=== PATIENT | male | born 1960 | race Caucasian/White ===

== ENCOUNTER → 2016-10-14 | Outpatient (CLI) | payer OTHER ==
[2016-10-14 12:32] LABS: APPEARANCE,URINE CLEAR; BILIRUBIN,URINE NEGATIVE (NEGATIVE); GLUCOSE, URINE NEGATIVE (NEGATIVE); KETONES,URINE NEGATIVE (NEGATIVE); LEUKOCYTE ESTERASE,URINE TRACE (NEGATIVE); NITRITE,URINE NEGATIVE (NEGATIVE); PROTEIN,URINE NEGATIVE (NEGATIVE); URINE SPECIFIC GRAVITY 1.008; UROBILINOGEN,URINE NEGATIVE mg/dL (<2.0)
[2016-10-14 12:52] LABS: ANION GAP 11 (5-19); BLOOD UREA NITROGEN 6 mg/dL (7-20); CALCIUM 9.2 mg/dL (8.4-10.2); CARBON DIOXIDE 26 mmol/L (22-30); CHLORIDE 105 mmol/L (98-107); CREATININE RESULT 0.92 mg/dL (0.52-1.25); GLUCOSE 82 mg/dL (75-110); POTASSIUM 4.9 mmol/L (3.6-5.0); SODIUM 141.7 mmol/L (137-145)
--- NOTE | 2016-10-14 14:20 | EKG REPORT ---
SEVERITY:- ABNORMAL ECG - SINUS RHYTHM LEFT VENTRICULAR HYPERTROPHY : Confirmed by: Marian Correa 14-Oct-2016 14:19:44
[2016-10-15 09:21] LABS: HEMOGLOBIN 14.7 g/dL (13.5-17.0); HGB HCT DIFFERENCE 0.1; MEAN CORPUSCULAR HEMOGLOBIN 30.5 pg (27.0-33.4); MEAN CORPUSCULAR HGB CONC 33.3 g/dL (32.0-36.0); MEAN CORPUSCULAR VOLUME 92 fl (80-97); RED BLOOD COUNT 4.81 10^6/uL (4.35-5.55); RED CELL DISTRIBUTION WIDTH 15.8 % (11.5-14.0); WHITE BLOOD COUNT 14.3 10^3/uL (4.0-10.5)
[2016-10-19 08:03] VITALS: BP 159/110
== END ==
LOC: OD 08:31 → EDSTATUS 10-25 12:30
PROVIDERS: ATTEND Orthopaedic Surgery
DX: Z01.810 Encounter for preprocedural cardiovascular examination (principal); Z01.812 Encounter for preprocedural laboratory examination; Z01.818 Encounter for other preprocedural examination
CPT/HCPCS: 36415; 71020; 80048; 81001; 85025; 85027; 93005; 93010

== ENCOUNTER 2017-01-12 05:35 | Inpatient (IN) | payer OTHER ==
[2017-01-04 10:49] LABS: APPEARANCE,URINE CLEAR; BILIRUBIN,URINE NEGATIVE (NEGATIVE); GLUCOSE, URINE NEGATIVE (NEGATIVE); KETONES,URINE NEGATIVE (NEGATIVE); LEUKOCYTE ESTERASE,URINE NEGATIVE (NEGATIVE); NITRITE,URINE NEGATIVE (NEGATIVE); PROTEIN,URINE NEGATIVE (NEGATIVE); URINE SPECIFIC GRAVITY 1.008; UROBILINOGEN,URINE NEGATIVE mg/dL (<2.0)
[2017-01-04 10:59] LABS: HEMATOCRIT 45.8 % (37.9-51.0); HEMOGLOBIN 15.4 g/dL (13.5-17.0); HGB HCT DIFFERENCE 0.4; MEAN CORPUSCULAR HEMOGLOBIN 29.7 pg (27.0-33.4); MEAN CORPUSCULAR HGB CONC 33.6 g/dL (32.0-36.0); MEAN CORPUSCULAR VOLUME 89 fl (80-97); RED BLOOD COUNT 5.18 10^6/uL (4.35-5.55); RED CELL DISTRIBUTION WIDTH 14.1 % (11.5-14.0); WHITE BLOOD COUNT 10.4 10^3/uL (4.0-10.5)
--- NOTE | 2017-01-04 11:27 | RADIOLOGY REPORT (SQ) ---
EXAM DESCRIPTION: CHEST PA/LATERAL COMPLETED DATE/TIME: 01/04/2017 10:51 am REASON FOR STUDY: PRE OP COMPARISON: Two-view chest 10/14/2016 EXAM PARAMETERS: NUMBER OF VIEWS: two views TECHNIQUE: Digital Frontal and Lateral radiographic views of the chest acquired. RADIATION DOSE: NA LIMITATIONS: none FINDINGS: LUNGS AND PLEURA: Mild pulmonary vascular prominence. No pleural effusions. No pneumothorax. No alveolar infiltrates. MEDIASTINUM AND HILAR STRUCTURES: No masses or contour abnormalities. HEART AND VASCULAR STRUCTURES: Heart normal size. No evidence for failure. BONES: Old right posterior 8th rib fracture HARDWARE: None in the chest. OTHER: No other significant finding. IMPRESSION: NO SIGNIFICANT RADIOGRAPHIC FINDING IN THE CHEST. TECHNICAL DOCUMENTATION: JOB ID: [id number] [employer]- All Rights Reserved
[2017-01-04 11:30] LABS: ANION GAP 10 (5-19); BLOOD UREA NITROGEN 5 mg/dL (7-20); CALCIUM 8.9 mg/dL (8.4-10.2); CARBON DIOXIDE 28 mmol/L (22-30); CHLORIDE 88 mmol/L (98-107); CREATININE RESULT 0.83 mg/dL (0.52-1.25); GLUCOSE 79 mg/dL (75-110); POTASSIUM 3.8 mmol/L (3.6-5.0); SODIUM 125.8 mmol/L (137-145)
--- NOTE | 2017-01-04 19:51 | EKG REPORT ---
SEVERITY:- ABNORMAL ECG - SINUS RHYTHM FIRST DEGREE AV BLOCK NONSPECIFIC INTRAVENTRICULAR CONDUCTION DELAY LEFT VENTRICULAR HYPERTROPHY : Confirmed by: Marian Correa 04-Jan-2017 19:50:32
[~2017-01-12 05:35] MED LIST: BUPIVACAINE INJ/PF LIPOSOME/PF 266 MG/20 ML SDV IJ PRN; CEFAZOLIN INJ 1 GM VIAL IV PRN; IBUPROFEN 800 MG/NS 250 ML IV PRN; LANSOPRAZOLE 15 MG TAB.RAP.DR PO PRN; OXYCODONE HCL SR 10 MG TABLET PO PRN; SCOPOLAMINE HYDROBROMIDE 1.5 MG PATCH.TD72 TOP PRN; VANCOMYCIN HCL 1,000 MG in DEXTROSE 5%-WATER 250 ML IV PRN
[2017-01-12] MEDS: OXYCODONE HCL SR 10 MG TABLET PO SCH ×2 (06:31→21:21)
[2017-01-12] MEDS ORDERED: THROMBIN (BOVINE) TOPICAL 20000 UNIT VIAL ONE (06:40)
[2017-01-12] MEDS ORDERED: THROMBIN (BOVINE) 5000 UNIT EPITAXIS KIT ONE (06:40)
[2017-01-12] MEDS ORDERED: BUPIVACAINE INJ/PF LIPOSOME/PF 266 MG/20 ML SDV ONE (06:41)
[2017-01-12] MEDS ORDERED: MIDAZOLAM 2 MG/2 ML INJ ONE (07:17)
[2017-01-12] MEDS ORDERED: PROMETHAZINE HCL INJ 25 MG/1 ML VIAL ONE (07:18)
[2017-01-12] MEDS ORDERED: FENTANYL CITRATE INJ/PF 250 MCG/5 ML AMPULE ONE (07:18)
[2017-01-12] MEDS ORDERED: TRANEXAMIC ACID INJ/PF 1,000 MG/10 ML SDV IV ONE ×2 (07:18→09:49)
[2017-01-12] MEDS ORDERED: PROPOFOL INJ 200 MG/20 ML VIAL IV ONE (07:18)
[2017-01-12] MEDS ORDERED: KETAMINE HCL INJ 500 MG/10 ML VIAL ONE (07:26)
[2017-01-12] MEDS: MORPHINE SULFATE 10 MG/ML INJ IV PRN ×6 (07:50→22:56)
[2017-01-12] MEDS ORDERED: VANCOMYCIN HCL INJ 1000 MG VIAL ONE (08:03)
[2017-01-12] MEDS ORDERED: FENTANYL CITRATE INJ/PF 100 MCG/2 ML AMPUL IV PRN ×3 (08:08)
[2017-01-12] MEDS ORDERED: DIPHENHYDRAMINE HCL 50 MG/ML VIAL IV PRN ×2 (08:08→08:58)
[2017-01-12] MEDS ORDERED: MEPERIDINE HCL/PF INJ 25 MG/1 ML DISP.SYRIN IV PRN (08:08)
[2017-01-12] MEDS ORDERED: MORPHINE SULFATE 10 MG/ML INJ IV PRN ×3 (08:08→08:58)
[2017-01-12] MEDS ORDERED: OXYCODONE-ACETAMINOPHEN 5-325 MG TABLET PO PRN ×2 (08:08)
[2017-01-12] MEDS ORDERED: PROMETHAZINE HCL INJ 25 MG/1 ML VIAL IV PRN ×2 (08:08)
[2017-01-12] MEDS ORDERED: ERGOCALCIFEROL PO PRN (08:57)
[2017-01-12] MEDS ORDERED: MAG HYDROX/AL HYDROX/SIMETH SUSP 30 ML UDCUP PO PRN (08:58)
[2017-01-12] MEDS ORDERED: ONDANSETRON HCL INJ/PF 4 MG/2 ML SDV IV PRN (08:58)
[2017-01-12] MEDS ORDERED: ZOLPIDEM TARTRATE 5 MG TABLET PO PRN (08:58)
[2017-01-12] MEDS ORDERED: OXYCODONE HCL IR 5 MG TABLET PO PRN (08:58)
[2017-01-12] MEDS ORDERED: ACETAMINOPHEN 325 MG TABLET PO PRN (08:58)
[2017-01-12] MEDS ORDERED: ONDANSETRON 4 MG TAB.RAPDIS PO PRN (08:58)
--- NOTE | 2017-01-12 09:03 | Operative Report ---
Operative Report DATE OF SURGERY: 01/12/17 PREOPERATIVE DIAGNOSIS: Right knee arthritis OPERATION: Right knee arthroplasty SURGEON: FABRIZIO VALLE ANESTHESIA: GA TISSUE REMOVED OR ALTERED: Bone to pathology ESTIMATED BLOOD LOSS: 100 PROCEDURE: Implants used: Femur: Triathlon #8 CR femur Tibia: 8 Tibia Tibial liner: 11 mm CS insert Patella: 40 mm oval patella Procedure with the patient supine on the operating table the right the limb is prepped and draped in a sterile fashion. The limb was elevated for exsanguination and the tourniquet inflated to 280 torr. A standard midline median parapatellar approach the knee is taken. Access is gained to the femoral canal through the intercondylar notch. Intramedullary alignment instrumentation used to resect 10 mm of distal femur in 5 of valgus. Sizing guide indicated a size 8 femur. Appropriate cutting jig is then used to fashion anterior posterior and chamfer cuts. A trial reduction femurs performed and this is judged to be adequate. Attention was next turned to the tibia. Using an extra medullary alignment system 9 millimeters was resected off the medial tibial plateau. This is sized to a size 8 tibia. A trial reduction was now performed with a 8 femur and a 8 tibia using a 11 millimeters spacer. It is full extension and central patellofemoral tracking. The articular surface the patella was next resected using an oscillating saw. All trial implants were removed. Polymethylmethacrylate is mixed and used to cement the above implants in place. On adequate curing the cement excess cement was removed the tourniquet was deflated hemostasis obtained the wound is then closed in layers using interrupted Vicryl followed by prabhakar. A sterile compressive dressing was applied and the patient returned to recovery room in satisfactory condition.
--- NOTE | 2017-01-12 09:53 | RADIOLOGY REPORT (SQ) ---
EXAM DESCRIPTION: KNEE RIGHT 2 VIEWS COMPLETED DATE/TIME: 01/12/2017 9:39 am REASON FOR STUDY: Post OP -Long Cassette in PACU M17.11 UNILATERAL PRIMARY OSTEOARTHRITIS, RIGHT KN EE COMPARISON: None. NUMBER OF VIEWS: Two view(s). TECHNIQUE: Digital radiographic images of the right knee post-procedure. LIMITATIONS: None. FINDINGS: BONES: No worrisome or unexpected findings post-procedure. DEVICE: Total knee arthroplasty. SOFT TISSUES: No worrisome findings. Expected postoperative soft tissue changes. IMPRESSION: SATISFACTORY POSTOPERATIVE RIGHT KNEE. TECHNICAL DOCUMENTATION: JOB ID: [id number] [employer]- All Rights Reserved
[2017-01-12] MEDS ORDERED: PREGABALIN 100 MG CAPSULE PO SCH (10:00)
[2017-01-12] MEDS ORDERED: HYDROXYZINE HCL 100 MG PO SCH (10:00)
[2017-01-12] MEDS ORDERED: NALTREXONE PO SCH (10:00)
[2017-01-12] MEDS ORDERED: MORPHINE SULFATE PO SCH (10:00)
[2017-01-12] MEDS: FENTANYL CITRATE INJ/PF 100 MCG/2 ML AMPUL ONE ×2 (10:05→10:08)
[2017-01-12] MEDS: MORPHINE SULFATE 10 MG/ML INJ ONE ×2 (10:14→10:18)
[2017-01-12] MEDS: PRENATAL VITAMIN W-O CA NO5/FE FUMARATE/FA CAPSULE PO SCH (11:18)
[2017-01-12] MEDS: SENNOSIDES/DOCUSATE 8.6-50 MG 1 EACH TABLET PO SCH ×2 (11:19→17:30)
[2017-01-12] MEDS: ALPRAZOLAM 0.5 MG TABLET PO SCH ×2 (11:19→17:31)
[2017-01-12] MEDS: PREGABALIN 75 MG CAPSULE PO SCH ×3 (11:22→23:11)
[2017-01-12] MEDS ORDERED: ROCURONIUM BROMIDE INJ 50 MG/5 ML VIAL IV ONE (11:49)
[2017-01-12] MEDS ORDERED: SUCCINYLCHOLINE CHLORIDE INJ 200 MG/10 ML VIAL ONE (11:49)
[2017-01-12] MEDS ORDERED: DEXAMETHASONE SOD PHOSPHATE INJ 4 MG/1 ML VIAL ONE (11:49)
[2017-01-12] MEDS ORDERED: ONDANSETRON HCL INJ/PF 4 MG/2 ML SDV ONE (11:49)
[2017-01-12] MEDS ORDERED: LIDOCAINE 2% INJ-PF (20 MG/ML) 10 ML AMPUL ONE (11:49)
[2017-01-12] MEDS: MIRTAZAPINE 15 MG TABLET PO SCH (17:29)
[2017-01-12] MEDS ORDERED: HYDROXYZINE HCL 10 MG TABLET PO SCH (18:00)
[2017-01-12] MEDS ORDERED: VANCOMYCIN HCL 1,000 MG in DEXTROSE 5%-WATER 250 ML IV ONE (20:58)
[2017-01-12] MEDS: RIVAROXABAN 10 MG TABLET PO SCH (21:22)
[2017-01-13] MEDS: MORPHINE SULFATE 10 MG/ML INJ IV PRN ×3 (01:58→07:07)
[2017-01-13 04:55] LABS: HEMATOCRIT 37.3 % (37.9-51.0); HEMOGLOBIN 12.5 g/dL (13.5-17.0); HGB HCT DIFFERENCE 0.2; MEAN CORPUSCULAR HEMOGLOBIN 29.9 pg (27.0-33.4); MEAN CORPUSCULAR HGB CONC 33.4 g/dL (32.0-36.0); MEAN CORPUSCULAR VOLUME 90 fl (80-97); RED BLOOD COUNT 4.17 10^6/uL (4.35-5.55); WHITE BLOOD COUNT 17.3 10^3/uL (4.0-10.5)
[2017-01-13 05:12] LABS: ANION GAP 6 (5-19); BLOOD UREA NITROGEN 7 mg/dL (7-20); CALCIUM 8.7 mg/dL (8.4-10.2); CARBON DIOXIDE 28 mmol/L (22-30); CHLORIDE 100 mmol/L (98-107); CREATININE RESULT 0.94 mg/dL (0.52-1.25); GLUCOSE 115 mg/dL (75-110); POTASSIUM 3.9 mmol/L (3.6-5.0); SODIUM 134.3 mmol/L (137-145)
[2017-01-13] MEDS: LANSOPRAZOLE 30 MG TAB.RAP.DR PO SCH (05:18)
[2017-01-13] MEDS: PREGABALIN 75 MG CAPSULE PO SCH ×4 (05:18→23:36)
[2017-01-13] MEDS ORDERED: ZOLPIDEM TARTRATE 5 MG TABLET PO PRN (07:43)
[2017-01-13] MEDS ORDERED: MAG HYDROX/AL HYDROX/SIMETH SUSP 30 ML UDCUP PO PRN (07:44)
[2017-01-13] MEDS ORDERED: ONDANSETRON HCL INJ/PF 4 MG/2 ML SDV IV PRN (07:44)
[2017-01-13] MEDS: MORPHINE SULFATE 10 MG/ML INJ IM PRN ×6 (08:44→19:01)
[2017-01-13] MEDS: RINGERS SOLUTION,LACTATED 1,000 ML IV PRN ×2 (08:56→17:16)
[2017-01-13] MEDS: PRENATAL VITAMIN W-O CA NO5/FE FUMARATE/FA CAPSULE PO SCH (09:15)
[2017-01-13] MEDS: SENNOSIDES/DOCUSATE 8.6-50 MG 1 EACH TABLET PO SCH ×2 (09:15→17:11)
[2017-01-13] MEDS: OXYCODONE HCL SR 10 MG TABLET PO SCH (09:16)
[2017-01-13] MEDS: ALPRAZOLAM 0.5 MG TABLET PO SCH ×2 (09:17→17:12)
[2017-01-13] MEDS: HYDROXYZINE PAMOATE 50 MG CAPSULE PO SCH ×2 (09:22→17:15)
[2017-01-13] MEDS: MIRTAZAPINE 15 MG TABLET PO SCH (17:11)
[2017-01-13] MEDS: OXYCODONE HCL SR 40 MG TABLET PO SCH (21:05)
[2017-01-13] MEDS: RIVAROXABAN 10 MG TABLET PO SCH (21:05)
[2017-01-14 05:24] LABS: HEMOGLOBIN 12.6 g/dL (13.5-17.0); HGB HCT DIFFERENCE 0.8; MEAN CORPUSCULAR HEMOGLOBIN 30.9 pg (27.0-33.4); MEAN CORPUSCULAR HGB CONC 34.2 g/dL (32.0-36.0); MEAN CORPUSCULAR VOLUME 91 fl (80-97); RED BLOOD COUNT 4.09 10^6/uL (4.35-5.55); WHITE BLOOD COUNT 12.9 10^3/uL (4.0-10.5)
[2017-01-14] MEDS: LANSOPRAZOLE 30 MG TAB.RAP.DR PO SCH (05:50)
[2017-01-14] MEDS: PREGABALIN 75 MG CAPSULE PO SCH (05:50)
--- NOTE | 2017-01-14 07:03 | PDOC DISCHARGE SUMMARY ---
General - Admit/Disc Date/PCP Admission Date/Primary Care Provider: 01/12/17 05:35 ISELA DAVIS NP Discharge Date: 01/14/17 - Discharge Diagnosis (1) Arthritis of knee, right Is this a current diagnosis for this admission?: Yes - Additional Information Discharge Diet: As Tolerated, Regular Discharge Activity: Balance Activity w/Rest, No Driving, No tub bath Home Medications: Oxycodone HCl/Acetaminophen [Percocet 10-325 mg Tablet] 2 each PO QID 08/28/15 Pregabalin [Lyrica 100 mg Capsule] 150 mg PO QID 08/28/15 Alprazolam [Xanax 0.5 mg Tablet] 0.5 mg PO BID 10/13/16 Ergocalciferol (Vitamin D2) [Vitamin D] 1 tab PO ASDIR PRN 10/13/16 Hydroxyzine HCl 100 mg PO BID 10/13/16 Mirtazapine [Remeron] 30 mg PO QPM 10/13/16 Morphine Sulfate/Naltrexone [Embeda ER 50-2 mg Capsule] 1 each PO BID 10/19/16 Oxycodone HCl [Oxy-Ir 5 mg Tablet] 10 mg PO Q6HP PRN #0 tablet 01/14/17 Rivaroxaban [Xarelto 10 mg Tablet] 10 mg PO QHS #0 tablet 01/14/17 History of Present Illness History of Present Illness: MILAGROS FAIRBANKS JR is a 56 year old male post left above-knee amputation now progressive right knee pain and functional disability secondary osteoarthritis. Patient is admitted for elective right knee arthroplasty. Hospital Course Hospital Course: To the operating room where he undergoes an uncomplicated right knee arthroplasty. Is returned to the floor in satisfactory condition. Initially there is problems with adequacy of analgesia. This is addressed with medication. Hematocrit remains above 37%. The patient makes excellent progress with physical therapy. Physical Exam Vital Signs: Temp Pulse Resp BP Pulse Ox 37.6 C 86 17 146/76 H 93 01/13/17 23:51 01/13/17 23:51 01/13/17 23:51 01/13/17 23:51 01/13/17 23:51 Intake & Output 01/13/17 01/14/17 01/15/17 06:59 06:59 06:59 Intake Total 5500 3400 Output Total 4700 5550 Balance 800 -2150 Weight 113.4 kg 113.4 kg General appearance: PRESENT: no acute distress Head exam: PRESENT: normocephalic Eye exam: PRESENT: EOMI Respiratory exam: PRESENT: unlabored Cardiovascular exam: PRESENT: RRR Pulses: PRESENT: +1 pedal pulses bilateral Vascular exam: PRESENT: normal capillary refill GI/Abdominal exam: PRESENT: soft Rectal exam: PRESENT: deferred Extremities exam: PRESENT: other - Right lower extremity picot dressing with a small amount of drainage distally is otherwise clean dry and intact. There is minimal pedal edema. Neurovascular examination is intact. Neurological exam: PRESENT: alert, awake, oriented to person, oriented to place , oriented to time, oriented to situation. ABSENT: motor sensory deficit Psychiatric exam: PRESENT: appropriate affect, normal mood. ABSENT: homicidal ideation, suicidal ideation Skin exam: PRESENT: dry, intact, warm. ABSENT: cyanosis, rash Results Laboratory Results: 01/14/17 04:58 01/13/17 04:34 01/14/17 04:58 WBC 12.9 H RBC 4.09 L Hgb 12.6 L Hct 37.0 L MCV 91 MCH 30.9 MCHC 34.2 RDW 15.0 H Plt Count 204 Impressions: Chest X-Ray 01/04/17 10:16 IMPRESSION: NO SIGNIFICANT RADIOGRAPHIC FINDING IN THE CHEST. Knee X-Ray 01/12/17 09:00 IMPRESSION: SATISFACTORY POSTOPERATIVE RIGHT KNEE. Status: Imported from PACS Plan Discharge Plan: Discharge home with home health nursing, home health physical therapy, wheeled walker, bedside commode. Visiting nurse service to change right knee picot dressing on postop day 7 and replaced with an OpSite. Follow-up will be with Dr. Parrish and [facility] for surgery in 2 weeks for staple removal. Time Spent: Less than 30 Minutes
[2017-01-14] MEDS: ALPRAZOLAM 0.5 MG TABLET PO SCH (09:36)
[2017-01-14] MEDS: SENNOSIDES/DOCUSATE 8.6-50 MG 1 EACH TABLET PO SCH (09:36)
[2017-01-14] MEDS: PRENATAL VITAMIN W-O CA NO5/FE FUMARATE/FA CAPSULE PO SCH (09:36)
[2017-01-14] MEDS: OXYCODONE HCL SR 40 MG TABLET PO SCH (09:36)
[2017-01-14] MEDS: HYDROXYZINE PAMOATE 50 MG CAPSULE PO SCH (09:37)
[2017-01-14 12:03] VITALS: BP 140/82
== END 2017-01-14 12:53 | disposition home health service (06) | DRG 470 ==
LOC: INOR 05:35 → 4S 11:07
PROVIDERS: ADMIT Orthopaedic Surgery; ATTEND Orthopaedic Surgery
PROC: 0SRC0J9 Replacement of Right Knee Joint with Synthetic Substitute, Cemented, Open Approach (ICD-10-PCS; principal; 2017-01-12 07:30)
DX: M17.11 Unilateral primary osteoarthritis, right knee (principal); Z79.899 Other long term (current) drug therapy; Z89.612 Acquired absence of left leg above knee; Z88.6 Allergy status to analgesic agent; Z91.013 Allergy to seafood; Z83.3 Family history of diabetes mellitus; Z80.1 Family history of malignant neoplasm of trachea, bronchus and lung
CPT/HCPCS: 01402; 36415; 71020; 80048; 81001; 85027; 88305; 93005; 93010; 94799; C9290; J0330; J0690; J1100; J1741; J2250; J2270; J2405; J2550; J2704; J3010; J3370; J3490; J7050; J7060; J7120

== ENCOUNTER 2017-05-25 05:29 | Day surgery (SDC) | payer OTHER ==
[2017-05-23 09:53] LABS: ABSOLUTE BASOPHILS # (AUTO) 0.1 10^3/uL (0.0-0.2); ABSOLUTE EOSINOPHILS # (AUTO) 0.3 10^3/uL (0.0-0.6); ABSOLUTE LYMPHOCYTES (AUTO) 2.1 10^3/uL (0.5-4.7); ABSOLUTE NEUT (AUTO) 5.2 10^3/uL (1.7-8.2); BASOPHILS % (AUTO) 1.1 % (0-2); HEMATOCRIT 40.7 % (37.9-51.0); HGB HCT DIFFERENCE 1.3; LYMPHOCYTES % (AUTO) 23.9 % (13-45); MEAN CORPUSCULAR HEMOGLOBIN 30.3 pg (27.0-33.4); MEAN CORPUSCULAR HGB CONC 34.4 g/dL (32.0-36.0); MEAN CORPUSCULAR VOLUME 88 fl (80-97); MONOCYTES % (AUTO) 11.1 % (3-13); RED BLOOD COUNT 4.62 10^6/uL (4.35-5.55); RED CELL DISTRIBUTION WIDTH 13.8 % (11.5-14.0); SEGMENTED NEUTROPHILS % (AUTO) 60.9 % (42-78); WHITE BLOOD COUNT 8.6 10^3/uL (4.0-10.5)
--- NOTE | 2017-05-23 09:54 | EKG REPORT ---
SEVERITY:- ABNORMAL ECG - SINUS RHYTHM FIRST DEGREE AV BLOCK NONSPECIFIC INTRAVENTRICULAR CONDUCTION DELAY LEFT VENTRICULAR HYPERTROPHY : Confirmed by: Marian Correa 23-May-2017 09:53:38
[2017-05-23 10:24] LABS: ANION GAP 13 (5-19); BLOOD UREA NITROGEN 5 mg/dL (7-20); CALCIUM 8.7 mg/dL (8.4-10.2); CARBON DIOXIDE 30 mmol/L (22-30); CHLORIDE 88 mmol/L (98-107); CREATININE RESULT 0.92 mg/dL (0.52-1.25); GLUCOSE 84 mg/dL (75-110); POTASSIUM 3.8 mmol/L (3.6-5.0); SODIUM 130.7 mmol/L (137-145)
[2017-05-23 12:16] LABS: APPEARANCE,URINE CLEAR; BILIRUBIN,URINE NEGATIVE (NEGATIVE); GLUCOSE, URINE NEGATIVE (NEGATIVE); KETONES,URINE NEGATIVE (NEGATIVE); LEUKOCYTE ESTERASE,URINE NEGATIVE (NEGATIVE); NITRITE,URINE NEGATIVE (NEGATIVE); PROTEIN,URINE NEGATIVE (NEGATIVE); URINE SPECIFIC GRAVITY 1.009; UROBILINOGEN,URINE NEGATIVE mg/dL (<2.0)
[2017-05-23 12:24] LABS: BACTERIA,URINE TRACE /HPF
[~2017-05-25 05:29] MED LIST changes: -BUPIVACAINE INJ/PF LIPOSOME/PF 266 MG/20 ML SDV IJ PRN; +CEFAZOLIN 2 GM/D5W RTU 2 GM/50 ML RTUPB IV PRN; -CEFAZOLIN INJ 1 GM VIAL IV PRN; -IBUPROFEN 800 MG/NS 250 ML IV PRN; +LACTATED RINGERS 1000 ML IV PRN; -LANSOPRAZOLE 15 MG TAB.RAP.DR PO PRN; +LIDOCAINE 0.5% INJ-PF (5 MG/ML) 50 ML SDV SUBCUT PRN; -OXYCODONE HCL SR 10 MG TABLET PO PRN; -SCOPOLAMINE HYDROBROMIDE 1.5 MG PATCH.TD72 TOP PRN; -VANCOMYCIN HCL 1,000 MG in DEXTROSE 5%-WATER 250 ML IV PRN
[2017-05-25] MEDS ORDERED: MIDAZOLAM 2 MG/2 ML INJ ONE (07:11)
[2017-05-25] MEDS ORDERED: PROPOFOL INJ 200 MG/20 ML VIAL IV ONE (07:12)
[2017-05-25] MEDS ORDERED: KETAMINE HCL INJ 500 MG/10 ML VIAL ONE (07:12)
[2017-05-25] MEDS ORDERED: FENTANYL CITRATE INJ/PF 100 MCG/2 ML AMPUL ONE (07:12)
[2017-05-25] MEDS ORDERED: DIPHENHYDRAMINE HCL 50 MG/ML VIAL IV PRN (08:06)
[2017-05-25] MEDS ORDERED: PROMETHAZINE HCL INJ 25 MG/1 ML VIAL IV PRN ×2 (08:06)
[2017-05-25] MEDS ORDERED: MEPERIDINE HCL/PF INJ 25 MG/1 ML DISP.SYRIN IV PRN (08:06)
[2017-05-25] MEDS ORDERED: BUPIVACAINE HCL 0.5%-EPI 1:200000 INJ/PF 30 ML VIAL ONE (08:06)
[2017-05-25] MEDS ORDERED: FENTANYL CITRATE INJ/PF 100 MCG/2 ML AMPUL IV PRN ×3 (08:06)
[2017-05-25] MEDS ORDERED: MORPHINE SULFATE 10 MG/ML INJ IV PRN (08:06)
[2017-05-25] MEDS ORDERED: OXYCODONE-ACETAMINOPHEN 5-325 MG TABLET PO PRN ×2 (08:06)
--- NOTE | 2017-05-25 08:17 | Operative Report ---
Operative Report DATE OF SURGERY: 05/25/17 PREOPERATIVE DIAGNOSIS: Right patellar tendinitis status post total knee arthroplasty OPERATION: Debridement of patellar tendinitis and repair of patellar tendon SURGEON: FABRIZIO VALLE ANESTHESIA: GA TISSUE REMOVED OR ALTERED: Cultures to microbiology, tissue to pathology ESTIMATED BLOOD LOSS: 100 PROCEDURE: The patient supine on the operative table the right lower extremities prepped and draped in sterile fashion. Limb was elevated for exsanguination but the tourniquet is nonfunctional. The decision was made to proceed without the tourniquet which would require reprepping and draping. A longitudinal incision is made the distal end of the knee incision extending distally over the tibial tubercle. Sharp dissection was used to dissect medial around the existing patellar tendon. Upon entering the knee capsule cultures are taken. The fibrous material underlying the tibial tubercles debrided using combination of a rondure and a curette. The amount of bone in the tibial tubercle does not appear to be substantial enough to be secured with a screw and a decision was made to anchor this with suture. The bone underlying the insertion of the patella tendon is roughened with a rongeur for improved adhesion. A #5 fire FiberWire was then passed in a double loop fashion between the tibial tubercle/ patellar tendon and the underlying tibia. Prior to tying the suture down the space was packed with Vitoss bone graft substitute. The FiberWire is then cinched down. The wound is irrigated. The knee capsule was repaired using interrupted 0 Vicryl as is the subcutaneous tissue followed by prabhakar. A sterile compressive dressing was applied and the patient's return to the PACU in satisfactory condition.
[2017-05-25] MEDS ORDERED: MORPHINE SULFATE 10 MG/ML INJ ONE (08:18)
[2017-05-25] MEDS: FENTANYL CITRATE INJ/PF 100 MCG/2 ML AMPUL ONE ×2 (08:40→08:45)
[2017-05-25] MEDS: MORPHINE SULFATE 10 MG/ML INJ ONE ×2 (08:55→09:05)
[2017-05-25] MEDS ORDERED: OXYCODONE HCL IR 5 MG TABLET PO PRN (09:05)
[2017-05-25] MEDS ORDERED: ONDANSETRON 4 MG TAB.RAPDIS SL PRN (09:05)
[2017-05-25 10:57] VITALS: BP 127/74
[2017-05-25] MEDS ORDERED: GLYCOPYRROLATE INJ 0.4 MG/2 ML VIAL ONE (13:34)
[2017-05-25] MEDS ORDERED: DEXAMETHASONE SOD PHOSPHATE INJ 4 MG/1 ML VIAL ONE (13:34)
[2017-05-25] MEDS ORDERED: NEOSTIGMINE METHYLSULFATE 10 MG/10 ML VIAL ONE (13:34)
[2017-05-25] MEDS ORDERED: ONDANSETRON HCL INJ/PF 4 MG/2 ML SDV ONE (13:34)
[2017-05-25] MEDS ORDERED: KETOROLAC TROMETHAMINE 60 MG/2 ML SDV ONE (13:34)
[2017-05-25] MEDS ORDERED: LIDOCAINE 2% INJ-PF (20 MG/ML) 2 ML AMPUL ONE (13:34)
[2017-05-25] MEDS ORDERED: SUCCINYLCHOLINE CHLORIDE INJ 200 MG/10 ML VIAL ONE (13:34)
== END 2017-05-25 10:40 | disposition home or self-care (01) ==
LOC: OROUT 05:29
PROVIDERS: ATTEND Orthopaedic Surgery
PROC: 0LBQ0ZZ Excision of Right Knee Tendon, Open Approach (ICD-10-PCS; principal; 2017-05-25 07:30)
DX: M76.51 Patellar tendinitis, right knee (principal); Z96.651 Presence of right artificial knee joint; M19.90 Unspecified osteoarthritis, unspecified site; F17.210 Nicotine dependence, cigarettes, uncomplicated; Z79.899 Other long term (current) drug therapy; Z79.01 Long term (current) use of anticoagulants
CPT/HCPCS: 93005; 36415; 87070; 87205; 85025; 87075; 80048; 81001; 88305 ×2; 93010; 11043; L1830; J2250; J3490 ×2; J1100; J1885; J3010; J2270; J0330; J2405; J2704; J0690; 400

== ENCOUNTER → 2017-06-09 | Outpatient (CLI) | payer OTHER ==
[2017-06-09 11:11] LABS: HEMATOCRIT 41.2 % (37.9-51.0); HEMOGLOBIN 14.2 g/dL (13.5-17.0); HGB HCT DIFFERENCE 1.4; MEAN CORPUSCULAR HEMOGLOBIN 30.4 pg (27.0-33.4); MEAN CORPUSCULAR HGB CONC 34.5 g/dL (32.0-36.0); MEAN CORPUSCULAR VOLUME 88 fl (80-97); RED BLOOD COUNT 4.68 10^6/uL (4.35-5.55); RED CELL DISTRIBUTION WIDTH 13.4 % (11.5-14.0); WHITE BLOOD COUNT 8.4 10^3/uL (4.0-10.5)
[2017-06-09 11:41] LABS: ALANINE AMINOTRANSFERASE 21 U/L (21-72); ALBUMIN 3.8 g/dL (3.5-5.0); ALKALINE PHOSPHATASE 139 U/L (38-126); ANION GAP 11 (5-19); ASPARTATE AMINO TRANSFERASE 17 U/L (17-59); BILIRUBIN,DIRECT 0.2 mg/dL (0.0-0.4); BILIRUBIN,TOTAL 0.3 mg/dL (0.2-1.3); BLOOD UREA NITROGEN 5 mg/dL (7-20); C-REACTIVE PROTEIN 22.4 mg/L (<10.0); CALCIUM 9.5 mg/dL (8.4-10.2); CARBON DIOXIDE 26 mmol/L (22-30); CHLORIDE 99 mmol/L (98-107); GLUCOSE 87 mg/dL (75-110); POTASSIUM 4.6 mmol/L (3.6-5.0); SODIUM 135.8 mmol/L (137-145); TOTAL PROTEIN 6.7 g/dL (6.3-8.2)
[2017-06-09 11:59] LABS: ERYTHROCYTE SEDIMENTATION RATE 22 mm/hr (0-20)
== END ==
LOC: OD 10:34
PROVIDERS: ATTEND Orthopaedic Surgery
DX: T84.398D Other mechanical complication of other bone devices, implants and grafts, subsequent encounter (principal)
CPT/HCPCS: 36415; 80053; 85027; 85652; 86140

== ENCOUNTER → 2017-06-15 | Day surgery (SDC) | payer OTHER ==
[2017-06-14 12:03] LABS: ABSOLUTE BASOPHILS # (AUTO) 0.1 10^3/uL (0.0-0.2); ABSOLUTE EOSINOPHILS # (AUTO) 0.2 10^3/uL (0.0-0.6); ABSOLUTE LYMPHOCYTES (AUTO) 2.4 10^3/uL (0.5-4.7); ABSOLUTE MONOCYTES (AUTO) 0.6 10^3/uL (0.1-1.4); ABSOLUTE NEUT (AUTO) 5.9 10^3/uL (1.7-8.2); BASOPHILS % (AUTO) 1.3 % (0-2); EOSINOPHILS % (AUTO) 2.6 % (0-6); HEMOGLOBIN 15.5 g/dL (13.5-17.0); MEAN CORPUSCULAR HEMOGLOBIN 29.7 pg (27.0-33.4); MEAN CORPUSCULAR HGB CONC 33.6 g/dL (32.0-36.0); MEAN CORPUSCULAR VOLUME 88 fl (80-97); MONOCYTES % (AUTO) 6.9 % (3-13); PLATELET COUNT 347 10^3/uL (150-450); RED CELL DISTRIBUTION WIDTH 13.7 % (11.5-14.0); SEGMENTED NEUTROPHILS % (AUTO) 63.2 % (42-78); TOTAL CELLS COUNTED % (AUTO) 100 %; WHITE BLOOD COUNT 9.4 10^3/uL (4.0-10.5)
[2017-06-14 12:06] LABS: APPEARANCE,URINE CLEAR; BILIRUBIN,URINE NEGATIVE (NEGATIVE); COLOR,URINE STRAW; GLUCOSE, URINE NEGATIVE (NEGATIVE); KETONES,URINE NEGATIVE (NEGATIVE); LEUKOCYTE ESTERASE,URINE NEGATIVE (NEGATIVE); NITRITE,URINE NEGATIVE (NEGATIVE); PROTEIN,URINE NEGATIVE (NEGATIVE); URINE SPECIFIC GRAVITY 1.001; UROBILINOGEN,URINE NEGATIVE mg/dL (<2.0)
[2017-06-14 12:30] LABS: ANION GAP 13 (5-19); BLOOD UREA NITROGEN 9 mg/dL (7-20); CALCIUM 10.1 mg/dL (8.4-10.2); CARBON DIOXIDE 28 mmol/L (22-30); CHLORIDE 93 mmol/L (98-107); GLUCOSE 91 mg/dL (75-110); POTASSIUM 4.8 mmol/L (3.6-5.0); SODIUM 134.3 mmol/L (137-145)
[~2017-06-15] MED LIST changes: -CEFAZOLIN 2 GM/D5W RTU 2 GM/50 ML RTUPB IV PRN; +HYDROMORPHONE HCL INJ/PF 2 MG/ML AMPULE ONE
[2017-06-15 10:01] VITALS: BP 131/86
== END ==
LOC: OROUT 08:43
PROVIDERS: ATTEND Orthopaedic Surgery
DX: Z01.818 Encounter for other preprocedural examination (principal); T84.398D Other mechanical complication of other bone devices, implants and grafts, subsequent encounter; M76.51 Patellar tendinitis, right knee
CPT/HCPCS: 36415; 85025; 80048; 81001; J1170

== ENCOUNTER 2017-06-29 06:07 | Day surgery (SDC) | payer OTHER ==
[2017-06-29] MEDS ORDERED: FENTANYL CITRATE INJ/PF 100 MCG/2 ML AMPUL ONE ×2 (06:54→06:55)
[2017-06-29] MEDS ORDERED: MIDAZOLAM 2 MG/2 ML INJ ONE ×2 (06:55→07:35)
[2017-06-29] MEDS ORDERED: PROPOFOL INJ 200 MG/20 ML VIAL IV ONE ×2 (06:56→10:38)
[2017-06-29] MEDS ORDERED: ACETAMINOPHEN 0 ML IV ONE (06:56)
[2017-06-29] MEDS ORDERED: THROMBIN (BOVINE) TOPICAL 20000 UNIT VIAL ONE (07:28)
[2017-06-29] MEDS ORDERED: BACITRACIN INJ 50,000 UNIT VIAL ONE (07:28)
[2017-06-29] MEDS ORDERED: THROMBIN (BOVINE) 5000 UNIT EPITAXIS KIT ONE (07:28)
[2017-06-29] MEDS ORDERED: POLYMYXIN B SULFATE INJ 500000 UNIT VIAL ONE (07:28)
[2017-06-29] MEDS ORDERED: BUPIVACAINE INJ/PF LIPOSOME/PF 266 MG/20 ML SDV ONE (07:29)
[2017-06-29] MEDS ORDERED: ALBUTEROL SULFATE 0.083% NEB 2.5 MG/3 ML AMPUL NEB ONE (07:40)
[2017-06-29] MEDS ORDERED: MORPHINE SULFATE 10 MG/ML INJ ONE (08:07)
[2017-06-29] MEDS ORDERED: CEFAZOLIN INJ 1 GM VIAL ONE (08:47)
[2017-06-29] MEDS ORDERED: PROMETHAZINE HCL INJ 25 MG/1 ML VIAL IV PRN (09:03)
[2017-06-29] MEDS ORDERED: MORPHINE SULFATE 10 MG/ML INJ IV PRN (09:03)
[2017-06-29] MEDS ORDERED: FENTANYL CITRATE INJ/PF 100 MCG/2 ML AMPUL IV PRN ×3 (09:03)
[2017-06-29] MEDS ORDERED: DIPHENHYDRAMINE HCL 50 MG/ML VIAL IV PRN (09:03)
--- NOTE | 2017-06-29 09:23 | Operative Report ---
Operative Report DATE OF SURGERY: 06/29/17 PREOPERATIVE DIAGNOSIS: Serous drainage status post right knee arthroplasty followed by patellar tendinitis debridement OPERATION: Irrigation debridement of wound SURGEON: FABRIZIO VALLE 1ST ROLLER COASTER ENGINEER: KELLY YANG ANESTHESIA: GA TISSUE REMOVED OR ALTERED: Cultures 2 to microbiology. Tissue 1 to pathology ESTIMATED BLOOD LOSS: Minimal INTRAOPERATIVE FINDINGS: Clean and intact wound bed PROCEDURE: With the patient supine on the operating table the right lower extremity was prepped and draped in a sterile fashion. Limb was elevated for exsanguination tourniquet inflated 280 torr. Subsequently longitudinal incision was made over the distal third of the previous incision. There is a eschar covered sinus tract which is ellipsed. The underlying wound bed is inspected and appears to be viable without any type of fluid collection. The wound bed is cultured 2. The ellipsed skin is sent to pathology. The wound is irrigated with 3 L normal saline containing bacitracin pulse lavage. The tourniquet is deflated. Hemostasis obtained with electrocautery. The wound was reapproximated using interrupted PDS followed by nylon. A sterile compressive dressing was applied and the patient's return to the PACU in satisfactory condition.
[2017-06-29] MEDS ORDERED: OXYCODONE HCL IR 5 MG TABLET PO PRN (09:45)
[2017-06-29] MEDS ORDERED: ONDANSETRON 4 MG TAB.RAPDIS SL PRN (09:45)
[2017-06-29 10:16] LABS: HEMATOCRIT 37.3 % (37.9-51.0); HEMOGLOBIN 12.4 g/dL (13.5-17.0); MEAN CORPUSCULAR HEMOGLOBIN 29.3 pg (27.0-33.4); MEAN CORPUSCULAR HGB CONC 33.2 g/dL (32.0-36.0); MEAN CORPUSCULAR VOLUME 88 fl (80-97); PLATELET COUNT 239 10^3/uL (150-450); RED BLOOD COUNT 4.23 10^6/uL (4.35-5.55); RED CELL DISTRIBUTION WIDTH 13.9 % (11.5-14.0); WHITE BLOOD COUNT 6.5 10^3/uL (4.0-10.5)
[2017-06-29] MEDS: FENTANYL CITRATE INJ/PF 100 MCG/2 ML AMPUL ONE ×2 (10:16→10:23)
[2017-06-29 10:32] LABS: ANION GAP 7 (5-19); BLOOD UREA NITROGEN 5 mg/dL (7-20); C-REACTIVE PROTEIN 18.5 mg/L (<10.0); CALCIUM 9.2 mg/dL (8.4-10.2); CARBON DIOXIDE 29 mmol/L (22-30); CHLORIDE 104 mmol/L (98-107); GLUCOSE 88 mg/dL (75-110); POTASSIUM 4.4 mmol/L (3.6-5.0); SODIUM 140.4 mmol/L (137-145)
[2017-06-29 10:53] LABS: ERYTHROCYTE SEDIMENTATION RATE 11 mm/hr (0-20)
[2017-06-29] MEDS ORDERED: DEXAMETHASONE SOD PHOSPHATE INJ 4 MG/1 ML VIAL ONE (11:53)
[2017-06-29] MEDS ORDERED: SUCCINYLCHOLINE CHLORIDE INJ 200 MG/10 ML VIAL ONE (11:53)
[2017-06-29] MEDS ORDERED: PHENYLEPHRINE HCL INJ/PF 10 MG/1 ML SDV ONE (11:53)
[2017-06-29] MEDS ORDERED: ONDANSETRON HCL INJ/PF 4 MG/2 ML SDV ONE (11:53)
[2017-06-29] MEDS ORDERED: GLYCOPYRROLATE INJ 0.4 MG/2 ML VIAL ONE (11:53)
[2017-06-29] MEDS ORDERED: LIDOCAINE 2% INJ-PF (20 MG/ML) 2 ML AMPUL ONE (11:53)
[2017-06-29] MEDS ORDERED: KETOROLAC TROMETHAMINE INJ/PF 30 MG/1 ML SDV IV ONE (12:00)
[2017-06-29 12:21] VITALS: BP 156/79
== END 2017-06-29 12:30 | disposition home or self-care (01) ==
LOC: OROUT 06:07
PROVIDERS: ATTEND Orthopaedic Surgery
PROC: 0S9C0ZX Drainage of Right Knee Joint, Open Approach, Diagnostic (ICD-10-PCS; principal; 2017-06-29 08:15)
DX: T84.89XD Other specified complication of internal orthopedic prosthetic devices, implants and grafts, subsequent encounter (principal); Z96.651 Presence of right artificial knee joint; M76.51 Patellar tendinitis, right knee; F17.210 Nicotine dependence, cigarettes, uncomplicated; M19.90 Unspecified osteoarthritis, unspecified site; E66.9 Obesity, unspecified; Z79.01 Long term (current) use of anticoagulants; Z68.28 Body mass index [BMI] 28.0-28.9, adult
CPT/HCPCS: 36415; 87070; 87205; 85027; 85652; 87075; 86140; 80048; 94640; 27310; J2250; J3490 ×3; J0690; J1100; J3010; J2270; J2370; J0330; J2405; J2704; 400; C9290; J0131

== ENCOUNTER → 2017-09-08 | Day surgery (SDC) | payer OTHER ==
[~2017-09-08] MED LIST changes: +BUPIVACAINE HCL 0.5 % INJ/PF 30 ML SDV ONE; -HYDROMORPHONE HCL INJ/PF 2 MG/ML AMPULE ONE; -LACTATED RINGERS 1000 ML IV PRN; -LIDOCAINE 0.5% INJ-PF (5 MG/ML) 50 ML SDV SUBCUT PRN; +LIDOCAINE 1% INJ-PF (10 MG/ML) 30 ML SDV ONE
--- NOTE | 2017-09-08 09:26 | Operative Report ---
PROCEDURE: KNEE RADIOFREQUENCY right under ultrasound guidance Preoperative Diagnosis: Right knee osteoarthritis Postoperative Diagnosis: Right knee osteoarthritis 1. Superolateral genicular branch from the vastus lateralis 2. Superomedial genicular branch from the vastus medialis 3. Inferomedial genicular branch from the saphenous nerve 4. Medial retinacular branch from the vastus intermedius DATE OF PROCEDURE: September 08, 2017 ANESTHESIA: Local anesthesia COMPLICATIONS: None reported PROCEDURE IN DETAIL: Hx/PE/meds/allergies/applicable labs reviewed. No changes and no contraindications were found. Full description of the procedure was provided including benefits as well as possible complications including transient increased pain, stomach irritation, mood alteration, transient weakness or parasthesias as well as more serious nerve injury, bleeding, infection or allergic reaction. Informed consent was obtained and documented. The patient was brought to the procedure room and placed on the exam table in a comfortable supine position. The place for needle placement was obtained by manual palpation with ultrasound confirmation. The sterile field was prepared by chloroprep and sterile drapes. Local anesthesia superficial and deep was provided by local infiltration of 2% lidocaine. A 17g 50 mm radiofrequency introducer needle with a 4 mm active tip was placed overlying the right knee joint and using ultrasound guidance the needle was advanced to a bony endpoint on the superiolateral portion of the femoral condyle of the right knee. A second needle was advanced to a bony endpoint on the superiomedial portion of the femoral condyle. A third needle was then placed over the inferiomedial portion of the tibial condyle until a bony endpoint was met. 4th needle placed 3mm above the patella. Attempted aspiration yielded no blood. Transverse ultrasound views showed all the needles at 50% depth of the femur and tibia. Motor stimulation was tested at 2.0 volts with no leg movement. Images were saved in AP and lateral. A mixture consisting of 0.5% bupivacaine was slowly injected. Then a radiofrequency ablation of each of the geniculate nerves were done at 80 degrees Celsius for 2 minutes and 30 seconds each. The needles were withdrawn. The patient tolerated the procedure well. After observation the patient was discharged with instructions and follow up. They were also provided contact information to call regarding any concerning symptoms or questions. IMPRESSION: 1. Successful geniculate right knee radiofrequency ablation was performed. 2. The patient was given prescription of home medicines. 3. RTC in 1-2 week(s).
== END ==
LOC: RAD 07:47
PROVIDERS: ATTEND Family Medicine
DX: M17.11 Unilateral primary osteoarthritis, right knee (principal)
CPT/HCPCS: 64640 ×3; J3490 ×2

== ENCOUNTER → 2017-10-08 | Outpatient (CLI) | payer OTHER ==
--- NOTE | 2017-10-08 20:30 | RADIOLOGY REPORT (SQ) ---
EXAM DESCRIPTION: CT RT LOWER EXTREMITY WITHOUT COMPLETED DATE/TIME: 10/08/2017 10:37 am REASON FOR STUDY: PAIN IN RIGHT KNEE M25.561 PAIN IN RIGHT KNEE COMPARISON: None. TECHNIQUE: Axial imaging performed through the right knee with reformatted coronal and sagittal imag ing windowed for bone and soft tissues. Images saved to PACS. 3D IMAGING: Were 3D images as MIP, SSD, or volume rendering performed at the work station? Yes. All CT scanners at this facility use dose modulation, iterative reconstruction, and/or weight based d osing when appropriate to reduce radiation dose to as low as reasonably achievable (ALARA). [facility]: Dose Right [facility]: CareDose [facility]: Dose Right [facility]: Teradose 4D [facility]: [employer] LIMITATIONS: Generalized beam hardening artifact related to knee arthroplasty. This partially obscu res the regional tissues. RADIATION DOSE: CT Rad equipment meets quality standard of care and radiation dose reduction techniq ues were employed. CTDIvol: 6.7 mGy. DLP: 226 mGy-cm. mGy. FINDINGS: SOFT TISSUES: Small joint effusion. BONES: Normal bone density. No abnormal lucency along the bone/ arthroplasty interfaces. No subluxa tion or dislocation. No periprosthetic fracture or bone lesion detected. Prominent well corticated irregular calcification along the anterior tibial tuberosity. MINERALIZATION: Normal. OTHER: No other significant finding. IMPRESSION: 1. Intact right knee arthroplasty without evidence of gross loosening, periprosthetic fr acture or subluxation. 2. Small joint effusion. TECHNICAL DOCUMENTATION: JOB ID: [id number] Quality ID # [id number]: Final reports with documentation of one or more dose reduction techniques (e.g., Au tomated exposure control, adjustment of the mA and/or kV according to patient size, use of iterative reconstruction technique) 2010 [employer]- All Rights Reserved Reading location - IP/workstation name: [email or web address]
== END ==
LOC: RAD 10:15
PROVIDERS: ATTEND Orthopaedic Surgery
DX: M25.561 Pain in right knee (principal); M25.461 Effusion, right knee; Z96.651 Presence of right artificial knee joint

== ENCOUNTER 2017-11-01 10:36 | Day surgery (SDC) | payer OTHER ==
[2017-10-25 11:02] LABS: ABSOLUTE BASOPHILS # (AUTO) 0.1 10^3/uL (0.0-0.2); ABSOLUTE EOSINOPHILS # (AUTO) 0.3 10^3/uL (0.0-0.6); ABSOLUTE LYMPHOCYTES (AUTO) 2.1 10^3/uL (0.5-4.7); ABSOLUTE MONOCYTES (AUTO) 0.5 10^3/uL (0.1-1.4); ABSOLUTE NEUT (AUTO) 4.2 10^3/uL (1.7-8.2); BASOPHILS % (AUTO) 1.5 % (0-2); EOSINOPHILS % (AUTO) 3.6 % (0-6); HEMATOCRIT 46.2 % (37.9-51.0); HEMOGLOBIN 15.5 g/dL (13.5-17.0); MEAN CORPUSCULAR HEMOGLOBIN 30.5 pg (27.0-33.4); MEAN CORPUSCULAR HGB CONC 33.7 g/dL (32.0-36.0); MEAN CORPUSCULAR VOLUME 91 fl (80-97); MONOCYTES % (AUTO) 6.6 % (3-13); PLATELET COUNT 240 10^3/uL (150-450); RED CELL DISTRIBUTION WIDTH 14.6 % (11.5-14.0); SEGMENTED NEUTROPHILS % (AUTO) 59.3 % (42-78); TOTAL CELLS COUNTED % (AUTO) 100 %; WHITE BLOOD COUNT 7.1 10^3/uL (4.0-10.5)
[2017-10-25 11:13] LABS: APPEARANCE,URINE CLEAR; BILIRUBIN,URINE NEGATIVE (NEGATIVE); COLOR,URINE YELLOW; GLUCOSE, URINE NEGATIVE (NEGATIVE); KETONES,URINE NEGATIVE (NEGATIVE); LEUKOCYTE ESTERASE,URINE NEGATIVE (NEGATIVE); NITRITE,URINE NEGATIVE (NEGATIVE); PROTEIN,URINE NEGATIVE (NEGATIVE); UROBILINOGEN,URINE NEGATIVE mg/dL (<2.0)
[2017-10-25 11:24] LABS: ANION GAP 9 (5-19); BLOOD UREA NITROGEN 7 mg/dL (7-20); CALCIUM 9.5 mg/dL (8.4-10.2); CARBON DIOXIDE 30 mmol/L (22-30); CHLORIDE 101 mmol/L (98-107); GLUCOSE 94 mg/dL (75-110); POTASSIUM 5.9 mmol/L (3.6-5.0); SODIUM 139.9 mmol/L (137-145)
--- NOTE | 2017-10-25 12:34 | EKG REPORT ---
SEVERITY:- ABNORMAL ECG - SINUS RHYTHM NONSPECIFIC INTRAVENTRICULAR CONDUCTION DELAY LEFT VENTRICULAR HYPERTROPHY : Confirmed by: Robbie Hernández MD 25-Oct-2017 12:33:52
[~2017-11-01 10:36] MED LIST changes: +CEFAZOLIN SODIUM 2 GM in DEXTROSE 5%-WATER 100 ML IV SCH; +LACTATED RINGERS 1000 ML IV PRN; +LIDOCAINE 0.5% INJ-PF (5 MG/ML) 50 ML SDV SUBCUT PRN; -LIDOCAINE 1% INJ-PF (10 MG/ML) 30 ML SDV ONE
[2017-11-01] MEDS ORDERED: MIDAZOLAM 2 MG/2 ML INJ ONE ×2 (14:02→15:14)
[2017-11-01] MEDS ORDERED: PROPOFOL INJ 200 MG/20 ML VIAL IV ONE (15:14)
[2017-11-01] MEDS ORDERED: ACETAMINOPHEN 100 ML IV ONE (15:14)
[2017-11-01] MEDS ORDERED: LIDOCAINE 2% INJ-PF (20 MG/ML) 10 ML AMPUL ONE (15:14)
[2017-11-01] MEDS ORDERED: FENTANYL CITRATE INJ/PF 100 MCG/2 ML AMPUL ONE (15:14)
[2017-11-01] MEDS ORDERED: ONDANSETRON HCL INJ/PF 4 MG/2 ML SDV ONE (15:14)
[2017-11-01] MEDS ORDERED: HYDROMORPHONE HCL INJ/PF 2 MG/ML AMPULE ONE (15:15)
[2017-11-01] MEDS ORDERED: DIPHENHYDRAMINE HCL 50 MG/ML VIAL IV PRN (15:57)
[2017-11-01] MEDS ORDERED: FENTANYL CITRATE INJ/PF 100 MCG/2 ML AMPUL IV PRN ×3 (15:57)
[2017-11-01] MEDS ORDERED: OXYCODONE-ACETAMINOPHEN 5-325 MG TABLET PO PRN ×3 (15:57→16:43)
[2017-11-01] MEDS ORDERED: MEPERIDINE HCL/PF INJ 25 MG/1 ML DISP.SYRIN IV PRN (15:57)
[2017-11-01] MEDS ORDERED: MORPHINE SULFATE 10 MG/ML INJ IV PRN ×2 (15:57→16:43)
[2017-11-01] MEDS ORDERED: ONDANSETRON HCL INJ/PF 4 MG/2 ML SDV IV PRN ×2 (15:57→16:43)
[2017-11-01] MEDS ORDERED: PROMETHAZINE HCL INJ 25 MG/1 ML VIAL IV PRN ×2 (15:57)
--- NOTE | 2017-11-01 16:45 | Discharge Summary ---
Discharge Summary (SDC) - Discharge Final Diagnosis: Status post right index finger PIP joint amputation Date of Surgery: 11/01/17 Discharge Date: 11/01/17 Condition: Good Treatment or Instructions: Schedule Follow Up w/ Dr. Pascual Ryan @ [facility] to be seen in 10-14 days or as scheduled [place]: [place]: [place]: May remove dressing on postop day #3, keep incision covered and dry. Ice and elevate May begin finger range of motion attempting to make full fist. Stool softener of choice when on pain medication. Prescriptions: Oxycodone HCl 5 mg PO Q6 PRN #35 tablet PRN Reason: Pain Scale Of 5 Referrals: ISELA DAVIS NP [Primary Care Provider] - Discharge Diet: As Tolerated Respiratory Treatments at Home: Deep Breathing/Coughing, Incentive Spirometer Discharge Activity: No Lifting Over 10 Pounds, No Lifting/Push/Pulling Report the Following to Your Physician Immediately: Fever over 101 Degrees, Unusual Bleeding, Redness, Swelling, Warmth, Increased Soreness
--- NOTE | 2017-11-01 16:48 | Operative Report ---
Operative Report PREOPERATIVE DIAGNOSIS: Chronic boutonniere deformity right index finger POSTOPERATIVE DIAGNOSIS: Same OPERATION: PIP amputation right index finger with radial and ulnar neurectomies SURGEON: HILARY PARKER ANESTHESIA: GA COMPLICATIONS: None ESTIMATED BLOOD LOSS: Minimal PROCEDURE: Indication for above procedure: 56-year-old male presented to my office with a painful stiff right index finger. According to the patient approximately 1 year ago he underwent central slip repair did not perform occupational therapy and ultimately developed extension lag. He states currently it is painful and has significant limited motion with the finger feels as though it gets in his way majority of times. We attempted conservative measures including bracing in a optimal position for arthrodesis the patient states the AlumaFoam splint and stiffness of the PIP joint still caused him significant functional limitation and he is concerned with his activities he will ultimately amputate the finger inadvertent. At that point we discussed treatment options including continued observation versus amputation. After discussing risks benefits and postoperative expectations of both patient elected to proceed with amputation. Details of the surgery were explained to the patient and the concern of possible postoperative pain despite these patient would like to proceed with amputation. Procedure In Detail: Patient was seen and evaluated in the preoperative holding area. The RIGHT upper extremity was initialized and marked. Patient received 2g of Ancef IV for bacterial prophylaxis. Patient was taken back to the operative room where transferred to the operative table and placed under general anesthesia. Once they were adequately anesthetized a nonsterile tourniquet was placed on the upper extremity. A surgical team debriefing was performed ensuring all instrumentation was available, the surgical procedure was discussed with possible concerns reviewed. The upper extremity was prepped with chlorhexidine and alcohol and draped in a sterile fashion. A timeout was done identifying correct patient, procedure and extremity everyone in attendance agree with this and verbalized no concerns. The extremity was exsanguinated the tourniquet was inflated to 250 mmHg. [place] shaped skin incision was made with longer volar flap. The extensor tendon at its repair site was transected and the collateral ligaments were released. The radial and ulnar neurovascular bundles were then identified. The digital artery was coagulated with bipolar cautery. Digital nerve was transected 1 cm proximal to the amputation site. I then completed transection of the FDP and FDS tendons. Evaluation of the joint demonstrated end-stage degenerative changes with complete loss of cartilage throughout the head of the proximal phalanx. I then completed amputation of the index finger which was sent to pathology. The condyles of the proximal phalanx were then smoothed with a rongeur down to cancellus bone. The wound was copiously irrigated with normal saline. Tourniquet deflated. Any peripheral bleeding was controlled with bipolar cautery into the wound was dry. The FDS tendon was secured to the extensor mechanism providing coverage to the proximal phalanx head. The skin was then closed with interrupted 4-0 nylon suture. The radial and ulnar edges were contoured to avoid dogears. 20 cc of 0.5% Marcaine with epinephrine was injected for postoperative pain control. Wound was dressed with Xeroform 4 x 4's and patient was placed in a soft bandage. Sponge counts, instrument counts, needle counts counts were correct. Patient was then awoken from anesthesia. Transferred from the operating room table to the operating room stretcher. There was no intraoperative complications patient tolerated procedure well stable to PACU. Postoperative plan: Patient will follow-up the office in 2 weeks for suture removal and wound check.
[2017-11-01 18:54] VITALS: BP 145/95
== END 2017-11-01 18:50 | disposition home or self-care (01) ==
LOC: OROUT 10:36
PROVIDERS: ATTEND Orthopaedic Surgery
DX: M20.021 Boutonniere deformity of right finger(s) (principal); F17.210 Nicotine dependence, cigarettes, uncomplicated; Z88.8 Allergy status to other drugs, medicaments and biological substances; Z79.899 Other long term (current) drug therapy
CPT/HCPCS: 93005; 36415 ×2; 84132; 85025; 80048; 81001; 88305 ×2; 93010; 26951; J2250; J3490 ×2; J0690; J3010; J1170; J2405; J2704; J0131; 1830

== ENCOUNTER 2018-07-03 19:13 | Inpatient (IN) | payer OTHER ==
[2018-07-03] MEDS ORDERED: NORMAL SALINE 1000 ML 1,000 ML IV ONE ×3 (19:50→21:35)
[2018-07-03] MEDS ORDERED: ONDANSETRON HCL INJ/PF 4 MG/2 ML SDV IV ONE (19:50)
--- NOTE | 2018-07-03 19:53 | ER Document Report ---
ED General - General Chief Complaint: Head Injury Stated Complaint: HEAD INJURY Time Seen by Provider: 07/03/18 19:48 Cannot obtain history due to: Unstable vital signs, Altered mental status Notes: Patient is a 57-year-old male with a past medical history of chronic pain, anxiety, hypertension, hyperlipidemia, history of left AKA, presents with family due to concerns of confusion, lethargy after having a fall last evening and striking his head on the table. The patient himself is a very poor historian, states that he does recall having a trip and fall last evening and hitting his head but does not remember much since that time. Family reports that he has been extremely lethargic, has effectively not gotten out of his recliner all day. His son came home from work and made the patient come to the emergency department given his altered mental status and continued lethargy. The patient has not taken any of his medications all day. Family also notes that he has had a cough for the last several days. TRAVEL OUTSIDE OF THE [place] IN LAST 30 DAYS: No - Related Data Allergies/Adverse Reactions: shellfish derived Allergy (Severe, Verified 11/01/17 11:15) Anaphylaxis gabapentin [From Neurontin] Adverse Reaction (Verified 11/01/17 11:15) shake, sweat cats Allergy (Unknown, Uncoded 07/04/18 00:01) Past Medical History - General Information source: Patient, Relative Cannot obtain history due to: Unstable vital signs, Altered mental status - Social History Smoking Status: Former Smoker Frequency of alcohol use: None Drug Abuse: None Lives with: Spouse/Significant other Family History: Reviewed & Not Pertinent - Past Medical History Cardiac Medical History: Denies: Hx Coronary Artery Disease, Hx Heart Attack, Hx Hypertension, Hx Pulmonary Embolism Pulmonary Medical History: Reports: Hx Pneumonia - YEARS AGO Denies: Hx Asthma, Hx Bronchitis, Hx COPD, Hx Respiratory Failure, Hx Sleep Apnea, Hx Tuberculosis Neurological Medical History: Denies: Hx Cerebrovascular Accident, Hx Seizures Malignancy Medical History: Denies Hx Lung Cancer Musculoskeletal Medical History: Reports Hx Arthritis - ARTHRITIS, Denies Hx Fibromyalgia, Denies Hx Muscular Dystrophy Traumatic Medical History: Denies: Hx Fractures Past Surgical History: Reports: Hx Appendectomy, Hx Tonsillectomy. Denies: Hx Bowel Surgery, Hx Cholecystectomy, Hx Coronary Artery Bypass Graft, Hx Gastric Bypass Surgery, Hx Herniorrhaphy, Hx Pacemaker - Immunizations Hx Diphtheria, Pertussis, Tetanus Vaccination: Yes Hx Pneumococcal Vaccination: 03/20/15 Review of Systems - Review of Systems -: Yes ROS unobtainable due to patient's medical condition Physical Exam - Vital signs Vitals: Temp Pulse Resp BP Pulse Ox 98.2 F 98 16 77/61 L 92 07/03/18 19:19 07/03/18 19:19 07/03/18 19:19 07/03/18 19:19 07/03/18 19:19 Interpretation: Hypotensive Notes: PHYSICAL EXAMINATION: GENERAL: Ill in appearance, somewhat lethargic HEAD: Atraumatic, normocephalic. EYES: Pupils equal round and reactive to light, extraocular movements intact, sclera anicteric, conjunctiva are normal. ENT: nares patent, no oral pharyngeal trauma. No hemotympanum, no Willett's sign, no raccoon eyes. NECK: No midline cervical spine tenderness. Patient able to move their head to 45 bilaterally without any discomfort. LUNGS: Breath sounds clear to auscultation bilaterally and equal. No wheezes rales or rhonchi. HEART: Regular rate and rhythm without murmurs. CHEST WALL: No ecchymosis over the chest wall. ABDOMEN: Soft, nontender, normoactive bowel sounds. No guarding, no rebound. No abdominal bruising EXTREMITIES: Left AKA present. No other notable extremity findings. BACK: No midline spinal tenderness, step-offs, or deformities. NEUROLOGICAL: Face symmetric. Tongue protrudes midline. Extraocular motions intact. Pupils are 2 mm and equally reactive. Slowed speech, gait deferred. 5 out of 5 strength both distally and proximally in the bilateral upper extremities. 5 out of 5 strength as able to test with prosthesis included bilateral and lower extremities. PSYCH: Somewhat lethargic, slow to answer questions, disoriented SKIN: Cool, pale skin Course - Re-evaluation Re-evalutation: 07/03/18 19:51 Patient presents somewhat altered after apparently falling last night and striking his head after tripping over a rug. The patient was noted to be hypotensive at time of presentation although is normally hypertensive. Has not gotten out of bed, ate or drank all day. Has apparently passed out multiple times throughout the day today. The patient is globally confused, uncertain of his details of medical history or the last 12 hours. He is initially having a blood pressure of 77 and 58. He looks pale, somewhat lethargic. Denies any symptoms of than feeling lightheaded and having headache. He does not take any form of anti-coagulation. He will me to go for CT of the head and cervical spine to rule out any acute intracranial bleed. Will obtain blood work, I have started IV fluid resuscitation, will continue to reassess at regular intervals. Patient is in guarded condition secondary to hypotension and altered mental status. 07/03/18 20:[address] of the head does not demonstrate any evidence of cranial bleed. Patient's blood pressure is gradually improving to the low 100 systolic after receiving 1 L of fluid. He is receiving a second liter of fluid at this point. Labs are pending. Will continue to reassess at regular intervals. 07/03/18 21:37 Patient's laboratories do show acute renal failure, GFR down to 22 from a normal level less than 1 year ago. This likely accounts for the patient's profound hypotension and episodes of syncope. CT the head and cervical spine have been formally read as being normal. Patient remains without any focal neurologic deficits although remains somewhat lethargic and falls asleep readily. I discussed this case with the hospitalist who has accepted the patient for admission. 07/04/18 03:43 Chest x-ray that have been obtained earlier did show a right apical pneumonia. A dose of levofloxacin has been ordered. I did communicate this finding to the hospitalist service. - Vital Signs Vital signs: Temp Pulse Resp BP Pulse Ox 98.9 F 77 24 H 124/66 76 L 07/03/18 20:26 07/04/18 00:00 07/04/18 02:31 07/04/18 02:15 07/04/18 02:31 - Laboratory Result Diagrams: 07/03/18 19:43 07/03/18 19:43 Laboratory results interpreted by me: 07/03/18 07/03/18 19:43 19:54 Sodium 126.7 L Chloride 92 L BUN 36 H Creatinine 3.05 H Est GFR ( Amer) 26 L Est GFR (Non-Af Amer) 21 L Glucose 111 H POC Glucose 112 H - Diagnostic Test Radiology reviewed: Image reviewed, Reports reviewed Radiology results interpreted by me: 07/03/18 21:37 CT head: No acute intracranial bleed or mass - EKG Interpretation by Me Additional EKG results interpreted by me: 07/04/18 03:44 Sinus rhythm, rate 89. Movement interference. No ST elevations or depressions. QTC is 173. Critical Care Note - Critical Care Note Total time excluding time spent on procedures (mins): 55 Comments: Critical care time spent obtaining history from patient or surrogate, discuss ions with consultants, development of treatment plan with patient or surrogate, evaluation of patient's response to treatment, examination of patient, ordering and performing treatments and interventions, ordering and review of laboratory studies, re-evaluation of patient's condition, ordering and review of radiographic studies and review of old charts Discharge - Discharge Clinical Impression: Recurrent syncope Acute renal failure Qualifiers: Acute renal failure type: unspecified Qualified Code(s): N17.9 - Acute kidney failure, unspecified Head trauma Qualifiers: Encounter type: initial encounter Qualified Code(s): S09.90XA - Unspecified injury of head, initial encounter Concussion Qualifiers: Encounter type: initial encounter Loss of consciousness presence/duration: with LOC of unspecified duration Qualified Code(s): S06.0X9A - Concussion with loss of consciousness of unspecified duration, initial encounter Condition: Fair Disposition: ADMITTED INPATIENT Admitting Provider: Hospitalist Unit Admitted: [facility]
[2018-07-03 19:58] LABS: ABSOLUTE BASOPHILS # (AUTO) 0.1 10^3/uL (0.0-0.2); ABSOLUTE EOSINOPHILS # (AUTO) 0.2 10^3/uL (0.0-0.6); ABSOLUTE LYMPHOCYTES (AUTO) 1.6 10^3/uL (0.5-4.7); ABSOLUTE MONOCYTES (AUTO) 0.6 10^3/uL (0.1-1.4); ABSOLUTE NEUT (AUTO) 7.9 10^3/uL (1.7-8.2); BASOPHILS % (AUTO) 0.7 % (0-2); EOSINOPHILS % (AUTO) 1.6 % (0-6); HEMATOCRIT 39.6 % (37.9-51.0); HEMOGLOBIN 13.5 g/dL (13.5-17.0); LYMPHOCYTES % (AUTO) 15.4 % (13-45); MEAN CORPUSCULAR HEMOGLOBIN 30.3 pg (27.0-33.4); MEAN CORPUSCULAR HGB CONC 34.1 g/dL (32.0-36.0); MEAN CORPUSCULAR VOLUME 89 fl (80-97); MONOCYTES % (AUTO) 5.6 % (3-13); PLATELET COUNT 244 10^3/uL (150-450); RED BLOOD COUNT 4.46 10^6/uL (4.35-5.55); RED CELL DISTRIBUTION WIDTH 13.6 % (11.5-14.0); SEGMENTED NEUTROPHILS % (AUTO) 76.7 % (42-78); TOTAL CELLS COUNTED % (AUTO) 100 %; WHITE BLOOD COUNT 10.3 10^3/uL (4.0-10.5)
[2018-07-03 20:03] LABS: PROTHROMBIN TIME 13.7 SEC (11.4-15.4)
[2018-07-03 20:04] LABS: PARTIAL THROMBOPLASTIN TIME 34.7 SEC (23.5-35.8)
[2018-07-03 20:15] LABS: ANION GAP 10 (5-19); BLOOD UREA NITROGEN 36 mg/dL (7-20); CARBON DIOXIDE 25 mmol/L (22-30); CHLORIDE 92 mmol/L (98-107); GLUCOSE 111 mg/dL (75-110); POTASSIUM 4.7 mmol/L (3.6-5.0); SODIUM 126.7 mmol/L (137-145)
--- NOTE | 2018-07-03 20:39 | RADIOLOGY REPORT (SQ) ---
EXAM DESCRIPTION: CT HEAD WITHOUT IV CONTRAST COMPLETED DATE/TME: 07/03/2018 19:49 CLINICAL HISTORY: 57 years, Male, head trauma, ams This exam was performed according to our departmental dose-optimization program which includes automated exposure control, adjustment of the mA and/or kVp according to patient size and/or use of iterative reconstruction technique where applicable. FINDINGS: No acute intracranial hemorrhage, mass effect or midline shift. No extra-axial fluid collections. Ventricles and subarachnoid spaces are preserved preserved. Delgado-white matter differentiation is preserved. Visualized paranasal sinuses and the mastoid air cells are clear. The skull is intact. IMPRESSION: No acute intracranial hemorrhage.
--- NOTE | 2018-07-03 20:40 | RADIOLOGY REPORT (SQ) ---
EXAM DESCRIPTION: CT CERVICAL SPINE WITHOUT IV CONTRAST COMPLETED DATE/TME: 07/03/2018 19:49 CLINICAL HISTORY: 57 years, Male, head trauma, ams This exam was performed according to our departmental dose-optimization program which includes automated exposure control, adjustment of the mA and/or kVp according to patient size and/or use of iterative reconstruction technique where applicable. FINDINGS: Vertebral body heights are intact. Severe degenerative changes at C4-5 and C5-C6 with minimal grade 1 retrolisthesis of C4 versus C3 and C5 versus C4. Anterior cervical spine fusion hardware in place at C6-7. Facets are normally aligned. No evidence for acute fracture. The odontoid process is intact. IMPRESSION: No acute fracture. Severe degenerative changes. Postsurgical changes.
--- NOTE | 2018-07-03 22:22 | RADIOLOGY REPORT (SQ) ---
EXAM DESCRIPTION: XR CHEST 1 VIEW COMPLETED DATE/TME: 07/03/2018 21:36 CLINICAL HISTORY: 57 years, Male, cough COMPARISON: None. NUMBER OF VIEWS: TECHNIQUE: LIMITATIONS: None. FINDINGS: There is vague infiltrate in the right lung apex, compatible with pneumonia. There is possible emphysema. The heart is normal in size. No evidence of heart failure. No evidence of pneumothorax or pleural effusion. IMPRESSION: Right apical pneumonia. Possible emphysema. copyright 2010 [employer]- All Rights Reserved
[2018-07-03] MEDS ORDERED: MAG HYDROX/AL HYDROX/SIMETH SUSP 30 ML UDCUP PO PRN (22:44)
[2018-07-03] MEDS ORDERED: ONDANSETRON 4 MG TAB.RAPDIS PO PRN (22:44)
[2018-07-03] MEDS ORDERED: MAGNESIUM HYDROXIDE SUSP 30 ML UDCUP PO PRN (22:44)
[2018-07-03] MEDS ORDERED: ONDANSETRON HCL INJ/PF 4 MG/2 ML SDV IV PRN (22:44)
[2018-07-03 22:51] LABS: APPEARANCE,URINE SLIGHTLY-CLOUDY; BILIRUBIN,URINE NEGATIVE (NEGATIVE); COLOR,URINE YELLOW; GLUCOSE, URINE NEGATIVE (NEGATIVE); KETONES,URINE NEGATIVE (NEGATIVE); LEUKOCYTE ESTERASE,URINE NEGATIVE (NEGATIVE); NITRITE,URINE NEGATIVE (NEGATIVE); PROTEIN,URINE NEGATIVE (NEGATIVE); URINE SPECIFIC GRAVITY 1.012; UROBILINOGEN,URINE NEGATIVE mg/dL (<2.0)
[2018-07-03] MEDS ORDERED: ACETAMINOPHEN 650 MG SUPP.RECT PR PRN (22:52)
[2018-07-03] MEDS ORDERED: ALBUTEROL SULFATE 0.083% NEB 2.5 MG/3 ML AMPUL NEB PRN (22:52)
[2018-07-03] MEDS ORDERED: NALBUPHINE HCL INJ 10 MG/1 ML AMPULE IV PRN (22:52)
[2018-07-03] MEDS ORDERED: HEPARIN SOD (PORCINE) 5,000 UNIT/ML 1 ML SYRINGE SUBCUT ONE (23:15)
[2018-07-03 23:26] LABS: URINE AMPHETAMINES SCREEN NEGATIVE; URINE BARBITURATES SCREEN NEGATIVE; URINE BENZODIAZEPINES SCREEN UNCONFIRMED POSITIVE; URINE COCAINE SCREEN NEGATIVE; URINE MARIJUANA (THC) SCREEN NEGATIVE; URINE METHADONE SCREEN NEGATIVE; URINE PHENCYCLIDINE SCREEN NEGATIVE
[2018-07-03] MEDS: NORMAL SALINE 1000 ML 1,000 ML IV PRN (23:55)
--- NOTE | 2018-07-04 00:11 | EKG REPORT ---
SEVERITY:- ABNORMAL ECG - SINUS RHYTHM NONSPECIFIC INTRAVENTRICULAR CONDUCTION DELAY ABNRM R PROG, CONSIDER ASMI OR LEAD PLACEMENT : Confirmed by: Marian Correa 04-Jul-2018 00:10:38
[2018-07-04] MEDS ORDERED: MORPHINE SULFATE 10 MG/ML INJ IV PRN (00:43)
[2018-07-04] MEDS: MORPHINE SULFATE 10 MG/ML INJ IV PRN ×3 (01:10→23:59)
[2018-07-04 02:25] LABS: TROPONIN I < 0.012 ng/mL
--- NOTE | 2018-07-04 02:27 | PDOC H&P ---
History of Present Illness Admission Date/PCP: 07/03/18 22:10 ISELA DAVIS NP Patient complains of: Altered mental status History of Present Illness: MILAGROS FAIRBANKS JR is a 57 year old male who presented to the emergency room with a history of mechanical (trip and fall) fall in his home on the night prior to admission. Patient admits that the fall resulted in him striking his head and becoming unconscious for an unknown period of time. His noted that he was arousable but not very active per his normal self this morning when she found him in his recliner chair where he usually sleeps. She had to assist him in getting dressed as he was supposed to take a friend to the doctor, however after she left for work he evidently returned to his chair and went back to sleep. 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 He again was arousable and appeared to be oriented and thinking clearly but continued to be somnolent when not fully engaged. He was subsequently brought to the emergency room for further evaluation and treatment. In the emergency room he was found to have no acute skull fracture, brain injury, evidence for an intracranial bleed and no evidence for acute injury or fracture of the cervical spine. He was noted to be hypotensive transiently in the ER but his hypotension responded dramatically to IV fluid therapy. He was also found to have a creatinine greater than 3 with a BUN in the 30s. This is substantially different than laboratory test performed less than one year ago. With these findings it was felt that the patient should be admitted to the hospital for further evaluation and treatment. Past Medical History Cardiac Medical History: Reports: Hypertension Denies: Coronary Artery Disease, Myocardial Infarction, Pulmonary Embolism Pulmonary Medical History: Reports: Pneumonia - YEARS AGO Denies: Asthma, Bronchitis, Chronic Obstructive Pulmonary Disease (COPD), Respiratory Failure, Sleep Apnea, Tuberculosis EENT Medical History: Reports: None Neurological Medical History: Denies: Hemorrhagic CVA, Ischemic CVA, Seizures Renal/ Medical History: Denies: Chronic Kidney Disease, Nephrolithiasis Malignancy Medical History: Reports: None GI Medical History: Denies: Cirrhosis, Hepatitis Musculoskeltal Medical History: Reports: Arthritis - ARTHRITIS Denies: Fibromyalgia, Gout Skin Medical History: Denies: Eczema, Psoriasis Psychiatric Medical History: Reports: Tobacco Dependency Denies: Alcohol Dependency, Substance Abuse Traumatic Medical History: Reports: None Hematology: Reports: Anemia - BLOOD TRANSFUSION 2015 - x 4 UNITS Denies: Bleeding Tendencies Infectious History Note: 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 Past Surgical History Past Surgical History: Reports: Appendectomy, Knee Replacement, Orthopedic Surgery - Total of at least 15 surgeries on his left knee before the AKA, Tonsillectomy Social History Information Source: Patient Lives with: Spouse/Significant other Smoking Status: Current Every Day Smoker Frequency of Alcohol Use: Rare Hx Recreational Drug Use: No Drugs: None Hx Prescription Drug Abuse: No - Advance Directive Resuscitation Status: Full Code Surrogate healthcare decision maker:: Family History Family History: COPD, DM, Other - Heart disease Parental Family History Reviewed: Yes Children Family History Reviewed: No Sibling(s) Family History Reviewed.: Yes Medication/Allergy Home Medications: Oxycodone HCl/Acetaminophen [Percocet 10-325 mg Tablet] 2 each PO QID 08/28/15 Pregabalin [Lyrica 100 mg Capsule] 150 mg PO QID 08/28/15 Alprazolam [Xanax 0.5 mg Tablet] 0.5 mg PO BID 10/13/16 Hydroxyzine HCl 100 mg PO BID 10/13/16 Mirtazapine [Remeron] 30 mg PO QPM PRN 10/13/16 Morphine Sulfate/Naltrexone [Embeda ER 50-2 mg Capsule] 1 each PO BID 10/19/16 Testosterone Cypionate [Depo-Testosterone] 1.5 ml IM ASDIR 05/23/17 Oxycodone HCl 5 mg PO Q6 PRN #35 tablet 11/01/17 Allergies/Adverse Reactions: shellfish derived Allergy (Severe, Verified 11/01/17 11:15) Anaphylaxis gabapentin [From Neurontin] Adverse Reaction (Verified 11/01/17 11:15) shake, sweat cats Allergy (Unknown, Uncoded 07/04/18 00:01) Review of Systems Constitutional: ABSENT: chills, fever(s) Eyes: ABSENT: visual disturbances, other - Ocular pain Ears: ABSENT: hearing changes, other - Ear pain Nose, Mouth, and Throat: ABSENT: mouth pain, sore throat Cardiovascular: ABSENT: chest pain, dyspnea on exertion, palpitations Respiratory: ABSENT: cough, dyspnea Gastrointestinal: ABSENT: abdominal pain, constipation, diarrhea, nausea, vomiting Genitourinary: ABSENT: dysuria, hematuria Musculoskeletal: PRESENT: back pain - Chronic, other - Status post [id number] amputation of the left lower extremity Integumentary: ABSENT: pruritus, rash Neurological: PRESENT: other - Somnolence as detailed in the history of present illness. ABSENT: confusion, convulsions, memory loss Psychiatric: ABSENT: anxiety, depression Hematologic/Lymphatic: ABSENT: easy bleeding, easy bruising Physical Exam Vital Signs: Temp Pulse Resp BP Pulse Ox 98.9 F 78 19 105/64 100 07/03/18 20:26 07/03/18 19:58 07/03/18 22:02 07/03/18 22:02 07/03/18 22:02 Intake & Output 07/01/18 07/02/18 07/03/18 23:59 23:59 23:59 Intake Total 1000 Balance 1000 Weight 106.594 kg General appearance: PRESENT: no acute distress - Resting/sleeping but easily arousable, obese Head exam: PRESENT: normocephalic. ABSENT: atraumatic - Questionable area of edema in the left occipital region possibly the site of head contact with a hard surface. Eye exam: PRESENT: conjunctiva pink, EOMI. ABSENT: scleral icterus Ear exam: PRESENT: normal external ear exam. ABSENT: bleeding, drainage Mouth exam: PRESENT: dry mucosa, neck supple Neck exam: ABSENT: thyromegaly, tracheal deviation Respiratory exam: PRESENT: clear to auscultation harrison, symmetrical, unlabored Cardiovascular exam: PRESENT: RRR. ABSENT: clicks, gallop, rubs Pulses: PRESENT: normal radial pulses, normal dorsalis pedis pul Vascular exam: PRESENT: normal capillary refill. ABSENT: pallor GI/Abdominal exam: PRESENT: normal bowel sounds, soft Rectal exam: PRESENT: deferred Extremities exam: ABSENT: joint swelling, tenderness Musculoskeletal exam: PRESENT: other - Status post left AKA. ABSENT: deformity, dislocation Neurological exam: PRESENT: altered - Patient is somnolent but can be aroused with verbal or light tactile stimuli, oriented to person, oriented to place, oriented to time, oriented to situation, CN II-XII grossly intact. ABSENT: motor sensory deficit Psychiatric exam: PRESENT: appropriate affect, normal mood Skin exam: PRESENT: dry, intact, warm. ABSENT: jaundice, rash, urticaria Results Laboratory Results: 07/03/18:43 07/03/18 19:43 07/03/18 07/03/18 07/03/18 19:43 19:43 22:19 WBC 10.3 RBC 4.46 Hgb 13.5 Hct 39.6 MCV 89 MCH 30.3 MCHC 34.1 RDW 13.6 Plt Count 244 Seg Neutrophils % 76.7 Lymphocytes % 15.4 Monocytes % 5.6 Eosinophils % 1.6 Basophils % 0.7 Absolute Neutrophils 7.9 Absolute Lymphocytes 1.6 Absolute Monocytes 0.6 Absolute Eosinophils 0.2 Absolute Basophils 0.1 Sodium 126.7 L Potassium 4.7 Chloride 92 L Carbon Dioxide 25 Anion Gap 10 BUN 36 H Creatinine 3.05 H Est GFR ( Amer) 26 L Est GFR (Non-Af Amer) 21 L Glucose 111 H Calcium 9.0 Urine Color YELLOW Urine Appearance SLIGHTLY-CLOUDY Urine pH 5.0 Ur Specific [place] 1.012 Urine Protein NEGATIVE Urine Glucose (UA) NEGATIVE Urine Ketones NEGATIVE Urine Blood SMALL H Urine Nitrite NEGATIVE Ur Leukocyte Esterase NEGATIVE Urine WBC (Auto) 1 Urine RBC (Auto) 1 07/03/18 19:43 Troponin I < 0.012 Impressions: Cervical Spine CT 07/03/18 19:49 IMPRESSION: No acute fracture. Severe degenerative changes. Postsurgical changes. Head CT 07/03/18 19:49 IMPRESSION: No acute intracranial hemorrhage. Chest X-Ray 07/03/18 21:36 IMPRESSION: Right apical pneumonia. Possible emphysema. copyright 2010 [email or web address]- All Rights Reserved Assessment & Plan - Diagnosis (1) Hypotension due to hypovolemia Is this a current diagnosis for this admission?: Yes Plan: Patient has significant hypotension that has responded well to volume expansion. Be continued on IV fluids 250 mL/h utilizing normal saline. Ongoing reassessment of his volume status as well as his metabolic status will be done utilizing serial metabolic profiles on a daily basis. (2) Postconcussion syndrome Is this a current diagnosis for this admission?: Yes Plan: Patient is admitted for evaluation of his postconcussion syndrome. Neuro checks will be performed every 4 hours. (3) Chronic pain due to injury Is this a current diagnosis for this admission?: Yes Plan: Patient will be continued on his chronic pain regimen as prescribed and he is alert and able to maintain normal weakness and activity on a sustained basis. In the interim a sliding scale intravenous morphine sulfate 3-7.5 mg every 2 hours will be used for pain control. (4) Chronic renal insufficiency, stage IV (severe) Is this a current diagnosis for this admission?: Yes Plan: Patient has probable chronic renal insufficiency based on some renal insult or medications causing renal insufficiency. He was noted to be taking Celebrex 400 mg p.o. daily twice the recommended daily maximum dose for ongoing therapy and he was also on injectable testosterone. These medications will be discontinued. A renal consult may be needed to evaluate further, however a course of hydration in the absence of iatrogenic renal insults may resulted in significant improvement of his kidney function. (5) Tobacco use disorder, severe, dependence Is this a current diagnosis for this admission?: Yes Plan: Patient is advised to discontinue smoking. Cessation counseling was not offered at this time due to the patient's inattention and return to sleep. A nicotine r eplacement patch will be available as needed. - Time Time Spent: 50 to 70 Minutes Critical Time spent with patient: Less than 15 minutes Smoking Cessation Education: 3 to 10 minutes Medications reviewed and adjusted accordingly: Yes Anticipated discharge: Home - Inpatient Certification Based on my medical assessment, after consideration of the patient's comorbidities, presenting symptoms, or acuity I expect that the services needed warrant INPATIENT care.: Yes I certify that my determination is in accordance with my understanding of Medicare's requirements for reasonable and necessary INPATIENT services [42 CFR 412.3e].: Yes Medical Necessity: Need Close Monitoring Due to Risk of Patient Decompensation, Need For IV Fluids, Need For Continuous Telemetry Monitoring, Need for Neurological Checks, Risk of Complication if Not Cared For in Hospital
[2018-07-04] MEDS ORDERED: LEVOFLOXACIN 750 MG/D5W RTU 750 MG/150 ML RTUPB IV ONE (04:00)
[2018-07-04] MEDS: HEPARIN SOD (PORCINE) 5,000 UNIT/ML 1 ML SYRINGE SUBCUT SCH ×3 (06:24→21:19)
[2018-07-04] MEDS: LANSOPRAZOLE 30 MG TAB.RAP.DR PO SCH (06:25)
[2018-07-04 07:54] LABS: ANION GAP 5 (5-19); BLOOD UREA NITROGEN 26 mg/dL (7-20); CALCIUM 8.3 mg/dL (8.4-10.2); CARBON DIOXIDE 24 mmol/L (22-30); CHLORIDE 103 mmol/L (98-107); CREATINE KINASE 505 U/L (55-170); GLUCOSE 90 mg/dL (75-110); POTASSIUM 5.2 mmol/L (3.6-5.0); SODIUM 132.1 mmol/L (137-145); TRIGLYCERIDES 105 mg/dL (<150)
[2018-07-04 08:06] LABS: CREATINE KINASE MB 9.52 ng/mL (<4.55); DIRECT LDL 74 mg/dL (<100)
[2018-07-04] MEDS: IPRATROPIUM BROMIDE 0.02% NEB 0.5 MG/2.5 ML AMPUL NEB SCH ×3 (08:07→23:48)
[2018-07-04] MEDS: ACETYLCYSTEINE 20% SOLN 800 MG/4 ML VIAL.NEB NEB SCH ×2 (08:08→20:48)
[2018-07-04] MEDS: BUDESONIDE NEB 0.5 MG/2 ML AMPUL NEB SCH ×2 (08:09→20:48)
[2018-07-04] MEDS: LEVALBUTEROL HCL NEB 1.25 MG/3 ML AMPUL NEB SCH ×3 (08:09→23:48)
[2018-07-04 08:11] LABS: FREE T3 4.15 pg/mL (2.77-5.27); FREE T4 (FREE THYROXINE) 1.32 ng/dL (0.78-2.19)
[2018-07-04 08:25] LABS: THYROID STIMULATING HORMONE 1.07 uIU/mL (0.47-4.68)
[2018-07-04 08:28] LABS: TROPONIN I < 0.012 ng/mL
[2018-07-04] MEDS: DOCUSATE SODIUM 100 MG CAPSULE PO SCH ×2 (11:03→17:11)
[2018-07-04] MEDS: ACETAMINOPHEN 325 MG TABLET PO PRN ×2 (14:04→21:20)
[2018-07-04] MEDS: NORMAL SALINE 1000 ML 1,000 ML IV PRN ×2 (14:04→19:00)
[2018-07-04 14:37] LABS: TROPONIN I < 0.012 ng/mL
--- NOTE | 2018-07-04 18:01 | PDOC PROGRESS REPORT ---
Subjective Progress Note for:: 07/04/18 Subjective:: This is a 57 years old male patient brought to ER after he involved in mechanical fall and injured his head. His imaging studies are negative for skull fracture or intracranial hemorrhage. Patient is left BKA. He is his prosthetic leg for ambulation. At ER patient also developed hypotension which is corrected with bolus of fluids. His chest x-ray reported as there is some vague infiltrate in the right lung apex, compatible with pneumonia. Patient has been getting Levaquin. Reason For Visit: CONCUSSION, HYPOTENSION, RENAL FAILURE Physical Exam Vital Signs: Temp Pulse Resp BP Pulse Ox 98.9 F 96 15 133/74 H 96 07/03/18 23:44 07/04/18 14:00 07/04/18 11:32 07/04/18 11:32 07/04/18 11:32 Intake & Output 07/03/18 07/04/18 07/05/18 06:59 06:59 06:59 Intake Total 3150 Output Total 1660 1450 Balance 1490 -1450 Weight 127.2 kg General appearance: PRESENT: no acute distress Head exam: PRESENT: atraumatic Eye exam: PRESENT: conjunctiva pink Neck exam: ABSENT: carotid bruit, JVD, lymphadenopathy, thyromegaly Respiratory exam: PRESENT: clear to auscultation harrison, crackles. ABSENT: rales, rhonchi, wheezes Cardiovascular exam: PRESENT: RRR. ABSENT: diastolic murmur, rubs, systolic murmur GI/Abdominal exam: PRESENT: normal bowel sounds, soft. ABSENT: distended, guarding, mass, organolmegaly, rebound, tenderness Neurological exam: PRESENT: alert, awake Results Laboratory Results: 07/04/18 07:26 07/04/18 07:26 07/03/18 07/03/18 07/03/18 19:43 19:43 22:19 WBC 10.3 RBC 4.46 Hgb 13.5 Hct 39.6 MCV 89 MCH 30.3 MCHC 34.1 RDW 13.6 Plt Count 244 Seg Neutrophils % 76.7 Lymphocytes % 15.4 Monocytes % 5.6 Eosinophils % 1.6 Basophils % 0.7 Absolute Neutrophils 7.9 Absolute Lymphocytes 1.6 Absolute Monocytes 0.6 Absolute Eosinophils 0.2 Absolute Basophils 0.1 Sodium 126.7 L Potassium 4.7 Chloride 92 L Carbon Dioxide 25 Anion Gap 10 BUN 36 H Creatinine 3.05 H Est GFR ( Amer) 26 L Est GFR (Non-Af Amer) 21 L Glucose 111 H Calcium 9.0 Magnesium Triglycerides Cholesterol LDL Cholesterol Direct VLDL Cholesterol HDL Cholesterol TSH Free T4 Free T3 pg/mL Urine Color YELLOW Urine Appearance SLIGHTLY-CLOUDY Urine pH 5.0 Ur Specific Gaines 1.012 Urine Protein NEGATIVE Urine Glucose (UA) NEGATIVE Urine Ketones NEGATIVE Urine Blood SMALL H Urine Nitrite NEGATIVE Ur Leukocyte Esterase NEGATIVE Urine WBC (Auto) 1 Urine RBC (Auto) 1 07/04/18 07/04/18 07/04/18 07:26 07:26 07:26 WBC Cancelled RBC Cancelled Hgb Cancelled Hct Cancelled MCV Cancelled MCH Cancelled MCHC Cancelled RDW Cancelled Plt Count Cancelled Seg Neutrophils % Lymphocytes % Monocytes % Eosinophils % Basophils % Absolute Neutrophils Absolute Lymphocytes Absolute Monocytes Absolute Eosinophils Absolute Basophils Sodium 132.1 L Potassium 5.2 H Chloride 103 Carbon Dioxide 24 Anion Gap 5 BUN 26 H Creatinine 1.56 H Est GFR ( Amer) 56 L Est GFR (Non-Af Amer) 46 L Glucose 90 Calcium 8.3 L Magnesium 2.2 Triglycerides 105 Cholesterol 126.60 LDL Cholesterol Direct 74 VLDL Cholesterol 21.0 HDL Cholesterol 40 TSH 1.07 Free T4 1.32 Free T3 pg/mL 4.15 Urine Color Urine Appearance Urine pH Ur Specific Gaines Urine Protein Urine Glucose (UA) Urine Ketones Urine Blood Urine Nitrite Ur Leukocyte Esterase Urine WBC (Auto) Urine RBC (Auto) 07/03/18 07/04/18 07/04/18 19:43 01:40 01:40 Creatine Kinase 770 H CK-MB (CK-2) 12.80 H Troponin I < 0.012 < 0.012 07/04/18 07/04/18 07/04/18 07:26 07:26 13:51 Creatine Kinase 505 H 2257 H CK-MB (CK-2) 9.52 H Troponin I < 0.012 07/04/18 13:51 Creatine Kinase CK-MB (CK-2) 19.70 H Troponin I < 0.012 Impressions: Cervical Spine CT 07/03/18 19:49 IMPRESSION: No acute fracture. Severe degenerative changes. Postsurgical changes. Head CT 07/03/18 19:49 IMPRESSION: No acute intracranial hemorrhage. Chest X-Ray 07/03/18 21:36 IMPRESSION: Right apical pneumonia. Possible emphysema. copyright 2010 [employer]- All Rights Reserved Assessment & Plan - Diagnosis (1) Altered mental status Qualifiers: Altered mental status type: disorientation Qualified Code(s): R41.0 - Disorientation, unspecified Is this a current diagnosis for this admission?: Yes Plan: Encephalopathy due to pneumonia complicated by head injury. (2) Right apical pneumonia Is this a current diagnosis for this admission?: Yes Plan: Continue Levaquin. (3) Acute kidney injury Is this a current diagnosis for this admission?: Yes Plan: Cautious hydration and avoiding nephrotoxic agents. (4) Status post fall Is this a current diagnosis for this admission?: Yes Plan: Fall precaution
[2018-07-04] MEDS ORDERED: LEVOFLOXACIN 250 MG TABLET PO SCH (22:00)
[2018-07-04] MEDS ORDERED: LEVOFLOXACIN 750 MG TABLET PO SCH (22:00)
[2018-07-05] MEDS: NORMAL SALINE 1000 ML 1,000 ML IV PRN (03:00)
[2018-07-05] MEDS: LANSOPRAZOLE 30 MG TAB.RAP.DR PO SCH (05:48)
[2018-07-05] MEDS: HEPARIN SOD (PORCINE) 5,000 UNIT/ML 1 ML SYRINGE SUBCUT SCH (05:50)
[2018-07-05 06:23] LABS: HEMATOCRIT 36.4 % (37.9-51.0); HEMOGLOBIN 12.5 g/dL (13.5-17.0); MEAN CORPUSCULAR HGB CONC 34.2 g/dL (32.0-36.0); MEAN CORPUSCULAR VOLUME 88 fl (80-97); PLATELET COUNT 217 10^3/uL (150-450); RED BLOOD COUNT 4.15 10^6/uL (4.35-5.55); RED CELL DISTRIBUTION WIDTH 13.4 % (11.5-14.0); WHITE BLOOD COUNT 11.2 10^3/uL (4.0-10.5)
[2018-07-05 06:34] LABS: ANION GAP 5 (5-19); BLOOD UREA NITROGEN 14 mg/dL (7-20); CALCIUM 8.9 mg/dL (8.4-10.2); CARBON DIOXIDE 24 mmol/L (22-30); CHLORIDE 106 mmol/L (98-107); GLUCOSE 110 mg/dL (75-110); SODIUM 134.7 mmol/L (137-145)
[2018-07-05 06:37] LABS: POTASSIUM 5.2 mmol/L (3.6-5.0)
[2018-07-05] MEDS: MORPHINE SULFATE 10 MG/ML INJ IV PRN (07:38)
[2018-07-05] MEDS: IPRATROPIUM BROMIDE 0.02% NEB 0.5 MG/2.5 ML AMPUL NEB SCH (08:46)
[2018-07-05] MEDS: BUDESONIDE NEB 0.5 MG/2 ML AMPUL NEB SCH (08:47)
[2018-07-05] MEDS: ACETYLCYSTEINE 20% SOLN 800 MG/4 ML VIAL.NEB NEB SCH (08:47)
[2018-07-05] MEDS: LEVALBUTEROL HCL NEB 1.25 MG/3 ML AMPUL NEB SCH (08:47)
--- NOTE | 2018-07-05 11:01 | PDOC DISCHARGE SUMMARY ---
General - Admit/Disc Date/PCP Admission Date/Primary Care Provider: 07/03/18 22:10 ISELA DAVIS NP Discharge Date: 07/05/18 - Discharge Diagnosis (1) Altered mental status Is this a current diagnosis for this admission?: Yes (2) Right apical pneumonia Is this a current diagnosis for this admission?: Yes (3) Acute kidney injury Is this a current diagnosis for this admission?: Yes (4) Status post fall Is this a current diagnosis for this admission?: Yes (5) Hyperkalemia Is this a current diagnosis for this admission?: Yes - Additional Information Resuscitation Status: Full Code Home Medications: Alprazolam [Xanax 0.5 mg Tablet] 0.5 mg PO BID 07/04/18 Celecoxib [Celebrex 200 mg Capsule] 200 mg PO BID 07/04/18 Hydroxyzine HCl [Atarax 50 mg Tablet] 100 mg PO BID 07/04/18 Mirtazapine [Remeron] 30 mg PO QHS 07/04/18 Morphine Sulfate/Naltrexone [Embeda ER 50-2 mg Capsule] 1 cap PO BID 07/04/18 Oxycodone HCl/Acetaminophen [Percocet 10-325 mg Tablet] 2 tab PO Q6HP PRN 07/04/18 Pregabalin [Lyrica 100 mg Capsule] 100 mg PO QID 07/04/18 Testosterone Cypionate [Depo-Testosterone] 1 ml IM MO@1000 07/04/18 History of Present Illness History of Present Illness: MILAGROS FAIRBANKS JR is a 57 year old male who presented to the emergency room with a history of mechanical (trip and fall) fall in his home on the night prior to admission. Patient admits that the fall resulted in him striking his head and becoming unconscious for an unknown period of time. His noted that he was arousable but not very active per his normal self this morning when she found him in his recliner chair where he usually sleeps. She had to assist him in getting dressed as he was supposed to take a friend to the doctor, however after she left for work he evidently returned to his chair and went back to sleep. He did not parts picker his friend and he was found sleeping in his chair when his arrived home in the evening. He again was arousable and appeared to be oriented and thinking clearly but continued to be somnolent when not fully engaged. He was subsequently brought to the emergency room for further evaluation and treatment. In the emergency room he was found to have no acute skull fracture, brain injury, evidence for an intracranial bleed and no evidence for acute injury or fracture of the cervical spine. He was noted to be hypotensive transiently in the ER but his hypotension responded dramatically to IV fluid therapy. He was also found to have a creatinine greater than 3 with a BUN in the 30s. This is substantially different than laboratory test performed less than one year ago. With these findings it was felt that the patient should be admitted to the hospital for further evaluation and treatment. Hospital Course Hospital Course: This is a 57 years old male patient brought to ER after he involved in mechanical fall and injured his head. His imaging studies are negative for skull fracture or intracranial hemorrhage. Patient is left BKA. He use his prosthetic leg and crunch for ambulation. At ER patient also developed hypotension which is corrected with bolus of fluids.Patient noticed to have NIRANJAN with Cr of 1.56, after cautious hydration his kidney function normalized with creatinine of 0.76. His chest x-ray reported as there is some vague infiltrate in the right lung apex, compatible with pneumonia. Patient has been getting Levaquin. This morning I seen patient resting in bed he is awake alert oriented and conversant. His vital signs and blood works are within normal limits except for his potassium is still it is mildly elevated at 5.2 and I will give him Veltassa. Physical Exam Vital Signs: Temp Pulse Resp BP Pulse Ox 98.5 F 89 16 143/95 H 99 07/05/18 07:27 07/05/18 07:27 07/05/18 07:27 07/05/18 07:27 07/05/18 07:27 Intake & Output 07/04/18 07/05/18 07/06/18 06:59 06:59 06:59 Intake Total 3150 2742 Output Total 1660 4300 Balance 1490 -1558 Weight 127.2 kg General appearance: PRESENT: no acute distress Head exam: PRESENT: atraumatic, normocephalic Eye exam: PRESENT: conjunctiva pink Neck exam: ABSENT: carotid bruit, JVD, lymphadenopathy, thyromegaly Respiratory exam: PRESENT: clear to auscultation harrison. ABSENT: rales, rhonchi, wheezes Cardiovascular exam: PRESENT: RRR. ABSENT: diastolic murmur, rubs, systolic murmur Neurological exam: PRESENT: alert, awake, oriented to time, oriented to situation Results Laboratory Results: 07/05/18 06:05 07/05/18 06:05 07/05/18 07/05/18 06:05 06:05 WBC 11.2 H RBC 4.15 L Hgb 12.5 L Hct 36.4 L MCV 88 MCH 30.0 MCHC 34.2 RDW 13.4 Plt Count 217 Sodium 134.7 L Potassium 5.2 H Chloride 106 Carbon Dioxide 24 Anion Gap 5 BUN 14 Creatinine 0.76 Est GFR ( Amer) > 60 Est GFR (Non-Af Amer) > 60 Glucose 110 Calcium 8.9 Magnesium 1.7 07/03/18 07/04/18 07/04/18 19:43 01:40 01:40 Creatine Kinase 770 H CK-MB (CK-2) 12.80 H Troponin I < 0.012 < 0.012 07/04/18 07/04/18 07/04/18 07:26 07:26 13:51 Creatine Kinase 505 H 2257 H CK-MB (CK-2) 9.52 H Troponin I < 0.012 07/04/18 13:51 Creatine Kinase CK-MB (CK-2) 19.70 H Troponin I < 0.012 Impressions: Cervical Spine CT 07/03/18 19:49 IMPRESSION: No acute fracture. Severe degenerative changes. Postsurgical changes. Head CT 07/03/18 19:49 IMPRESSION: No acute intracranial hemorrhage. Chest X-Ray 07/03/18 21:36 IMPRESSION: Right apical pneumonia. Possible emphysema. copyright 2010 [employer]- All Rights Reserved Qualifiers - * PATIENT BEING DISCHARGED WITH ANY OF THE FOLLOWING DIAGNOSIS: No
[2018-07-05] MEDS: DOCUSATE SODIUM 100 MG CAPSULE PO SCH (11:14)
[2018-07-05] MEDS ORDERED: PATIROMER 8.4 GM SUSP PACKET PO ONE (12:00)
[2018-07-05 12:35] VITALS: BP 137/71
== END 2018-07-05 13:34 | disposition home or self-care (01) | DRG 682 ==
LOC: ER 19:13 → EH 22:10 → 3S 07-04 12:10
PROVIDERS: ADMIT Emergency Medicine; ATTEND Emergency Medicine
DX: N17.9 Acute kidney failure, unspecified (principal); J18.9 Pneumonia, unspecified organism; G93.40 Encephalopathy, unspecified; S06.9X9A Unspecified intracranial injury with loss of consciousness of unspecified duration, initial encounter; F41.9 Anxiety disorder, unspecified; I95.9 Hypotension, unspecified; E87.5 Hyperkalemia; E86.1 Hypovolemia; I10 Essential (primary) hypertension; G89.29 Other chronic pain; M19.90 Unspecified osteoarthritis, unspecified site; Z89.612 Acquired absence of left leg above knee; W01.190A Fall on same level from slipping, tripping and stumbling with subsequent striking against furniture, initial encounter; Y92.009 Unspecified place in unspecified non-institutional (private) residence as the place of occurrence of the external cause; Z91.013 Allergy to seafood; Z88.8 Allergy status to other drugs, medicaments and biological substances; Z91.048 Other nonmedicinal substance allergy status; Z87.891 Personal history of nicotine dependence; Z90.49 Acquired absence of other specified parts of digestive tract; Z97.14 Presence of artificial left leg (complete) (partial); Z83.3 Family history of diabetes mellitus
CPT/HCPCS: 36415; 70450; 71045; 72125; 80048; 80061; 80307; 81001; 82550; 82553; 82962; 83036; 83735; 84439; 84443; 84481; 84484; 85025; 85027; 85610; 85730; 93005; 93010; 94640; 96361; 96374; 99291; J1644; J1956; J2270; J2405; J3490; J7030

== ENCOUNTER 2018-09-06 16:52 | Emergency (ER) | payer OTHER ==
--- NOTE | 2018-09-06 17:38 | ER Document Report ---
ED General - General Chief Complaint: Laceration Stated Complaint: LACERATION Time Seen by Provider: 09/06/18 17:17 Primary Care Provider: ISELA DAVIS NP [Primary Care Provider] - Follow up as needed Mode of Arrival: Ambulatory Information source: Patient TRAVEL OUTSIDE OF THE [place] IN LAST 30 DAYS: No - HPI Patient complains to provider of: Wound to right aj Onset: Other - Couple of months ago Onset/Duration: Gradual Quality of pain: No pain Severity: None Associated symptoms: None Exacerbated by: Denies Relieved by: Denies Similar symptoms previously: No Recently seen / treated by doctor: No Notes: 57-year-old male coming in today with chief complaint wound on right lower leg not healing. He GOUGED A couple spots on his right aj a few months ago. It has not closed up yet. States that it bleeds heavily in the shower. - Related Data Allergies/Adverse Reactions: shellfish derived Allergy (Severe, Verified 11/01/17 11:15) Anaphylaxis gabapentin [From Neurontin] Adverse Reaction (Verified 11/01/17 11:15) shake, sweat cats Allergy (Unknown, Uncoded 07/04/18 00:01) Past Medical History - General Information source: Patient - Social History Smoking Status: Current Every Day Smoker Family History: Reviewed & Not Pertinent - Past Medical History Cardiac Medical History: Denies: Hx Coronary Artery Disease, Hx Heart Attack, Hx Hypertension, Hx Pulmonary Embolism Pulmonary Medical History: Reports: Hx Pneumonia - YEARS AGO Denies: Hx Asthma, Hx Bronchitis, Hx COPD, Hx Respiratory Failure, Hx Sleep Apnea, Hx Tuberculosis Neurological Medical History: Denies: Hx Cerebrovascular Accident, Hx Seizures Renal/ Medical History: Denies: Hx Peritoneal Dialysis Malignancy Medical History: Denies Hx Lung Cancer GI Medical History: Denies: Hx Cirrhosis, Hx Hepatitis Musculoskeletal Medical History: Reports Hx Arthritis - ARTHRITIS, Denies Hx Fibromyalgia, Denies Hx Gout, Denies Hx Muscular Dystrophy Skin Medical History: Denies Hx Eczema, Denies Hx Psoriasis Traumatic Medical History: Denies: Hx Fractures Infectious Medical History: Denies: Hx Hepatitis Past Surgical History: Reports: Hx Appendectomy, Hx Orthopedic Surgery - Total of at least 15 surgeries 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 Denies: Hx Bowel Surgery, Hx Cholecystectomy, Hx Coronary Artery Bypass Graft, Hx Gastric Bypass Surgery, Hx Herniorrhaphy, Hx Pacemaker - Immunizations Hx Diphtheria, Pertussis, Tetanus Vaccination: Yes Hx Pneumococcal Vaccination: 03/20/15 Review of Systems - Review of Systems Notes: Constitutional: No fevers. No chills. EENT: No eye redness. No eye pain. No ear pain. No sore throat. Cardiovascular: No chest pain. No palpitations. Respiratory: No cough. No shortness of breath. No respiratory distress. Gastrointestinal: No abdominal pain. No nausea, vomiting, or diarrhea. Genitourinary: Atraumatic. No lesions. No pain. No discharge. Musculoskeletal: Atraumatic. No swelling. No deformities. Skin: Open wounds right aj Lymphatic: No swollen lymph nodes. Neurologic: No headache. No syncope. Psychiatric: No suicidal or homicidal ideation. Physical Exam - Vital signs Vitals: Temp Pulse Resp BP Pulse Ox 98.1 F 99 18 125/70 98 09/06/18 17:03 09/06/18 17:03 09/06/18 17:03 09/06/18 17:03 09/06/18 17:03 - Notes Notes: General: Well-developed, well-nourished. In no acute distress. Non-toxic appearing. Cardiac: Well-perfused. Regular rate and rhythm. No murmurs, rubs, or gallops. Pulmonary: No respiratory distress. No cyanosis. Bilateral lung cristina are clear to auscultation. Abdominal: Non-distended. Non-rigid. Bowels sounds are present in all four quadrants. No guarding or rebound. HEENT: Head is atraumatic. Conjunctivae not reddened. No tearing. PERRL. EOMI. Orbits atraumatic. No periorbital swelling or erythema. Oropharynx is without erythema, swelling, or exudates. Neck: Supple. No adenopathy. No meningismus. Dermatologic: 2 shallow skin avulsions to the right anterior aj with small red warm halo. Chest: Atraumatic. No chest wall tenderness to palpation. Musculoskeletal: Moves all extremities well. No range of motion deficits. no muscular or joint tenderness. No paraspinal muscle tenderness. no midline spinal tenderness or step-off. Genitourinary: Examination deferred Neurologic: No gross neurologic deficits. Psychiatric: Normal mood. Course - Re-evaluation Re-evalutation: 03/20/19 17:42 This patient seems to be having an unusually long and will need to follow close ly with his primary care doctor till resolution. Long course for wound healing. He is not a diabetic. Will get x-ray to rule out foreign body. If everything looks okay from that standpoint will probably use some silver nitrate to cauterize the bleeding lesion. He will definitely need to be on some antibiotics for probable cellulitis. 09/06/18 18:32 Wounds to the right lower leg are clean and dry silver nitrate was applied to cauterize any open areas. Dry nonstick dressing applied. Will start patient on Keflex to treat for wound infection. Have him follow-up with his primary care doctor in a couple days - Vital Signs Vital signs: Temp Pulse Resp BP Pulse Ox 98.1 F 99 18 125/70 98 09/06/18 17:03 09/06/18 17:03 09/06/18 17:03 09/06/18 17:03 09/06/18 17:03 Discharge - Discharge Clinical Impression: Nonhealing nonsurgical wound limited to breakdown of skin Condition: Good Disposition: HOME, SELF-CARE Instructions: Prophylactic Antibiotic ([facility]), Laceration Care ([facility]) Additional Instructions: Please follow-up closely with your primary care doctor in the next 24-48 hours. Prescriptions: Cephalexin Monohydrate [Keflex 500 mg Capsule] 500 mg PO TID 10 Days #30 capsule Referrals: ISELA DAVIS NP [Primary Care Provider] - Follow up tomorrow
--- NOTE | 2018-09-06 18:19 | RADIOLOGY REPORT (SQ) ---
EXAM DESCRIPTION: TIBIA FIBULA RIGHT COMPLETED DATE/TIME: 09/06/2018 5:50 pm REASON FOR STUDY: nonhealing wound-r/o fb, r/o osteo COMPARISON: None. NUMBER OF VIEWS: Two views. TECHNIQUE: Two radiographic images acquired of the right tibia and fibula to include the knee and an kle in at least one projection. LIMITATIONS: None. FINDINGS: MINERALIZATION: Osteopenia. BONES: No acute fracture or dislocation. No worrisome bone lesions. SOFT TISSUES: Diffuse soft tissue swelling. OTHER: Status post right knee total arthroplasty. Partially imaged arthropathy of the right midfoot. IMPRESSION: Osteopenia. No fracture or dislocation of the right tibia or fibula. No radiographic e vidence of osteomyelitis. No radiopaque foreign body. Diffuse soft tissue swelling about the right lower leg. MRI is more sensitive for the evaluation of bone marrow edema and detection of osteomyeli tis. TECHNICAL DOCUMENTATION: JOB ID: [id number] [employer]- All Rights Reserved Reading location - IP/workstation name: [email or web address]
[2018-09-06 19:32] VITALS: BP 108/60
== END 2018-09-06 19:34 | disposition home or self-care (01) ==
LOC: ER 16:52
DX: S81.801A Unspecified open wound, right lower leg, initial encounter (principal); W19.XXXA Unspecified fall, initial encounter; Y93.01 Activity, walking, marching and hiking; Z87.892 Personal history of anaphylaxis; Z91.013 Allergy to seafood; Z91.048 Other nonmedicinal substance allergy status; F17.200 Nicotine dependence, unspecified, uncomplicated
CPT/HCPCS: 99283

== ENCOUNTER 2018-09-19 14:08 | Emergency (ER) | payer OTHER ==
--- NOTE | 2018-09-19 14:41 | ER Document Report ---
ED Medical Screen (RME) - General Chief Complaint: Leg Injury Stated Complaint: LEG INJURY Time Seen by Provider: 09/19/18 14:35 Primary Care Provider: ISELA DAVIS NP [Primary Care Provider] - Follow up as needed TRAVEL OUTSIDE OF THE [place] IN LAST 30 DAYS: No - HPI Notes: 09/19/18 14:39 Patient is a 57-year-old male with a history of chronic pain and multiple orthopedic surgeries who presents the emergency department for a bleeding wound to his right anterior distal leg. Patient states that he was here about 2 weeks ago the day after he scraped his leg and had some bleeding from the area. Patient states that he had it cauterized at that time. Patient states that he has not had any issues until this past Tuesday when it started bleeding again. Patient currently has it wrapped in Co-band. He has no other concerns or complaints. He has not noticed any redness or purulence. Denies any headache, fever, URI, sore throat, chest pain, palpitations, syncope, cough, shortness of breath, wheeze, dyspnea, abdominal pain, nausea/vomiting/diarrhea, urinary retention, dysuria, hematuria, or rash. I have treated and performed a rapid initial assessment of this patient. A comprehensive ED assessment and evaluation of the patient, analysis of test results and completion of medical decision making process will be conducted by additional ED providers. PHYSICAL EXAMINATION: GENERAL: Well-appearing, well-nourished and in no acute distress. A&Ox4. Answers questions appropriately. LUNGS: Breath sounds clear to auscultation bilaterally and equal. No wheezes ra les or rhonchi. - Related Data Allergies/Adverse Reactions: shellfish derived Allergy (Severe, Verified 09/19/18 14:11) Anaphylaxis gabapentin [From Neurontin] Adverse Reaction (Verified 09/19/18 14:11) shake, sweat cats Allergy (Unknown, Uncoded 09/19/18 14:11) Past Medical History - Past Medical History Cardiac Medical History: Denies: Hx Coronary Artery Disease, Hx Heart Attack, Hx Hypertension, Hx Pulmonary Embolism Pulmonary Medical History: Reports: Hx Pneumonia - YEARS AGO Denies: Hx Asthma, Hx Bronchitis, Hx COPD, Hx Respiratory Failure, Hx Sleep Apnea, Hx Tuberculosis Neurological Medical History: Denies: Hx Cerebrovascular Accident, Hx Seizures Renal/ Medical History: Denies: Hx Peritoneal Dialysis Malignancy Medical History: Denies Hx Lung Cancer GI Medical History: Denies: Hx Cirrhosis, Hx Hepatitis Musculoskeltal Medical History: Reports Hx Arthritis - ARTHRITIS, Denies Hx Fibromyalgia, Denies Hx Gout, Denies Hx Muscular Dystrophy Skin Medical History: Denies Hx Eczema, Denies Hx Psoriasis Traumatic Medical History: Denies: Hx Fractures Infectious Medical History: Denies: Hx Hepatitis Past Surgical History: Reports: Hx Appendectomy, Hx Orthopedic Surgery - Total of at least 15 surgeries 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 Denies: Hx Bowel Surgery, Hx Cholecystectomy, Hx Coronary Artery Bypass Graft, Hx Gastric Bypass Surgery, Hx Herniorrhaphy, Hx Pacemaker - Immunizations Hx Diphtheria, Pertussis, Tetanus Vaccination: Yes History of Influenza Vaccine for 03/2017 - 08/2017 Season: Yes Influenza Administration Date for 03/2017 - 08/2017 Season: 03/20/17 Physical Exam - Vital signs Vitals: Temp Pulse Resp BP Pulse Ox 97.4 F 81 16 133/68 H 99 09/19/18 14:09/19/18 14:29 09/19/18 14:29 09/19/18 14:29 09/19/18 14:29 Course - Vital Signs Vital signs: Temp Pulse Resp BP Pulse Ox 97.4 F 81 16 133/68 H 99 09/19/18 14:29 09/19/18 14:29 09/19/18 14:29 09/19/18 14:29 09/19/18 14:29 Doctor's Discharge - Discharge Referrals: ISELA DAVIS NP [Primary Care Provider] - Follow up as needed
--- NOTE | 2018-09-19 15:17 | ER Document Report ---
ED General - General Chief Complaint: Leg Injury Stated Complaint: LEG INJURY Time Seen by Provider: 09/19/18 14:35 Primary Care Provider: ISELA DAVIS NP [Primary Care Provider] - Follow up as needed Notes: 57-year-old male with a history of chronic pain and multiple orthopedic surgeries presents the emergency department for a bleeding wound to his right anterior distal leg. Patient states that he was here about 2 weeks ago the day after he scraped his leg and had some bleeding from the area. Patient states that he had it cauterized with silver nitrate. Patient states that he has not had any issues until this past Tuesday when it started bleeding again. Patient currently has it wrapped in Coban. He has no other concerns or complaints. He has not noticed any redness or purulence. Denies any headache, fever, URI, sore throat, chest pain, palpitations, syncope, cough, shortness of breath, wheeze, dyspnea, abdominal pain, nausea/vomiting/diarrhea, urinary retention, dysuria, hematuria, or rash. TRAVEL OUTSIDE OF THE [place] IN LAST 30 DAYS: No - Related Data Allergies/Adverse Reactions: shellfish derived Allergy (Severe, Verified 09/19/18 14:11) Anaphylaxis gabapentin [From Neurontin] Adverse Reaction (Verified 09/19/18 14:11) shake, sweat cats Allergy (Unknown, Uncoded 09/19/18 14:11) Past Medical History - Social History Smoking Status: Current Every Day Smoker Frequency of alcohol use: None Drug Abuse: None Family History: Reviewed & Not Pertinent Patient has suicidal ideation: No Patient has homicidal ideation: No - Past Medical History Cardiac Medical History: Denies: Hx Coronary Artery Disease, Hx Heart Attack, Hx Hypertension, Hx Pulmonary Embolism Pulmonary Medical History: Reports: Hx Pneumonia - YEARS AGO Denies: Hx Asthma, Hx Bronchitis, Hx COPD, Hx Respiratory Failure, Hx Sleep Apnea, Hx Tuberculosis Neurological Medical History: Denies: Hx Cerebrovascular Accident, Hx Seizures Renal/ Medical History: Denies: Hx Peritoneal Dialysis Malignancy Medical History: Denies Hx Lung Cancer GI Medical History: Denies: Hx Cirrhosis, Hx Hepatitis Musculoskeletal Medical History: Reports Hx Arthritis - ARTHRITIS, Denies Hx Fibromyalgia, Denies Hx Gout, Denies Hx Muscular Dystrophy Skin Medical History: Denies Hx Eczema, Denies Hx Psoriasis Traumatic Medical History: Denies: Hx Fractures Infectious Medical History: Denies: Hx Hepatitis Past Surgical History: Reports: Hx Appendectomy, Hx Orthopedic Surgery - Total of at least 15 surgeries 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 Denies: Hx Bowel Surgery, Hx Cholecystectomy, Hx Coronary Artery Bypass Graft, Hx Gastric Bypass Surgery, Hx Herniorrhaphy, Hx Pacemaker - Immunizations Hx Diphtheria, Pertussis, Tetanus Vaccination: Yes Hx Pneumococcal Vaccination: 03/20/15 Review of Systems - Review of Systems Constitutional: See HPI EENT: See HPI Cardiovascular: See HPI Respiratory: See HPI Gastrointestinal: See HPI Genitourinary: No symptoms reported Male Genitourinary: No symptoms reported Musculoskeletal: No symptoms reported Skin: See HPI Hematologic/Lymphatic: See HPI Neurological/Psychological: No symptoms reported Physical Exam - Vital signs Vitals: Temp Pulse Resp BP Pulse Ox 97.4 F 81 16 133/68 H 99 09/19/18 14:29 09/19/18 14:29 09/19/18 14:29 09/19/18 14:29 09/19/18 14:29 - Notes Notes: PHYSICAL EXAMINATION: Reviewed vital signs and charting by RN GENERAL: Alert, interacts well. No acute distress. HEAD: Normocephalic, atraumatic. EYES: Pupils equal and round. Extraocular movements intact. ENT: Oral mucosa moist NECK: Full range of motion. Supple. Trachea midline. LUNGS: No respiratory distress. EXTREMITIES: BKA left leg, anterior distal right lower extremity with area approximately 2 inches x 3 inches with a superficial epidermis is sheared off, area of fluctuance. BACK: No CVAT NEUROLOGIC: Oriented and appropriate. Normal speech. PSYCH: Normal affect, normal mood. SKIN: Warm, dry, normal turgor. No rashes or lesions noted. Course - Re-evaluation Re-evalutation: 09/19/18 15:51 Pleasant and well-appearing after I obtained a wound culture of the anterior distal right lower extremity patient called out for help and was found to have a spurting hemorrhage coming from the site of the anterior lesion. Pressure dressing was applied and Coban applied. Bleeding control obtained. Will get CBC and CMP. Will discuss with supervising physician and most likely moved to a CT angioma of the right lower extremity. 09/19/18 16:35 Discussed with supervising physician. His recommendation was to consult surgery. Surgery will come see the patient requested to have the sutures set up with 2-0 nylon at the bedside in case it is suture is warranted. Also tib-fib of the right leg was ordered. 09/19/18 17:27 Dr. Hilliard came and saw the patient. Per his assessment he believes that the bleeding was from a varicose vein and due to venous stasis. He assessed the wound and his recommendation was to Place Xeroform on it and follow-up with the surgical clinic. He wants him to see Dr. Vanessa Hancock. He recommended also that he keep the leg elevated when he is not active and moving around to promote venous return. He also recommended that the patient needs to wear graduated compression stocking due to venous stasis. Instructions were given on dressing changes until he sees the wound clinic. - Vital Signs Vital signs: Temp Pulse Resp BP Pulse Ox 97.4 F 81 16 133/68 H 99 09/19/18 14:29 09/19/18 14:29 09/19/18 14:29 09/19/18 14:29 09/19/18 14:29 - Laboratory Result Diagrams: 09/19/18 16:04 09/19/18 16:04 Laboratory results interpreted by me: 09/19/18 09/19/18 16:04 16:04 RBC 3.42 L Hgb 9.9 L Hct 28.2 L Sodium 127.8 L Chloride 94 L Creatinine 1.41 H Est GFR (Non-Af Amer) 52 L Direct Bilirubin 0.6 H Total Protein 5.5 L Albumin 3.2 L Discharge - Discharge Clinical Impression: Venous bleed, Venous stasis Condition: Good Disposition: HOME, SELF-CARE Additional Instructions: You are seen in the emergency department this evening for a venous bleed. It is most likely from a varicose vein and those things can bleed like arteries. We have placed something called Xeroform dressing on the wound. Please leave that on for the first 48 hours and do not take off the dressing at all. As the dres sing dry but will fall off on its own. When that happens he completion of Xeroform dressing on there and do the same thing. If you shower, please shower first before taking off the Coban and dressings. After you get out of the shower then you can remove that and put a new dressing on. If you develop fever, severe leg pain out of proportion to movement, notice red streaks moving up your legs, redness around the area, please call the wound clinic and or come to the emergency department. Referrals: ISEAL DAVIS NP [Primary Care Provider] - Follow up as needed CHANDAN HANCOCK MD [ACTIVE STAFF] - Follow up in 3-5 days
[2018-09-19] MEDS ORDERED: LIDOCAINE 1% INJ-PF (10 MG/ML) 30 ML SDV INJ ONE (16:19)
[2018-09-19 16:26] LABS: ABSOLUTE BASOPHILS # (AUTO) 0.1 10^3/uL (0.0-0.2); ABSOLUTE EOSINOPHILS # (AUTO) 0.3 10^3/uL (0.0-0.6); ABSOLUTE MONOCYTES (AUTO) 0.5 10^3/uL (0.1-1.4); ABSOLUTE NEUT (AUTO) 6.2 10^3/uL (1.7-8.2); BASOPHILS % (AUTO) 1.2 % (0-2); EOSINOPHILS % (AUTO) 3.2 % (0-6); HEMATOCRIT 28.2 % (37.9-51.0); HEMOGLOBIN 9.9 g/dL (13.5-17.0); LYMPHOCYTES % (AUTO) 21.7 % (13-45); MEAN CORPUSCULAR HGB CONC 35.1 g/dL (32.0-36.0); MEAN CORPUSCULAR VOLUME 83 fl (80-97); MONOCYTES % (AUTO) 5.8 % (3-13); PLATELET COUNT 340 10^3/uL (150-450); RED BLOOD COUNT 3.42 10^6/uL (4.35-5.55); RED CELL DISTRIBUTION WIDTH 12.9 % (11.5-14.0); SEGMENTED NEUTROPHILS % (AUTO) 68.1 % (42-78); TOTAL CELLS COUNTED % (AUTO) 100 %; WHITE BLOOD COUNT 9.1 10^3/uL (4.0-10.5)
[2018-09-19 16:48] LABS: ALANINE AMINOTRANSFERASE 27 U/L (21-72); ALBUMIN 3.2 g/dL (3.5-5.0); ALKALINE PHOSPHATASE 99 U/L (38-126); ANION GAP 6 (5-19); ASPARTATE AMINO TRANSFERASE 36 U/L (17-59); BILIRUBIN,DIRECT 0.6 mg/dL (0.0-0.4); BILIRUBIN,TOTAL 0.6 mg/dL (0.2-1.3); BLOOD UREA NITROGEN 14 mg/dL (7-20); CALCIUM 9.2 mg/dL (8.4-10.2); CARBON DIOXIDE 28 mmol/L (22-30); CHLORIDE 94 mmol/L (98-107); GLUCOSE 85 mg/dL (75-110); POTASSIUM 4.4 mmol/L (3.6-5.0); SODIUM 127.8 mmol/L (137-145); TOTAL PROTEIN 5.5 g/dL (6.3-8.2)
--- NOTE | 2018-09-19 16:48 | RADIOLOGY REPORT (SQ) ---
EXAM DESCRIPTION: TIBIA FIBULA RIGHT COMPLETED DATE/TIME: 09/19/2018 4:34 pm REASON FOR STUDY: concern for osteomyelitis COMPARISON: 09/06/2018. NUMBER OF VIEWS: Two views. TECHNIQUE: Two radiographic images acquired of the right tibia and fibula to include the knee and an kle in at least one projection. LIMITATIONS: None. FINDINGS: MINERALIZATION: Patchy demineralization. BONES: No acute fracture or dislocation. Knee prosthesis. No worrisome bone lesions. SOFT TISSUES: No obvious swelling or foreign body. OTHER: No other significant finding. IMPRESSION: PATCHY DEMINERALIZATION. CANNOT EXCLUDE POSSIBILITY OF OSTEOMYELITIS BASED ON RADIOGRAP HIC APPEARANCE. IF THERE IS STRONG CLINICAL CONCERN, THEN MRI MAY BE INDICATED. TECHNICAL DOCUMENTATION: JOB ID: [id number] [employer]- All Rights Reserved Reading location - IP/workstation name: [email or web address]
[2018-09-19 17:41] VITALS: BP 107/67
== END 2018-09-19 17:42 | disposition home or self-care (01) ==
LOC: ER 14:08
DX: I87.8 Other specified disorders of veins (principal); G89.29 Other chronic pain; F17.200 Nicotine dependence, unspecified, uncomplicated; Z91.013 Allergy to seafood; Z89.612 Acquired absence of left leg above knee
CPT/HCPCS: 36415; 80053; 85025; 87070; 87205; 99283

== ENCOUNTER 2018-10-03 13:18 | Inpatient (IN) | payer OTHER ==
[2018-10-03] MEDS ORDERED: NORMAL SALINE 1000 ML 1,000 ML IV ONE ×2 (14:35→17:02)
[2018-10-03] MEDS ORDERED: ONDANSETRON HCL INJ/PF 4 MG/2 ML SDV IV ONE (14:36)
[2018-10-03] MEDS ORDERED: DICYCLOMINE HCL INJ 20 MG/2 ML AMPULE IM ONE (14:37)
--- NOTE | 2018-10-03 14:38 | ER Document Report ---
ED General - General Chief Complaint: Syncope Stated Complaint: ABDOMINAL PAIN Time Seen by Provider: 10/03/18 14:02 Notes: Patient is a 57-year-old male with a chief complaint of chronic pain that presents to the emergency department for chief complaint of syncopal episode and abdominal pain. Patient states that he was having a bowel movement, and stood up from the toilet, and really passed out did hit his head, he laid on the floor for a few hours afterwards. He has been having diarrheal episodes of the past several days, has a history of C. difficile infection in the past that he had gotten from the hospital. He has been complaining of abdominal pain which he currently rates as a 7 out of 10 describes as an aching pain over his entire abdomen, he states that his diarrhea is been rather watery. Denies having any fevers, chills, night sweats, has had some nausea associated with this as well. Denies having any chest pain, shortness of breath or difficulty breathing. Past Medical History: Osteoporosis, chronic pain, history of C. difficile Past Surgical History: Left [id number] amputation, back and neck surgery Social History: Admits to smoking cigarettes, denies alcohol or drug use. Family History: Reviewed and noncontributory for presenting illness Allergies: Reviewed, see documented allergy list. REVIEW OF SYSTEMS: Other than noted above, the 12 point review of systems was reviewed with the patient and were negative, all pertinent findings are included in the HPI. PHYSICAL EXAMINATION: Vital signs reviewed, nursing noted reviewed. GENERAL: Patient appears uncomfortable on exam. HEAD: Atraumatic, normocephalic. EYES: Eyes appear normal, extraocular movements intact, sclera anicteric, conjunctiva are normal. PERRLA, no nystagmus ENT: nares patent, oropharynx clear without exudates. Moist mucous membranes. NECK: Normal range of motion, supple without lymphadenopathy, no midline tenderness LUNGS: Breath sounds clear to auscultation bilaterally and equal. No wheezes rales or rhonchi. HEART: Regular rate and rhythm without murmurs ABDOMEN: Soft, diffuse abdominal tenderness with palpation, normoactive bowel sounds. No rebound, guarding, or rigidity. No masses appreciated. EXTREMITIES: Nontender, good range of motion, no pitting or edema. NEUROLOGICAL: No focal neurological deficits. Moves all extremities spontaneously Motor and sensory grossly intact on exam. PSYCH: Normal mood, normal affect. SKIN: Warm, Dry, normal turgor, no rashes or lesions noted on exposed skin TRAVEL OUTSIDE OF THE [place] IN LAST 30 DAYS: No - Related Data Allergies/Adverse Reactions: shellfish derived Allergy (Severe, Verified 09/19/18 14:11) Anaphylaxis gabapentin [From Neurontin] Adverse Reaction (Verified 09/19/18 14:11) shake, sweat cats Allergy (Unknown, Uncoded 09/19/18 14:11) Past Medical History - Social History Smoking Status: Unknown if Ever Smoked Chew tobacco use (# tins/day): No Frequency of alcohol use: None Drug Abuse: None Family History: Reviewed & Not Pertinent Patient has suicidal ideation: No Patient has homicidal ideation: No - Past Medical History Cardiac Medical History: Denies: Hx Coronary Artery Disease, Hx Heart Attack, Hx Hypertension, Hx Pulmonary Embolism Pulmonary Medical History: Reports: Hx Pneumonia - YEARS AGO Denies: Hx Asthma, Hx Bronchitis, Hx COPD, Hx Respiratory Failure, Hx Sleep Apnea, Hx Tuberculosis Neurological Medical History: Denies: Hx Cerebrovascular Accident, Hx Seizures Renal/ Medical History: Denies: Hx Peritoneal Dialysis Malignancy Medical History: Denies Hx Lung Cancer GI Medical History: Denies: Hx Cirrhosis, Hx Hepatitis Musculoskeletal Medical History: Reports Hx Arthritis - ARTHRITIS, Denies Hx Fibromyalgia, Denies Hx Gout, Denies Hx Muscular Dystrophy Skin Medical History: Denies Hx Eczema, Denies Hx Psoriasis Traumatic Medical History: Denies: Hx Fractures Infectious Medical History: Denies: Hx Hepatitis Past Surgical History: Reports: Hx Appendectomy, Hx Orthopedic Surgery - Total of at least 15 surgeries 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 Denies: Hx Bowel Surgery, Hx Cholecystectomy, Hx Coronary Artery Bypass Graft, Hx Gastric Bypass Surgery, Hx Herniorrhaphy, Hx Pacemaker - Immunizations Hx Diphtheria, Pertussis, Tetanus Vaccination: Yes Hx Pneumococcal Vaccination: 03/20/15 Physical Exam - Vital signs Vitals: Pulse Ox 94 10/03/18 13:36 Course - Re-evaluation Re-evalutation: Patient seen and examined vital signs reviewed. Laboratory data and imaging were ordered as appropriate for the patient's presenting symptoms and complaint, with consideration of any critical or life threatening conditions that may be associated with their obtained history and exam as noted above. Patient was treated with IV fluids, IM Bentyl, and Zofran Results were reviewed when available and demonstrated leukocytosis, CT imaging demonstrated concern for enteritis, patient did have multiple watery bowel movements in the ED, and therefore this was sent off for C. difficile, patient has had a history of this in the past, and it did come back positive for the toxin. Patient was then started on IV Flagyl, given a dose of p.o. vancomycin 125 mg. 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 vancomycin at this point. The patient was re-evaluated and was improved Evaluation was most consistent with C. difficile colitis, abdominal pain, leukocytosis, and syncopal episode, he was noted to have a mild AK I from his baseline, as well as hyponatremia, which appears to be chronic for this patient. Results were discussed with the patient at this point after careful consideration I feel that that patient should be admitted to the hospital. This was discussed with the patient that it is in the best interest for their care to be admitted for further evaluation and management. Patient agreed with this plan of care. A call was placed to the admitted physician, Dr. Neumann who graciously accepted the patient onto their service. *Note is created using voice recognition software and may contain spelling, syntax or grammatical errors. Laboratory 10/03/18 10/03/18 10/03/18 16:00 16:00 16:00 WBC 16.0 H RBC 4.33 L Hgb 12.1 L Hct 36.2 L MCV 83 MCH 28.0 MCHC 33.5 RDW 13.4 Plt Count 389 Total Counted 100 Seg Neutrophils % Not Reportable Seg Neuts % (Manual) 91 H Band Neutrophils % 3 Lymphocytes % Not Reportable Lymphocytes % (Manual) 2 L Monocytes % Not Reportable Monocytes % (Manual) 4 Eosinophils % Not Reportable Eosinophils % (Manual) 0 Basophils % Not Reportable Basophils % (Manual) 0 Absolute Neutrophils Not Reportable Abs Neuts (Manual) 15.0 H Absolute Lymphocytes Not Reportable Abs Lymphs (Manual) 0.3 L Absolute Monocytes Not Reportable Abs Monocytes (Manual) 0.6 Absolute Eosinophils Not Reportable Absolute Eos (Manual) 0.0 Absolute Basophils Not Reportable Abs Basophils (Manual) 0.0 Toxic Vacuolation PRESENT Platelet Comment ADEQUATE Poikilocytosis SLIGHT Ovalocytes SLIGHT Sodium 126.1 L Potassium 4.2 Chloride 94 L Carbon Dioxide 22 Anion Gap 10 BUN 13 Creatinine 1.35 H Est GFR ( Amer) > 60 Est GFR (Non-Af Amer) 55 L Glucose 118 H Calcium 9.1 Total Bilirubin 1.1 Direct Bilirubin 0.8 H Neonat Total Bilirubin Not Reportable Neonat Direct Bilirubin Not Reportable Neonat Indirect Bili Not Reportable AST 67 H ALT 28 Alkaline Phosphatase 318 H Creatine Kinase 1278 H Troponin I < 0.012 Total Protein 5.9 L Albumin 3.2 L Lipase 47.4 Urine Color Urine Appearance Urine pH Ur Specific Artesian Urine Protein Urine Glucose (UA) Urine Ketones Urine Blood Urine Nitrite Urine Bilirubin Urine Urobilinogen Ur Leukocyte Esterase Urine WBC (Auto) U Hyaline Cast (Auto) Urine Mucus (Auto) Urine Ascorbic Acid C. difficile Tox (PCR) 10/03/18 10/03/18 17:00 17:30 WBC RBC Hgb Hct MCV MCH MCHC RDW Plt Count Total Counted Seg Neutrophils % Seg Neuts % (Manual) Band Neutrophils % Lymphocytes % Lymphocytes % (Manual) Monocytes % Monocytes % (Manual) Eosinophils % Eosinophils % (Manual) Basophils % Basophils % (Manual) Absolute Neutrophils Abs Neuts (Manual) Absolute Lymphocytes Abs Lymphs (Manual) Absolute Monocytes Abs Monocytes (Manual) Absolute Eosinophils Absolute Eos (Manual) Absolute Basophils Abs Basophils (Manual) Toxic Vacuolation Platelet Comment Poikilocytosis Ovalocytes Sodium Potassium Chloride Carbon Dioxide Anion Gap BUN Creatinine Est GFR ( Amer) Est GFR (Non-Af Amer) Glucose Calcium Total Bilirubin Direct Bilirubin Neonat Total Bilirubin Neonat Direct Bilirubin Neonat Indirect Bili AST ALT Alkaline Phosphatase Creatine Kinase Troponin I Total Protein Albumin Lipase Urine Color YELLOW Urine Appearance CLEAR Urine pH 6.0 Ur Specific Artesian 1.008 Urine Protein NEGATIVE Urine Glucose (UA) NEGATIVE Urine Ketones NEGATIVE Urine Blood SMALL H Urine Nitrite NEGATIVE Urine Bilirubin NEGATIVE Urine Urobilinogen NEGATIVE Ur Leukocyte Esterase NEGATIVE Urine WBC (Auto) 0 U Hyaline Cast (Auto) 1 Urine Mucus (Auto) RARE Urine Ascorbic Acid NEGATIVE C. difficile Tox (PCR) POSITIVE Abdomen/Pelvis CT 10/03/18 00:00 IMPRESSION: There is some fluid in the colon, raising the possibility of an enteritis. Findings as described. Cervical Spine CT 10/03/18 14:36 IMPRESSION: Anterolisthesis of C3 on C4. Multilevel degenerative disc disease. Facet arthropathy. Spondylosis. Prior ACDF. Cannot exclude right upper lobe pneumonia. Head CT 10/03/18 14:36 IMPRESSION: NORMAL BRAIN CT WITHOUT CONTRAST. EVIDENCE OF ACUTE STROKE: NO. - Vital Signs Vital signs: Temp Pulse Resp BP Pulse Ox 98.4 F 80 16 122/74 96 10/03/18 23:49 10/03/18 23:49 10/03/18 23:49 10/03/18 23:49 10/03/18 23:49 - Laboratory Result Diagrams: 10/03/18 16:00 10/03/18 16:00 Laboratory results interpreted by me: 10/03/18 10/03/18 10/03/18 16:00 16:00 17:00 WBC 16.0 H RBC 4.33 L Hgb 12.1 L Hct 36.2 L Seg Neuts % (Manual) 91 H Lymphocytes % (Manual) 2 L Abs Neuts (Manual) 15.0 H Abs Lymphs (Manual) 0.3 L Sodium 126.1 L Chloride 94 L Creatinine 1.35 H Est GFR (Non-Af Amer) 55 L Glucose 118 H Direct Bilirubin 0.8 H AST 67 H Alkaline Phosphatase 318 H Creatine Kinase 1278 H Total Protein 5.9 L Albumin 3.2 L Urine Blood SMALL H - EKG Interpretation by Me Additional EKG results interpreted by me: EKG demonstrates sinus rhythm with a ventricular rate of 67 beats per minute, with first-degree AV block, left axis deviation, QTC 461 ms, this is compared to prior EKG, without significant change. Discharge - Discharge Clinical Impression: Clostridium difficile diarrhea, Colitis, Hyponatremia Leukocytosis Qualifiers: Leukocytosis type: unspecified Qualified Code(s): D72.829 - Elevated white blood cell count, unspecified Syncope Qualifiers: Syncope type: unspecified Qualified Code(s): R55 - Syncope and collapse Head injury Qualifiers: Encounter type: initial encounter Qualified Code(s): S09.90XA - Unspecified injury of head, initial encounter Condition: Stable Disposition: ADMITTED INPATIENT Admitting Provider: Nel (Hospitalist) Unit Admitted: Medical Floor
[2018-10-03 16:31] LABS: HEMATOCRIT 36.2 % (37.9-51.0); HEMOGLOBIN 12.1 g/dL (13.5-17.0); MEAN CORPUSCULAR HGB CONC 33.5 g/dL (32.0-36.0); MEAN CORPUSCULAR VOLUME 83 fl (80-97); PLATELET COUNT 389 10^3/uL (150-450); RED BLOOD COUNT 4.33 10^6/uL (4.35-5.55); RED CELL DISTRIBUTION WIDTH 13.4 % (11.5-14.0)
[2018-10-03 16:50] LABS: ALANINE AMINOTRANSFERASE 28 U/L (21-72); ALBUMIN 3.2 g/dL (3.5-5.0); ALKALINE PHOSPHATASE 318 U/L (38-126); ANION GAP 10 (5-19); ASPARTATE AMINO TRANSFERASE 67 U/L (17-59); BILIRUBIN,DIRECT 0.8 mg/dL (0.0-0.4); BILIRUBIN,TOTAL 1.1 mg/dL (0.2-1.3); BLOOD UREA NITROGEN 13 mg/dL (7-20); CALCIUM 9.1 mg/dL (8.4-10.2); CARBON DIOXIDE 22 mmol/L (22-30); CHLORIDE 94 mmol/L (98-107); CREATINE KINASE 1278 U/L (55-170); GLUCOSE 118 mg/dL (75-110); LIPASE 47.4 U/L (23-300); POTASSIUM 4.2 mmol/L (3.6-5.0); SODIUM 126.1 mmol/L (137-145); TOTAL PROTEIN 5.9 g/dL (6.3-8.2)
[2018-10-03 16:52] LABS: ABSOLUTE LYMPHOCYTES# (MANUAL) 0.3 10^3/uL (0.5-4.7); ABSOLUTE MONOCYTES # (MANUAL) 0.6 10^3/uL (0.1-1.4); BAND NEUTROPHILS % (MANUAL) 3 % (3-5); BASOPHILS % (MANUAL) 0 % (0-2); EOSINOPHILS % (MANUAL) 0 % (0-6); LYMPHOCYTES % (MANUAL) 2 % (13-45); MONOCYTES % (MANUAL) 4 % (3-13); SEGMENTED NEUTROPHILS % (MAN) 91 % (42-78); TOTAL CELLS COUNTED 100
[2018-10-03 16:54] LABS: TOXIC VACUOLATION PRESENT
[2018-10-03 16:55] LABS: OVALOCYTES SLIGHT; PLATELET COMMENT ADEQUATE; POIKILOCYTOSIS SLIGHT
--- NOTE | 2018-10-03 17:58 | RADIOLOGY REPORT (SQ) ---
EXAM DESCRIPTION: CT HEAD WITHOUT COMPLETED DATE/TIME: 10/03/2018 5:48 pm REASON FOR STUDY: syncope, head injury COMPARISON: 07/03/2018 TECHNIQUE: Axial images acquired through the brain without intravenous contrast. Images reviewed wi th bone, brain and subdural windows. Additional sagittal and coronal reconstructions were generated. Images stored on PACS. All CT scanners at this facility use dose modulation, iterative reconstruction, and/or weight based d osing when appropriate to reduce radiation dose to as low as reasonably achievable (ALARA). [facility]: Dose Right [facility]: CareDose [facility]: Dose Right [facility]: Teradose 4D [facility]: Smart [employer] RADIATION DOSE: CT Rad equipment meets quality standard of care and radiation dose reduction techniq ues were employed. CTDIvol: 53.2 mGy. DLP: 1070 mGy-cm. mGy. LIMITATIONS: None. FINDINGS: VENTRICLES: Normal size and contour. CEREBRUM: No masses. No hemorrhage. No midline shift. No evidence for acute infarction. Normal gra y/white matter differentiation. No areas of low density in the white matter. CEREBELLUM: No masses. No hemorrhage. No alteration of density. No evidence for acute infarction. EXTRAAXIAL SPACES: No fluid collections. No masses. ORBITS AND GLOBE: No intra- or extraconal masses. Normal contour of globe without masses. CALVARIUM: No fracture. PARANASAL SINUSES: No fluid or mucosal thickening. SOFT TISSUES: No mass or hematoma. OTHER: No other significant finding. IMPRESSION: NORMAL BRAIN CT WITHOUT CONTRAST. EVIDENCE OF ACUTE STROKE: NO. COMMENT: Quality ID # [id number]: Final reports with documentation of one or more dose reduction techniques (e.g., Automated exposure control, adjustment of the mA and/or kV according to patient size, use of iterative reconstruction technique) TECHNICAL DOCUMENTATION: JOB ID: [id number] [employer]- All Rights Reserved Reading location - IP/workstation name: [email or web address]
--- NOTE | 2018-10-03 18:02 | RADIOLOGY REPORT (SQ) ---
EXAM DESCRIPTION: CT CERVICAL SPINE WITHOUT COMPLETED DATE/TIME: 10/03/2018 5:48 pm REASON FOR STUDY: fall, head injury COMPARISON: 07/03/2018 TECHNIQUE: Axial images acquired through the cervical spine without intravenous contrast. Images re viewed with lung, soft tissue and bone windows. Reconstructed coronal and sagittal MPR images review ed. Images stored on PACS. All CT scanners at this facility use dose modulation, iterative reconstruction, and/or weight based d osing when appropriate to reduce radiation dose to as low as reasonably achievable (ALARA). [facility]: Dose Right [facility]: CareDose [facility]: Dose Right [facility]: Teradose 4D [facility]: [employer] RADIATION DOSE: CT Rad equipment meets quality standard of care and radiation dose reduction techniq ues were employed. CTDIvol: 25.4 mGy. DLP: 593 mGy-cm. mGy. LIMITATIONS: None. FINDINGS: ALIGNMENT: Mild anterolisthesis of C3 on C4. MINERALIZATION: Normal. VERTEBRAL BODIES: No fractures or dislocation. DISCS: Disc spaces are narrowed from C3-C7. There is fusion of the C6 and C7 vertebrae. FACETS, LATERAL MASSES, POSTERIOR ELEMENTS: Hypertrophic facet changes in the mid to upper cervical s pine, right more than left. HARDWARE: Anterior plate at C6-7 with screws into the vertebral bodies. VISUALIZED RIBS: No fractures. LUNG APICES AND SOFT TISSUES: Hazy opacification in the right upper lobe. OTHER: No other significant finding. IMPRESSION: Anterolisthesis of C3 on C4. Multilevel degenerative disc disease. Facet arthropathy. Spondylosis. Prior ACDF. Cannot exclude right upper lobe pneumonia. TECHNICAL DOCUMENTATION: JOB ID: [id number] Quality ID # [id number]: Final reports with documentation of one or more dose reduction techniques (e.g., Au tomated exposure control, adjustment of the mA and/or kV according to patient size, use of iterative reconstruction technique) 2010 [employer]- All Rights Reserved Reading location - IP/workstation name: [email or web address]
--- NOTE | 2018-10-03 18:18 | RADIOLOGY REPORT (SQ) ---
EXAM DESCRIPTION: CT ABD/PELVIS WITH IV ORAL COMPLETED DATE/TIME: 10/03/2018 6:02 pm REASON FOR STUDY: abdominal pain COMPARISON: None. TECHNIQUE: CT scan of the abdomen and pelvis performed using helical scanning technique with dynamic intravenous contrast injection. Oral contrast. Images reviewed with lung, soft tissue, and bone win dows. Reconstructed coronal and sagittal MPR images reviewed. Delayed images for evaluation of the ur inary system also acquired. All images stored on PACS. All CT scanners at this facility use dose modulation, iterative reconstruction, and/or weight based d osing when appropriate to reduce radiation dose to as low as reasonably achievable (ALARA). [facility]: Dose Right [facility]: CareDose [facility]: Dose Right [facility]: Teradose 4D [facility]: Lexara CONTRAST TYPE AND DOSE: contrast/concentration: Isovue 350.00 mg/ml; Total Contrast Delivered: 100.0 ml; Total Saline Delivered: 72.0 ml RENAL FUNCTION: BUN 13 creatinine 1.35 RADIATION DOSE: CT Rad equipment meets quality standard of care and radiation dose reduction techniq ues were employed. CTDIvol: 9.6 - 14.4 mGy. DLP: 2036 mGy-cm.. LIMITATIONS: None. FINDINGS: LOWER CHEST: No significant findings. No nodules or infiltrates. LIVER: Normal size. No masses. No dilated ducts. SPLEEN: Normal size. No focal lesions. PANCREAS: No masses. No significant calcifications. No adjacent inflammation or peripancreatic fluid collections. Pancreatic duct not dilated. GALLBLADDER: No identified stones by CT criteria. No inflammatory changes to suggest cholecystitis. ADRENAL GLANDS: No significant masses or asymmetry. RIGHT KIDNEY AND URETER: No solid masses. No significant calcifications. No hydronephrosis or hyd roureter. LEFT KIDNEY AND URETER: No solid masses. No significant calcifications. No hydronephrosis or hydr oureter. AORTA AND VESSELS: No aneurysm. No dissection. Renal arteries, SMA, celiac without stenosis. RETROPERITONEUM: No retroperitoneal adenopathy, hemorrhage or masses. BOWEL AND PERITONEAL CAVITY: There are some fluid-filled loops of bowel, including some fluid in the colon. No obvious bowel mass. APPENDIX: Surgically absent. PELVIS: No mass. No free fluid. Normal bladder. ABDOMINAL WALL: No masses. No hernias. BONES: Surgical changes. Degenerative disc disease and spondylosis. OTHER: No other significant finding. IMPRESSION: There is some fluid in the colon, raising the possibility of an enteritis. Findings as described. TECHNICAL DOCUMENTATION: JOB ID: [id number] Quality ID # [id number]: Final reports with documentation of one or more dose reduction techniques (e.g., Au tomated exposure control, adjustment of the mA and/or kV according to patient size, use of iterative reconstruction technique) 2010 [employer]- All Rights Reserved Reading location - IP/workstation name: [email or web address]
[2018-10-03] MEDS ORDERED: VANCOMYCIN HCL INJ 500 MG VIAL PO ONE (18:53)
[2018-10-03] MEDS ORDERED: METRONIDAZOLE 500 MG/NS RTU 500 MG/100 ML RTUPB IV ONE (18:54)
--- NOTE | 2018-10-03 19:48 | EKG REPORT ---
SEVERITY:- ABNORMAL ECG - SINUS RHYTHM FIRST DEGREE AV BLOCK IVCD, CONSIDER ATYPICAL LBBB : Confirmed by: Cary Maria MD 03-Oct-2018 19:48:06
[2018-10-03] MEDS ORDERED: TEMAZEPAM 15 MG CAPSULE PO PRN (19:55)
[2018-10-03] MEDS ORDERED: MAGNESIUM HYDROXIDE SUSP 30 ML UDCUP PO PRN (19:55)
[2018-10-03] MEDS ORDERED: NICOTINE 21 MG/24 HR PATCH.TD24 TD PRN (20:11)
[2018-10-03] MEDS ORDERED: NALBUPHINE HCL INJ 10 MG/1 ML AMPULE IV SCH (20:30)
[2018-10-03 20:35] LABS: APPEARANCE,URINE CLEAR; BILIRUBIN,URINE NEGATIVE (NEGATIVE); COLOR,URINE YELLOW; GLUCOSE, URINE NEGATIVE (NEGATIVE); KETONES,URINE NEGATIVE (NEGATIVE); LEUKOCYTE ESTERASE,URINE NEGATIVE (NEGATIVE); NITRITE,URINE NEGATIVE (NEGATIVE); PROTEIN,URINE NEGATIVE (NEGATIVE); URINE SPECIFIC GRAVITY 1.008; UROBILINOGEN,URINE NEGATIVE mg/dL (<2.0)
[2018-10-03] MEDS: RINGERS SOLUTION,LACTATED 1,000 ML IV PRN (21:50)
[2018-10-03] MEDS ORDERED: VANCOMYCIN HCL INJ 500 MG VIAL ONE (23:59)
[2018-10-04] MEDS: NALBUPHINE HCL INJ 20 MG/1 ML AMPULE IV SCH ×5 (00:13→14:48)
[2018-10-04] MEDS: HEPARIN SOD (PORCINE) 5,000 UNIT/ML 1 ML SYRINGE SUBCUT SCH ×4 (01:13→21:25)
[2018-10-04] MEDS: VANCOMYCIN HCL INJ 500 MG VIAL PO SCH ×3 (01:15→13:18)
[2018-10-04] MEDS: FAMOTIDINE 20 MG TABLET PO SCH ×3 (01:19→22:04)
[2018-10-04] MEDS ORDERED: VANCOMYCIN HCL INJ 500 MG VIAL ONE (01:26)
--- NOTE | 2018-10-04 02:44 | PDOC H&P ---
History of Present Illness Admission Date/PCP: 10/03/2018 ISELA DAVIS NP Patient complains of: Diarrhea with syncopal episode History of Present Illness: MILAGROS FAIRBANKS JR is a 57 year old male who presented to the emergency room with a 4-day history of multiple diarrhea stools. He admits numerous watery diarrhea stools on a daily basis progressively worsening, to become severe, over the last several days. Today, after having a severe diarrhea stool, he stood up from the toilet and passed out striking his head on the floor and was unconscious for unknown period of time however after arousing he continued to lie on the floor due to his feelings of weakness. He admits the associated symptoms of mild nausea and moderate to severe abdominal cramping/pain. He admits prior similar symptoms with Clostridium difficile enterocolitis in the past. He denies identification of any aggravating or ameliorating factors for his diarrhea. In the emergency room he was found to have a mildly elevated white blood count 16,000 and a C. difficile toxin positive stool. CT scan also showed loops of bowel filled with fluid consistent with enteritis. Patient was subsequently admitted to the hospital for further evaluation and treatment of his recurrent Clostridium difficile enterocolitis. Past Medical History Cardiac Medical History: Denies: Coronary Artery Disease, Myocardial Infarction, Hypertension, Pulmonary Embolism Pulmonary Medical History: Reports: Pneumonia Denies: Asthma, Bronchitis, Chronic Obstructive Pulmonary Disease (COPD), Respiratory Failure, Sleep Apnea, Tuberculosis EENT Medical History: Denies: Cataracts Neurological Medical History: Denies: Hemorrhagic CVA, Ischemic CVA, Seizures Endocrine Medical History: Denies: Diabetes Mellitus Type 1, Diabetes Mellitus Type 2 Renal/ Medical History: Denies: Chronic Kidney Disease, Nephrolithiasis Malignancy Medical History: Reports: None GI Medical History: Denies: Cirrhosis, Hepatitis Musculoskeltal Medical History: Reports: Arthritis, Other - Osteoporosis Denies: Fibromyalgia, Gout Skin Medical History: Denies: Eczema, Psoriasis Psychiatric Medical History: Reports: Substance Abuse, Tobacco Dependency, Other - Chronic pain syndrome Denies: Alcohol Dependency Traumatic Medical History: Reports: None Hematology: Reports: Anemia - BLOOD TRANSFUSION 2015 - x 4 UNITS Denies: Bleeding Tendencies Infectious Medical History: Reports: Clostridium Difficile Denies: Hepatitis B, Hepatitis C, HIV Past Surgical History Past Surgical History: Reports: Appendectomy, Orthopedic Surgery - Total of at least 15 surgeries on his left knee before the AKA, Tonsillectomy, Other - Spinal surgery of neck and back Social History Information Source: Patient Lives with: Spouse/Significant other Smoking Status: Current Every Day Smoker Frequency of Alcohol Use: None Hx Recreational Drug Use: No Drugs: None Hx Prescription Drug Abuse: No - Advance Directive Resuscitation Status: Full Code Surrogate healthcare decision maker:: Family History Family History: Hypertension. denies: CAD, DM, Malignancy Parental Family History Reviewed: Yes Children Family History Reviewed: No Sibling(s) Family History Reviewed.: Yes Medication/Allergy Home Medications: Alprazolam [Xanax 0.5 mg Tablet] 0.5 mg PO Q12HP PRN 10/03/18 Ammonium Lactate [Lac-Hydrin 12% Lotion 225Gm/Bottle] 1 applic TOP BID 10/03/18 Escitalopram Oxalate [Lexapro 10 mg Tablet] 10 mg PO DAILY 10/03/18 Fexofenadine HCl [Sumaya Allergy] 180 mg PO QAM 10/03/18 Fluticasone Propionate [Flonase Nasal [place] 50 Mcg/[place] 16 gm] 2 spray NASL DAILY 10/03/18 Hydroxyzine HCl [Atarax 50 mg Tablet] 100 mg PO BID 10/03/18 Lisinopril/Hydrochlorothiazide [Lisinopril-Hctz 20-25 mg Tab] 1 tab PO DAILY 10/03/18 Morphine Sulfate/Naltrexone [Embeda ER 50-2 mg Capsule] 1 cap PO Q12HP PRN 10/03/18 Naproxen [Naprosyn] 500 mg PO Q12 10/03/18 Oxycodone HCl 10 mg PO Q6HP PRN 10/03/18 Pregabalin [Lyrica] 150 mg PO Q6 10/03/18 Allergies/Adverse Reactions: shellfish derived Allergy (Severe, Verified 09/19/18 14:11) Anaphylaxis gabapentin [From Neurontin] Adverse Reaction (Verified 09/19/18 14:11) shake, sweat cats Allergy (Unknown, Uncoded 09/19/18 14:11) Review of Systems Constitutional: ABSENT: chills, fever(s) Eyes: ABSENT: visual disturbances, other - Eye pain Ears: PRESENT: other - Ear pain. ABSENT: hearing changes Nose, Mouth, and Throat: ABSENT: mouth pain, sore throat Cardiovascular: ABSENT: chest pain, palpitations Respiratory: ABSENT: cough, dyspnea Gastrointestinal: PRESENT: as per HPI, abdominal pain, diarrhea, nausea. ABSENT: constipation, hematochezia, melena, vomiting Genitourinary: ABSENT: dysuria, hematuria Musculoskeletal: ABSENT: joint swelling, muscle weakness Integumentary: ABSENT: pruritus, rash Neurological: PRESENT: as per HPI, syncope. ABSENT: confusion, convulsions, focal weakness, memory loss Psychiatric: ABSENT: anxiety, depression Endocrine: ABSENT: cold intolerance, heat intolerance Hematologic/Lymphatic: ABSENT: easy bleeding, easy bruising Physical Exam Vital Signs: Temp Pulse Resp BP Pulse Ox 97.2 F 14 125/89 H 98 10/03/18 14:00 10/03/18 19:02 10/03/18 19:02 10/03/18 19:02 Intake & Output 10/01/18 10/02/18 10/03/18 23:59 23:59 23:59 Intake Total 1000 Balance 1000 Weight 119 kg General appearance: PRESENT: no acute distress, cooperative Head exam: PRESENT: atraumatic, normocephalic Eye exam: ABSENT: conjunctival injection, scleral icterus Ear exam: PRESENT: drainage, normal external ear exam Mouth exam: PRESENT: dry mucosa, neck supple Neck exam: ABSENT: thyromegaly, tracheal deviation Respiratory exam: PRESENT: clear to auscultation harrison, symmetrical, unlabored Cardiovascular exam: PRESENT: RRR. ABSENT: clicks, gallop, rubs Pulses: PRESENT: normal radial pulses, normal dorsalis pedis pul Vascular exam: PRESENT: normal capillary refill. ABSENT: pallor GI/Abdominal exam: PRESENT: hypoactive bowel sounds, soft, tenderness - Generalized tenderness to light palpation Rectal exam: PRESENT: deferred Extremities exam: PRESENT: other - Status post left BKA. ABSENT: joint swelling, pedal edema Musculoskeletal exam: PRESENT: other - Status post left BKA. ABSENT: deformity, dislocation Neurological exam: PRESENT: alert, awake, oriented to person, oriented to place, oriented to time, oriented to situation, CN II-XII grossly intact. ABSENT: motor sensory deficit Psychiatric exam: PRESENT: appropriate affect, normal mood Skin exam: PRESENT: dry, intact, warm. ABSENT: jaundice, rash, urticaria Results Laboratory Results: 10/03/18 16:00 10/03/18 16:00 10/03/18 10/03/18 16:00 16:00 WBC 16.0 H RBC 4.33 L Hgb 12.1 L Hct 36.2 L MCV 83 MCH 28.0 MCHC 33.5 RDW 13.4 Plt Count 389 Seg Neutrophils % Not Reportable Lymphocytes % Not Reportable Monocytes % Not Reportable Eosinophils % Not Reportable Basophils % Not Reportable Absolute Neutrophils Not Reportable Absolute Lymphocytes Not Reportable Absolute Monocytes Not Reportable Absolute Eosinophils Not Reportable Absolute Basophils Not Reportable Sodium 126.1 L Potassium 4.2 Chloride 94 L Carbon Dioxide 22 Anion Gap 10 BUN 13 Creatinine 1.35 H Est GFR ( Amer) > 60 Est GFR (Non-Af Amer) 55 L Glucose 118 H Calcium 9.1 Total Bilirubin 1.1 AST 67 H ALT 28 Alkaline Phosphatase 318 H Total Protein 5.9 L Albumin 3.2 L Lipase 47.4 10/03/18 10/03/18 16:00 16:00 Creatine Kinase 1278 H Troponin I < 0.012 Impressions: Abdomen/Pelvis CT 10/03/18 00:00 IMPRESSION: There is some fluid in the colon, raising the possibility of an enteritis. Findings as described. Cervical Spine CT 10/03/18 14:36 IMPRESSION: Anterolisthesis of C3 on C4. Multilevel degenerative disc disease. Facet arthropathy. Spondylosis. Prior ACDF. Cannot exclude right upper lobe pneumonia. Head CT 10/03/18 14:36 IMPRESSION: NORMAL BRAIN CT WITHOUT CONTRAST. EVIDENCE OF ACUTE STROKE: NO. Assessment and Plan - Diagnosis (1) Clostridium difficile enterocolitis Is this a current diagnosis for this admission?: Yes Plan: Patient be treated with supportive care utilizing IV fluids and will receive oral vancomycin 125 mg every 6 hours. Will use Nubain 20 mg IV every 4 hours on a scheduled basis for control of his abdominal cramping and discomfort as well as treatment of his chronic pain syndrome. (2) Syncope and collapse Is this a current diagnosis for this admission?: Yes Plan: Patient will be treated with IV fluids to replace his vascular volume and resolve his dehydration. He will be observed closely during his hospital course with initially only being allowed out of bed with assistance. (3) Concussion Qualifiers: Encounter type: initial encounter Loss of consciousness presence/duration: with LOC of unspecified duration Qualified Code(s): S06.0X9A - Concussion with loss of consciousness of unspecified duration, initial encounter Is this a current diagnosis for this admission?: Yes Plan: Patient will be observed throughout his hospital course with neuro checks performed every 4 hours for the first 24 hours and on a as needed basis thereafter. (4) Acute kidney injury Is this a current diagnosis for this admission?: Yes Plan: Patient receive IV fluids to replenish his vascular volume and correct his dehydration. His renal functions will be followed on a regular basis throughout his hospital course. (5) Tobacco use disorder, severe, dependence Is this a current diagnosis for this admission?: Yes Plan: Patient will be treated with a nicotine patch available to him as needed. Smoking cessation is advised and brief smoking cessation counseling is given. - Time Time Spent with patient: 25-34 minutes Smoking Cessation Education: 3 to 10 minutes Medications reviewed and adjusted accordingly: No - medlist unavailable Anticipated discharge: Home - Inpatient Certification Based on my medical assessment, after consideration of the patient's comorbidities, presenting symptoms, or acuity I expect that the services needed warrant INPATIENT care.: Yes I certify that my determination is in accordance with my understanding of Medicare's requirements for reasonable and necessary INPATIENT services [42 CFR 412.3e].: Yes Medical Necessity: Need Close Monitoring Due to Risk of Patient Decompensation, Need For IV Fluids, Need for Neurological Checks, Need for Pain Control, Risk of Complication if Not Cared For in Hospital
[2018-10-04] MEDS: RINGERS SOLUTION,LACTATED 1,000 ML IV PRN (06:48)
[2018-10-04 06:51] LABS: HEMATOCRIT 29.5 % (37.9-51.0); HEMOGLOBIN 10.1 g/dL (13.5-17.0); MEAN CORPUSCULAR HEMOGLOBIN 28.3 pg (27.0-33.4); MEAN CORPUSCULAR HGB CONC 34.2 g/dL (32.0-36.0); MEAN CORPUSCULAR VOLUME 83 fl (80-97); PLATELET COUNT 366 10^3/uL (150-450); RED BLOOD COUNT 3.57 10^6/uL (4.35-5.55); RED CELL DISTRIBUTION WIDTH 13.3 % (11.5-14.0); WHITE BLOOD COUNT 18.4 10^3/uL (4.0-10.5)
[2018-10-04 07:10] LABS: ANION GAP 8 (5-19); BLOOD UREA NITROGEN 16 mg/dL (7-20); CALCIUM 8.9 mg/dL (8.4-10.2); CARBON DIOXIDE 24 mmol/L (22-30); CHLORIDE 95 mmol/L (98-107); CREATINE KINASE 756 U/L (55-170); GLUCOSE 112 mg/dL (75-110); POTASSIUM 3.9 mmol/L (3.6-5.0); SODIUM 127.2 mmol/L (137-145)
[2018-10-04 07:14] LABS: ABSOLUTE LYMPHOCYTES# (MANUAL) 0.4 10^3/uL (0.5-4.7); ABSOLUTE MONOCYTES # (MANUAL) 0.9 10^3/uL (0.1-1.4); ABSOLUTE NEUTROPHILS# (MANUAL) 17.1 10^3/uL (1.7-8.2); BAND NEUTROPHILS % (MANUAL) 4 % (3-5); BASOPHILS % (MANUAL) 0 % (0-2); EOSINOPHILS % (MANUAL) 0 % (0-6); LYMPHOCYTES % (MANUAL) 2 % (13-45); MONOCYTES % (MANUAL) 5 % (3-13); SEGMENTED NEUTROPHILS % (MAN) 89 % (42-78); TOTAL CELLS COUNTED 100
[2018-10-04 07:15] LABS: HYPOCHROMASIA 1+; PLATELET COMMENT ADEQUATE; ROULEAUX SLIGHT
[2018-10-04 07:27] LABS: FREE T3 3.35 pg/mL (2.77-5.27); FREE T4 (FREE THYROXINE) 1.2 ng/dL (0.78-2.19)
[2018-10-04 07:40] LABS: THYROID STIMULATING HORMONE 0.93 uIU/mL (0.47-4.68)
[2018-10-04] MEDS ORDERED: (PENDING PHARMACY ID) (Hydroxyzine Hcl [Atarax 50 Mg Tablet] 100 MG) PO SCH (10:00)
[2018-10-04] MEDS: ESCITALOPRAM OXALATE 10 MG TABLET PO SCH (10:30)
[2018-10-04] MEDS: AMMONIUM LACTATE 12% LOTION 225GM BOTTLE TP SCH ×2 (10:31→19:23)
[2018-10-04] MEDS: FLUTICASONE NASAL SPRAY 50 MCG/SPRY 120 SPRAY/16 GM NASL SCH (10:33)
[2018-10-04] MEDS ORDERED: LORAZEPAM INJ 2 MG/1 ML VIAL IV PRN (14:55)
[2018-10-04] MEDS ORDERED: METOCLOPRAMIDE HCL INJ/PF 10 MG/2 ML SDV IV ONE (15:30)
--- NOTE | 2018-10-04 15:36 | RADIOLOGY REPORT (SQ) ---
EXAM DESCRIPTION: KUB/ABDOMEN (SINGLE VIEW) COMPLETED DATE/TIME: 10/04/2018 3:22 pm REASON FOR STUDY: Ileus COMPARISON: 10/03/2018 NUMBER OF VIEWS: 10/03/2018 TECHNIQUE: Supine radiographic image of the abdomen acquired. LIMITATIONS: None. FINDINGS: BOWEL GAS PATTERN: There are questionable dilated loops of small bowel in the left lower q uadrant measuring up to 5.2 cm. Additional gas and stool noted throughout the colon. There is been transit of previously seen oral contrast within the ascending and transverse colon. CALCIFICATIONS: No suspicious calcifications. SOFT TISSUES: No gross mass or suggestion of organomegaly. HARDWARE: Posterior fusion hardware of the lower lumbar spine. BONES: No acute bony abnormality. Lower lumbar spondylosis. OTHER: No other significant finding. IMPRESSION: Possible mildly dilated small bowel loops in the left lower quadrant. Gas and stool not ed throughout the colon with transit of previously-seen oral contrast into the colon suggests non obs tructive process. TECHNICAL DOCUMENTATION: JOB ID: [id number] [email or web address]- All Rights Reserved Reading location - IP/workstation name: [email or web address]
[2018-10-04] MEDS: HYDROMORPHONE HCL INJ/PF 2 MG/ML AMPULE IV PRN (15:41)
[2018-10-04] MEDS: RIFAXIMIN 550 MG TABLET PO SCH (19:00)
[2018-10-04] MEDS: METOCLOPRAMIDE HCL INJ/PF 10 MG/2 ML SDV IV SCH (19:00)
[2018-10-04] MEDS: PREGABALIN 75 MG CAPSULE PO SCH (19:00)
[2018-10-04] MEDS: METRONIDAZOLE 500 MG/NS RTU 500 MG/100 ML RTUPB IV SCH (19:01)
[2018-10-04] MEDS: NORMAL SALINE 1000 ML 1,000 ML IV PRN (19:01)
--- NOTE | 2018-10-04 21:10 | PDOC PROGRESS REPORT ---
Subjective Progress Note for:: 10/04/18 Subjective:: The patient is in significant pain. He has been exhibiting bilious projectile vomiting. He is somewhat tremulous. Reason For Visit: RECURRENT C DIFF ENTEROCOLITIS Physical Exam Vital Signs: Temp Pulse Resp BP Pulse Ox 99.0 F 93 17 136/69 H 88 L 10/04/18 11:56 10/04/18 11:56 10/04/18 11:56 10/04/18 11:56 10/04/18 11:56 Intake & Output 10/03/18 10/04/18 10/05/18 06:59 06:59 06:59 Intake Total 3100 Balance 3100 Weight 119 kg General appearance: PRESENT: severe distress, well-developed Head exam: PRESENT: atraumatic, normocephalic Ear exam: PRESENT: normal external ear exam Respiratory exam: PRESENT: clear to auscultation harrison, symmetrical, tachypnea. ABSENT: rales, rhonchi, wheezes Cardiovascular exam: PRESENT: RRR, +S1, +S2, tachycardia GI/Abdominal exam: PRESENT: diminished bowel sounds - No bowel sounds detected., soft, tenderness - Diffusely especially across the lower abdomen.. ABSENT: distended Rectal exam: PRESENT: deferred Extremities exam: PRESENT: other - Left above-knee amputation Neurological exam: PRESENT: awake, oriented to person, oriented to place, oriented to situation. ABSENT: alert - Somewhat lethargic Psychiatric exam: PRESENT: appropriate affect - Affect reflects his significant discomfort. ABSENT: agitated, anxious Focused psych exam: ABSENT: delusional, restlessness Skin exam: PRESENT: other - Diaphoretic Results Laboratory Results: 10/04/18 06:00 10/04/18 06:00 10/03/18 10/03/18 10/03/18 16:00 16:00 17:00 WBC 16.0 H RBC 4.33 L Hgb 12.1 L Hct 36.2 L MCV 83 MCH 28.0 MCHC 33.5 RDW 13.4 Plt Count 389 Seg Neutrophils % Not Reportable Lymphocytes % Not Reportable Monocytes % Not Reportable Eosinophils % Not Reportable Basophils % Not Reportable Absolute Neutrophils Not Reportable Absolute Lymphocytes Not Reportable Absolute Monocytes Not Reportable Absolute Eosinophils Not Reportable Absolute Basophils Not Reportable Sodium 126.1 L Potassium 4.2 Chloride 94 L Carbon Dioxide 22 Anion Gap 10 BUN 13 Creatinine 1.35 H Est GFR ( Amer) > 60 Est GFR (Non-Af Amer) 55 L Glucose 118 H Calcium 9.1 Magnesium Total Bilirubin 1.1 AST 67 H ALT 28 Alkaline Phosphatase 318 H Total Protein 5.9 L Albumin 3.2 L Lipase 47.4 TSH Free T4 Free T3 pg/mL Urine Color YELLOW Urine Appearance CLEAR Urine pH 6.0 Ur Specific [place] 1.008 Urine Protein NEGATIVE Urine Glucose (UA) NEGATIVE Urine Ketones NEGATIVE Urine Blood SMALL H Urine Nitrite NEGATIVE Ur Leukocyte Esterase NEGATIVE Urine WBC (Auto) 0 10/04/18 10/04/18 10/04/18 06:00 06:00 06:00 WBC 18.4 H RBC 3.57 L Hgb 10.1 L Hct 29.5 L MCV 83 MCH 28.3 MCHC 34.2 RDW 13.3 Plt Count 366 Seg Neutrophils % Not Reportable Lymphocytes % Not Reportable Monocytes % Not Reportable Eosinophils % Not Reportable Basophils % Not Reportable Absolute Neutrophils Not Reportable Absolute Lymphocytes Not Reportable Absolute Monocytes Not Reportable Absolute Eosinophils Not Reportable Absolute Basophils Not Reportable Sodium 127.2 L Potassium 3.9 Chloride 95 L Carbon Dioxide 24 Anion Gap 8 BUN 16 Creatinine 1.46 H Est GFR ( Amer) > 60 Est GFR (Non-Af Amer) 50 L Glucose 112 H Calcium 8.9 Magnesium 1.6 Total Bilirubin AST ALT Alkaline Phosphatase Total Protein Albumin Lipase TSH 0.93 Free T4 1.20 Free T3 pg/mL 3.35 Urine Color Urine Appearance Urine pH Ur Specific [place] Urine Protein Urine Glucose (UA) Urine Ketones Urine Blood Urine Nitrite Ur Leukocyte Esterase Urine WBC (Auto) 10/03/18 10/03/18 10/04/18 16:00 16:00 06:00 Creatine Kinase 1278 H 756 H Troponin I < 0.012 Impressions: Abdomen/Pelvis CT 10/03/18 00:00 IMPRESSION: There is some fluid in the colon, raising the possibility of an enteritis. Findings as described. Cervical Spine CT 10/03/18 14:36 IMPRESSION: Anterolisthesis of C3 on C4. Multilevel degenerative disc disease. Facet arthropathy. Spondylosis. Prior ACDF. Cannot exclude right upper lobe pneumonia. Head CT 10/03/18 14:36 IMPRESSION: NORMAL BRAIN CT WITHOUT CONTRAST. EVIDENCE OF ACUTE STROKE: NO. Assessment and Plan - Diagnosis (1) Clostridium difficile enterocolitis Is this a current diagnosis for this admission?: Yes Plan: Patient be treated with supportive care utilizing IV fluids and will receive oral vancomycin 125 mg every 6 hours. Will use Nubain 20 mg IV every 4 hours on a scheduled basis for control of his abdominal cramping and discomfort as well as treatment of his chronic pain syndrome. 10/04/2018-the patient was not tolerating the oral vancomycin. I changed to rifaximin because of the ongoing nausea and vomiting started intravenous metronidazole. Once he can tolerate oral intake I will discontinue the IV antibiotics. He still has significant abdominal pain. (2) Syncope and collapse Is this a current diagnosis for this admission?: Yes Plan: Patient will be treated with IV fluids to replace his vascular volume and resolve his dehydration. He will be observed closely during his hospital course with initially only being allowed out of bed with assistance. 10/04/2018-the patient is still likely volume depleted. I have increased the rate of his IV fluids. We will monitor his intake and output. We also have to compensate for the vomiting. (3) Concussion Qualifiers: Encounter type: initial encounter Loss of consciousness presence/duration: with LOC of unspecified duration Qualified Code(s): S06.0X9A - Concussion with loss of consciousness of unspecified duration, initial encounter Is this a current diagnosis for this admission?: Yes Plan: Patient will be observed throughout his hospital course with neuro checks performed every 4 hours for the first 24 hours and on a as needed basis thereafter. 10/04/2018-the patient is complaining of a headache. His CT scan was negative however he likely has a headache associated with concussion. Continue to monitor. Hopefully the IV fluids will help. (4) Nausea and vomiting Qualifiers: Vomiting type: bilious vomiting Qualified Code(s): R11.14 - Bilious vomiting Is this a current diagnosis for this admission?: Yes Plan: The patient was having increased vomiting today. He was unable to take fluids or retain any of his medicines. Abdominal films showed dilated loops of bowel. The patient is likely developing an ileus from the enterocolitis. He may need a nasogastric tube. Because he requires significant amounts of pain medication I have ordered IV medications as well as oral. (5) Ileus Is this a current diagnosis for this admission?: Yes Plan: X-ray revealed dilated loops of bowel. If in fact the patient still has elements of ileus we will have a surgical consultation and he may require CT scanning. I did start scheduled doses of metoclopramide to see if this helps. (6) Acute kidney injury Is this a current diagnosis for this admission?: Yes (7) Tobacco use disorder, severe, dependence Is this a current diagnosis for this admission?: Yes Plan: Patient will be treated with a nicotine patch available to him as needed. Smoking cessation is advised and brief smoking cessation counseling is given. 10/04/2018-nicotine patch as needed (8) Chronic pain due to injury Is this a current diagnosis for this admission?: Yes Plan: 10/04/2018-the patient is on significant doses of narcotic analgesia including 50 mg of MS Contin extended release twice daily and oxycodone immediate release as needed. The Nubain was not controlling his pain. Despite the ileus there is a concern for withdrawal. I did order some MS Contin but intravenous Dilaudid to help with pain management. Once he is back on oral diet we will work back towards his regular regimen. He has had back surgery with significant hardware present. In addition to his back pain he has phantom pain in his left leg. 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 We will get him back on Lyrica. I have started at a slightly lower dose than his baseline and we will increase this back to baseline as he improves. He does have intravenous Dilaudid available. - Time Time Spent with patient: 15-24 minutes Medications reviewed and adjusted accordingly: Yes
[2018-10-04] MEDS: HYDROXYZINE PAMOATE 50 MG CAPSULE PO SCH (22:01)
[2018-10-04] MEDS: ALPRAZOLAM 0.5 MG TABLET PO PRN (22:03)
[2018-10-04] MEDS: MORPHINE SULFATE SR 30 MG TABLET PO SCH (22:03)
[2018-10-04 22:39] LABS: HEMATOCRIT 28.1 % (37.9-51.0); HEMOGLOBIN 9.6 g/dL (13.5-17.0); MEAN CORPUSCULAR HEMOGLOBIN 28.2 pg (27.0-33.4); MEAN CORPUSCULAR HGB CONC 34.3 g/dL (32.0-36.0); MEAN CORPUSCULAR VOLUME 82 fl (80-97); PLATELET COUNT 299 10^3/uL (150-450); RED BLOOD COUNT 3.42 10^6/uL (4.35-5.55); RED CELL DISTRIBUTION WIDTH 13.3 % (11.5-14.0); WHITE BLOOD COUNT 20.3 10^3/uL (4.0-10.5)
[2018-10-04 22:46] LABS: BLOOD UREA NITROGEN 16 mg/dL (7-20); CHLORIDE 95 mmol/L (98-107); CREATINE KINASE 326 U/L (55-170); GLUCOSE 113 mg/dL (75-110); POTASSIUM 3.9 mmol/L (3.6-5.0)
[2018-10-04 22:49] LABS: ANION GAP 10 (5-19); CARBON DIOXIDE 24 mmol/L (22-30)
[2018-10-04 23:02] LABS: ABSOLUTE LYMPHOCYTES# (MANUAL) 0.6 10^3/uL (0.5-4.7); ABSOLUTE MONOCYTES # (MANUAL) 0.8 10^3/uL (0.1-1.4); ABSOLUTE NEUTROPHILS# (MANUAL) 18.9 10^3/uL (1.7-8.2); BAND NEUTROPHILS % (MANUAL) 2 % (3-5); BASOPHILS % (MANUAL) 0 % (0-2); EOSINOPHILS % (MANUAL) 0 % (0-6); LYMPHOCYTES % (MANUAL) 3 % (13-45); MONOCYTES % (MANUAL) 4 % (3-13); SEGMENTED NEUTROPHILS % (MAN) 91 % (42-78); TOTAL CELLS COUNTED 100
[2018-10-04 23:03] LABS: PLATELET CLUMPS PRESENT; PLATELET COMMENT ADEQUATE; RBC MORPHOLOGY COMMENT NORMO-CYTIC/CHROMIC
[2018-10-05] MEDS: PREGABALIN 75 MG CAPSULE PO SCH ×4 (00:14→18:28)
[2018-10-05] MEDS: METOCLOPRAMIDE HCL INJ/PF 10 MG/2 ML SDV IV SCH ×4 (00:15→18:28)
[2018-10-05] MEDS: HYDROMORPHONE HCL INJ/PF 2 MG/ML AMPULE IV PRN ×3 (00:15→20:24)
[2018-10-05] MEDS: METRONIDAZOLE 500 MG/NS RTU 500 MG/100 ML RTUPB IV SCH ×3 (00:15→12:01)
[2018-10-05 06:04] LABS: ANION GAP 7 (5-19); BLOOD UREA NITROGEN 16 mg/dL (7-20); CALCIUM 8.9 mg/dL (8.4-10.2); CARBON DIOXIDE 25 mmol/L (22-30); CHLORIDE 99 mmol/L (98-107); GLUCOSE 104 mg/dL (75-110); POTASSIUM 3.8 mmol/L (3.6-5.0)
[2018-10-05 06:10] LABS: HEMATOCRIT 27.2 % (37.9-51.0); HEMOGLOBIN 9.3 g/dL (13.5-17.0); MEAN CORPUSCULAR HEMOGLOBIN 28.3 pg (27.0-33.4); MEAN CORPUSCULAR HGB CONC 34.3 g/dL (32.0-36.0); MEAN CORPUSCULAR VOLUME 83 fl (80-97); PLATELET COUNT 333 10^3/uL (150-450); RED CELL DISTRIBUTION WIDTH 13.1 % (11.5-14.0); WHITE BLOOD COUNT 18.1 10^3/uL (4.0-10.5)
[2018-10-05] MEDS: HEPARIN SOD (PORCINE) 5,000 UNIT/ML 1 ML SYRINGE SUBCUT SCH ×3 (06:35→21:07)
[2018-10-05 06:40] LABS: ABSOLUTE LYMPHOCYTES# (MANUAL) 0.7 10^3/uL (0.5-4.7); ABSOLUTE MONOCYTES # (MANUAL) 0.2 10^3/uL (0.1-1.4); ABSOLUTE NEUTROPHILS# (MANUAL) 17.2 10^3/uL (1.7-8.2); BAND NEUTROPHILS % (MANUAL) 1 % (3-5); BASOPHILS % (MANUAL) 0 % (0-2); EOSINOPHILS % (MANUAL) 0 % (0-6); LYMPHOCYTES % (MANUAL) 4 % (13-45); MONOCYTES % (MANUAL) 1 % (3-13); SEGMENTED NEUTROPHILS % (MAN) 94 % (42-78); TOTAL CELLS COUNTED 100
[2018-10-05 06:42] LABS: PLATELET COMMENT ADEQUATE; RBC MORPHOLOGY COMMENT NORMO-CYTIC/CHROMIC; TOXIC GRANULATION SLIGHT
[2018-10-05] MEDS: FAMOTIDINE 20 MG TABLET PO SCH ×2 (10:18→21:11)
[2018-10-05] MEDS: RIFAXIMIN 550 MG TABLET PO SCH ×2 (10:18→18:28)
[2018-10-05] MEDS: HYDROXYZINE PAMOATE 50 MG CAPSULE PO SCH ×2 (10:19→18:28)
[2018-10-05] MEDS: MORPHINE SULFATE SR 30 MG TABLET PO SCH ×2 (10:19→21:11)
[2018-10-05] MEDS: FLUTICASONE NASAL SPRAY 50 MCG/SPRY 120 SPRAY/16 GM NASL SCH (10:23)
[2018-10-05] MEDS: AMMONIUM LACTATE 12% LOTION 225GM BOTTLE TP SCH ×2 (10:23→18:29)
[2018-10-05] MEDS: NORMAL SALINE 1000 ML 1,000 ML IV PRN ×2 (12:02→18:27)
--- NOTE | 2018-10-05 16:55 | PDOC PROGRESS REPORT ---
Subjective Progress Note for:: 10/05/18 Reason For Visit: RECURRENT C DIFF ENTEROCOLITIS Physical Exam Vital Signs: Temp Pulse Resp BP Pulse Ox 98.9 F 84 16 130/72 H 96 10/05/18 03:38 10/05/18 03:38 10/05/18 03:38 10/05/18 03:38 10/05/18 03:38 Intake & Output 10/04/18 10/05/18 10/06/18 06:59 06:59 06:59 Intake Total 3100 2300 200 Output Total 400 Balance 3100 1900 200 Weight 119 kg 119 kg Results Laboratory Results: 10/05/18 05:23 10/05/18 05:23 10/04/18 10/04/18 10/04/18 16:40 22:24 22:24 WBC 20.3 H RBC 3.42 L Hgb 9.6 L Hct 28.1 L MCV 82 MCH 28.2 MCHC 34.3 RDW 13.3 Plt Count 299 Seg Neutrophils % Not Reportable Lymphocytes % Not Reportable Monocytes % Not Reportable Eosinophils % Not Reportable Basophils % Not Reportable Absolute Neutrophils Not Reportable Absolute Lymphocytes Not Reportable Absolute Monocytes Not Reportable Absolute Eosinophils Not Reportable Absolute Basophils Not Reportable Sodium 129.0 L Potassium 3.9 Chloride 95 L Carbon Dioxide 24 Anion Gap 10 BUN 16 Creatinine 1.08 Est GFR ( Amer) > 60 Est GFR (Non-Af Amer) > 60 Glucose 113 H Lactic Acid 1.1 Calcium 9.0 Magnesium 10/05/18 10/05/18 05:23 05:23 WBC 18.1 H RBC 3.30 L Hgb 9.3 L Hct 27.2 L MCV 83 MCH 28.3 MCHC 34.3 RDW 13.1 Plt Count 333 Seg Neutrophils % Not Reportable Lymphocytes % Not Reportable Monocytes % Not Reportable Eosinophils % Not Reportable Basophils % Not Reportable Absolute Neutrophils Not Reportable Absolute Lymphocytes Not Reportable Absolute Monocytes Not Reportable Absolute Eosinophils Not Reportable Absolute Basophils Not Reportable Sodium 131.0 L Potassium 3.8 Chloride 99 Carbon Dioxide 25 Anion Gap 7 BUN 16 Creatinine 1.11 Est GFR ( Amer) > 60 Est GFR (Non-Af Amer) > 60 Glucose 104 Lactic Acid Calcium 8.9 Magnesium 1.6 04/16/19 04/16/19 04/17/19 16:00 16:00 06:00 Creatine Kinase 1278 H 756 H Troponin I < 0.012 10/04/18 10/04/18 14:26 22:24 Creatine Kinase 516 H 326 H Troponin I Impressions: Abdomen/Pelvis CT 10/03/18 00:00 IMPRESSION: There is some fluid in the colon, raising the possibility of an enteritis. Findings as described. Cervical Spine CT 10/03/18 14:36 IMPRESSION: Anterolisthesis of C3 on C4. Multilevel degenerative disc disease. Facet arthropathy. Spondylosis. Prior ACDF. Cannot exclude right upper lobe pneumonia. Head CT 10/03/18 14:36 IMPRESSION: NORMAL BRAIN CT WITHOUT CONTRAST. EVIDENCE OF ACUTE STROKE: NO. KUB X-Ray 10/04/18 00:00 IMPRESSION: Possible mildly dilated small bowel loops in the left lower quadra nt. Gas and stool noted throughout the colon with transit of previously-seen oral contrast into the colon suggests non obstructive process. Assessment and Plan - Diagnosis (1) Clostridium difficile enterocolitis Is this a current diagnosis for this admission?: Yes (2) Syncope and collapse Is this a current diagnosis for this admission?: Yes (3) Concussion Qualifiers: Encounter type: initial encounter Loss of consciousness presence/duration: with LOC of unspecified duration Qualified Code(s): S06.0X9A - Concussion with loss of consciousness of unspecified duration, initial encounter Is this a current diagnosis for this admission?: Yes (4) Nausea and vomiting Qualifiers: Vomiting type: bilious vomiting Qualified Code(s): R11.14 - Bilious vomiting Is this a current diagnosis for this admission?: Yes (5) Ileus Is this a current diagnosis for this admission?: Yes (6) Acute kidney injury Is this a current diagnosis for this admission?: Yes (7) Tobacco use disorder, severe, dependence Is this a current diagnosis for this admission?: Yes (8) Chronic pain due to injury Is this a current diagnosis for this admission?: Yes (9) Phantom pain after amputation of lower extremity Is this a current diagnosis for this admission?: Yes
[2018-10-05] MEDS: ALPRAZOLAM 0.5 MG TABLET PO PRN (21:11)
[2018-10-06] MEDS: PREGABALIN 75 MG CAPSULE PO SCH ×4 (01:50→17:39)
[2018-10-06] MEDS: METOCLOPRAMIDE HCL INJ/PF 10 MG/2 ML SDV IV SCH ×3 (01:50→11:49)
[2018-10-06] MEDS: HYDROMORPHONE HCL INJ/PF 2 MG/ML AMPULE IV PRN ×5 (01:55→21:45)
[2018-10-06] MEDS: HEPARIN SOD (PORCINE) 5,000 UNIT/ML 1 ML SYRINGE SUBCUT SCH ×3 (05:48→21:01)
[2018-10-06] MEDS: NORMAL SALINE 1000 ML 1,000 ML IV PRN ×2 (06:19→17:40)
[2018-10-06 06:34] LABS: ABSOLUTE LYMPHOCYTES (AUTO) 1.6 10^3/uL (0.5-4.7); ABSOLUTE MONOCYTES (AUTO) 0.8 10^3/uL (0.1-1.4); BASOPHILS % (AUTO) 0.3 % (0-2); EOSINOPHILS % (AUTO) 0.3 % (0-6); HEMATOCRIT 24.1 % (37.9-51.0); HEMOGLOBIN 8.1 g/dL (13.5-17.0); LYMPHOCYTES % (AUTO) 13.1 % (13-45); MEAN CORPUSCULAR HEMOGLOBIN 27.7 pg (27.0-33.4); MEAN CORPUSCULAR HGB CONC 33.7 g/dL (32.0-36.0); MEAN CORPUSCULAR VOLUME 82 fl (80-97); MONOCYTES % (AUTO) 6.1 % (3-13); PLATELET COUNT 308 10^3/uL (150-450); RED BLOOD COUNT 2.93 10^6/uL (4.35-5.55); RED CELL DISTRIBUTION WIDTH 13.2 % (11.5-14.0); SEGMENTED NEUTROPHILS % (AUTO) 80.2 % (42-78); TOTAL CELLS COUNTED % (AUTO) 100 %; WHITE BLOOD COUNT 12.5 10^3/uL (4.0-10.5)
[2018-10-06 07:00] LABS: ANION GAP 7 (5-19); BLOOD UREA NITROGEN 16 mg/dL (7-20); CALCIUM 8.3 mg/dL (8.4-10.2); CARBON DIOXIDE 25 mmol/L (22-30); CHLORIDE 100 mmol/L (98-107); GLUCOSE 79 mg/dL (75-110); POTASSIUM 3.5 mmol/L (3.6-5.0); SODIUM 132.4 mmol/L (137-145)
[2018-10-06] MEDS: HYDROXYZINE PAMOATE 50 MG CAPSULE PO SCH ×2 (09:30→17:38)
[2018-10-06] MEDS: MORPHINE SULFATE SR 30 MG TABLET PO SCH ×2 (09:30→21:07)
[2018-10-06] MEDS: FAMOTIDINE 20 MG TABLET PO SCH (09:30)
[2018-10-06] MEDS: RIFAXIMIN 550 MG TABLET PO SCH ×2 (09:31→17:39)
[2018-10-06] MEDS: AMMONIUM LACTATE 12% LOTION 225GM BOTTLE TP SCH ×2 (09:31→17:58)
[2018-10-06] MEDS: FLUTICASONE NASAL SPRAY 50 MCG/SPRY 120 SPRAY/16 GM NASL SCH (09:31)
--- NOTE | 2018-10-06 16:17 | PDOC PROGRESS REPORT ---
Subjective Progress Note for:: 10/05/18 Subjective:: Feeling much better today. Awake and alert. No headache. He is not tremulous. He is taking oral intake without the bilious vomiting. Reason For Visit: RECURRENT C DIFF ENTEROCOLITIS Physical Exam Vital Signs: Temp Pulse Resp BP Pulse Ox 98.5 F 87 16 147/85 H 96 10/05/18 16:00 10/05/18 16:00 10/05/18 16:00 10/05/18 16:00 10/05/18 16:00 Intake & Output 10/04/18 10/05/18 10/06/18 06:59 06:59 06:59 Intake Total 3100 2300 1600 Output Total 400 1000 Balance 3100 1900 600 Weight 119 kg 119 kg General appearance: PRESENT: no acute distress, cooperative Head exam: PRESENT: atraumatic, normocephalic Respiratory exam: PRESENT: clear to auscultation harrison, symmetrical, unlabored. ABSENT: rales, rhonchi, wheezes Cardiovascular exam: PRESENT: RRR, +S1, +S2 GI/Abdominal exam: PRESENT: normal bowel sounds, soft. ABSENT: distended, tenderness Rectal exam: PRESENT: deferred Extremities exam: PRESENT: other - Left above-knee amputation. ABSENT: pedal edema Neurological exam: PRESENT: alert, awake, oriented to person, oriented to place, oriented to time, oriented to situation, CN II-XII grossly intact Psychiatric exam: PRESENT: appropriate affect, normal mood. ABSENT: agitated, anxious Focused psych exam: ABSENT: delusional, restlessness Results Laboratory Results: 10/05/18 05:23 10/05/18 05:23 10/04/18 10/04/18 10/05/18 22:24 22:24 05:23 WBC 20.3 H 18.1 H RBC 3.42 L 3.30 L Hgb 9.6 L 9.3 L Hct 28.1 L 27.2 L MCV 82 83 MCH 28.2 28.3 MCHC 34.3 34.3 RDW 13.3 13.1 Plt Count 299 333 Seg Neutrophils % Not Reportable Not Reportable Lymphocytes % Not Reportable Not Reportable Monocytes % Not Reportable Not Reportable Eosinophils % Not Reportable Not Reportable Basophils % Not Reportable Not Reportable Absolute Neutrophils Not Reportable Not Reportable Absolute Lymphocytes Not Reportable Not Reportable Absolute Monocytes Not Reportable Not Reportable Absolute Eosinophils Not Reportable Not Reportable Absolute Basophils Not Reportable Not Reportable Sodium 129.0 L Potassium 3.9 Chloride 95 L Carbon Dioxide 24 Anion Gap 10 BUN 16 Creatinine 1.08 Est GFR ( Amer) > 60 Est GFR (Non-Af Amer) > 60 Glucose 113 H Calcium 9.0 Magnesium 10/05/18 05:23 WBC RBC Hgb Hct MCV MCH MCHC RDW Plt Count Seg Neutrophils % Lymphocytes % Monocytes % Eosinophils % Basophils % Absolute Neutrophils Absolute Lymphocytes Absolute Monocytes Absolute Eosinophils Absolute Basophils Sodium 131.0 L Potassium 3.8 Chloride 99 Carbon Dioxide 25 Anion Gap 7 BUN 16 Creatinine 1.11 Est GFR ( Amer) > 60 Est GFR (Non-Af Amer) > 60 Glucose 104 Calcium 8.9 Magnesium 1.6 10/03/18 10/03/18 10/04/18 16:00 16:00 06:00 Creatine Kinase 1278 H 756 H Troponin I < 0.012 10/04/18 10/04/18 14:26 22:24 Creatine Kinase 516 H 326 H Troponin I Impressions: Abdomen/Pelvis CT 10/03/18 00:00 IMPRESSION: There is some fluid in the colon, raising the possibility of an enteritis. Findings as described. Cervical Spine CT 10/03/18 14:36 IMPRESSION: Anterolisthesis of C3 on C4. Multilevel degenerative disc disease. Facet arthropathy. Spondylosis. Prior ACDF. Cannot exclude right upper lobe pneumonia. Head CT 10/03/18 14:36 IMPRESSION: NORMAL BRAIN CT WITHOUT CONTRAST. EVIDENCE OF ACUTE STROKE: NO. KUB X-Ray 10/04/18 00:00 IMPRESSION: Possible mildly dilated small bowel loops in the left lower quadrant. Gas and stool noted throughout the colon with transit of previously- seen oral contrast into the colon suggests non obstructive process. Assessment and Plan - Diagnosis (1) Clostridium difficile enterocolitis Is this a current diagnosis for this admission?: Yes Plan: Patient be treated with supportive care utilizing IV fluids and will receive oral vancomycin 125 mg every 6 hours. Will use Nubain 20 mg IV every 4 hours on a scheduled basis for control of his abdominal cramping and discomfort as well as treatment of his chronic pain syndrome. 10/04/2018-the patient was not tolerating the oral vancomycin. I changed to rifaximin because of the ongoing nausea and vomiting started intravenous metronidazole. Once he can tolerate oral intake I will discontinue the IV antibiotics. He still has significant abdominal pain. 10/05/2018-patient is now able to take oral medications. I have started rifaximin and I will discontinue the IV metronidazole. (2) Syncope and collapse Is this a current diagnosis for this admission?: Yes Plan: Patient will be treated with IV fluids to replace his vascular volume and reso lve his dehydration. He will be observed closely during his hospital course with initially only being allowed out of bed with assistance. 10/04/2018-the patient is still likely volume depleted. I have increased the rate of his IV fluids. We will monitor his intake and output. We also have to compensate for the vomiting. 10/05/2018-he feels greatly improved today. We will continue IV fluids and see if he could take in enough liquids. (3) Concussion Qualifiers: Encounter type: initial encounter Loss of consciousness presence/duration: with LOC of unspecified duration Qualified Code(s): S06.0X9A - Concussion with loss of consciousness of unspecified duration, initial encounter Is this a current diagnosis for this admission?: Yes Plan: Patient will be observed throughout his hospital course with neuro checks performed every 4 hours for the first 24 hours and on a as needed basis thereafter. 10/04/2018-the patient is complaining of a headache. His CT scan was negative however he likely has a headache associated with concussion. Continue to monitor. Hopefully the IV fluids will help. 10/05/2018-he was having a bad headache yesterday likely from his fall with head trauma. No headache today. (4) Nausea and vomiting Qualifiers: Vomiting type: bilious vomiting Qualified Code(s): R11.14 - Bilious vomiting Is this a current diagnosis for this admission?: Yes Plan: The patient was having increased vomiting today. He was unable to take fluids or retain any of his medicines. Abdominal films showed dilated loops of bowel. The patient is likely developing an ileus from the enterocolitis. He may need a nasogastric tube. Because he requires significant amounts of pain medication I have ordered IV medications as well as oral. 10/05/2018-we did initiate a trial of Reglan IV. This seems to have helped. Antiemetics available as needed. (5) Ileus Is this a current diagnosis for this admission?: Yes Plan: X-ray revealed dilated loops of bowel. If in fact the patient still has elements of ileus we will have a surgical consultation and he may require CT scanning. I did start scheduled doses of metoclopramide to see if this helps. 10/05/2018-appears to be resolved. (6) Acute kidney injury Is this a current diagnosis for this admission?: Yes Plan: Patient receive IV fluids to replenish his vascular volume and correct his dehydration. His renal functions will be followed on a regular basis throughout his hospital course. 10/05/2018-resolved (7) Tobacco use disorder, severe, dependence Is this a current diagnosis for this admission?: Yes Plan: Patient will be treated with a nicotine patch available to him as needed. Smoking cessation is advised and brief smoking cessation counseling is given. 10/04/2018-nicotine patch as needed 10/05/2018-continue nicotine patch (8) Chronic pain due to injury Is this a current diagnosis for this admission?: Yes Plan: 10/04/2018-the patient is on significant doses of narcotic analgesia including 50 mg of MS Contin extended release twice daily and oxycodone immediate release as needed. The Nubain was not controlling his pain. Despite the ileus there is a concern for withdrawal. I did order some MS Contin but intravenous Dilaudid to help with pain management. Once he is back on oral diet we will work back towards his regular regimen. He has had back surgery with significant hardware present. In addition to his back pain he has phantom pain in his left leg. 10/05/2018-he feels much better back on most of his pain medications. I explained that with his nausea and vomiting I had to make some changes in dosing. We will work her way back to his baseline regimen. 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 We will get him back on Lyrica. I have started at a slightly lower dose than his baseline and we will increase this back to baseline as he improves. He does have intravenous Dilaudid available. 10/05/2018-continue Lyrica. - Time Time Spent with patient: 25-34 minutes Medications reviewed and adjusted accordingly: Yes Anticipated discharge: Home
--- NOTE | 2018-10-06 16:25 | PDOC PROGRESS REPORT ---
Subjective Progress Note for:: 10/06/18 Subjective:: The patient does not feel as well today. He is reporting some dyspepsia. Reason For Visit: RECURRENT C DIFF ENTEROCOLITIS Physical Exam Vital Signs: Temp Pulse Resp BP Pulse Ox 98.3 F 77 16 163/87 H 97 10/06/18 12:00 10/06/18 12:00 10/06/18 12:00 10/06/18 12:00 10/06/18 12:00 Intake & Output 10/05/18 10/06/18 10/07/18 06:59 06:59 06:59 Intake Total 2300 2800 1000 Output Total 400 1300 Balance 1900 1500 1000 Weight 119 kg 119 kg General appearance: PRESENT: cooperative, mild distress, well-developed Head exam: PRESENT: atraumatic, normocephalic Mouth exam: PRESENT: moist, tongue midline Respiratory exam: PRESENT: rales, symmetrical, unlabored. ABSENT: rhonchi, wheezes Cardiovascular exam: PRESENT: RRR, +S1, +S2 GI/Abdominal exam: PRESENT: normal bowel sounds, soft. ABSENT: distended, tenderness Rectal exam: PRESENT: deferred Extremities exam: PRESENT: other - Left above-knee amputation. ABSENT: pedal edema Neurological exam: PRESENT: alert, awake, oriented to person, oriented to place, oriented to time, oriented to situation, CN II-XII grossly intact Psychiatric exam: PRESENT: flat affect. ABSENT: agitated, anxious Focused psych exam: ABSENT: delusional, restlessness Results Laboratory Results: 10/06/18 05:50 10/06/18 05:50 10/06/18 10/06/18 05:50 05:50 WBC 12.5 H RBC 2.93 L Hgb 8.1 L Hct 24.1 L MCV 82 MCH 27.7 MCHC 33.7 RDW 13.2 Plt Count 308 Seg Neutrophils % 80.2 H Lymphocytes % 13.1 Monocytes % 6.1 Eosinophils % 0.3 Basophils % 0.3 Absolute Neutrophils 10.0 H Absolute Lymphocytes 1.6 Absolute Monocytes 0.8 Absolute Eosinophils 0.0 Absolute Basophils 0.0 Sodium 132.4 L Potassium 3.5 L Chloride 100 Carbon Dioxide 25 Anion Gap 7 BUN 16 Creatinine 0.91 Est GFR ( Amer) > 60 Est GFR (Non-Af Amer) > 60 Glucose 79 Calcium 8.3 L Magnesium 1.7 10/03/18 10/03/18 10/04/18 16:00 16:00 06:00 Creatine Kinase 1278 H 756 H Troponin I < 0.012 10/04/18 10/04/18 14:26 22:24 Creatine Kinase 516 H 326 H Troponin I Impressions: Abdomen/Pelvis CT 10/03/18 00:00 IMPRESSION: There is some fluid in the colon, raising the possibility of an enteritis. Findings as described. Cervical Spine CT 10/03/18 14:36 IMPRESSION: Anterolisthesis of C3 on C4. Multilevel degenerative disc disease. Facet arthropathy. Spondylosis. Prior ACDF. Cannot exclude right upper lobe pneumonia. Head CT 10/03/18 14:36 IMPRESSION: NORMAL BRAIN CT WITHOUT CONTRAST. EVIDENCE OF ACUTE STROKE: NO. KUB X-Ray 10/04/18 00:00 IMPRESSION: Possible mildly dilated small bowel loops in the left lower quadrant. Gas and stool noted throughout the colon with transit of previously- seen oral contrast into the colon suggests non obstructive process. Assessment and Plan - Diagnosis (1) Clostridium difficile enterocolitis Is this a current diagnosis for this admission?: Yes Plan: Patient be treated with supportive care utilizing IV fluids and will receive oral vancomycin 125 mg every 6 hours. Will use Nubain 20 mg IV every 4 hours on a scheduled basis for control of his abdominal cramping and discomfort as well as treatment of his chronic pain syndrome. 10/04/2018-the patient was not tolerating the oral vancomycin. I changed to rifaximin because of the ongoing nausea and vomiting started intravenous metronidazole. Once he can tolerate oral intake I will discontinue the IV antib iotics. He still has significant abdominal pain. 10/05/2018-patient is now able to take oral medications. I have started rifaximin and I will discontinue the IV metronidazole. 10/06/2018-complete rifaximin as ordered. Once again I explained that the patient cannot be discharged if there is a chance that he still has C. difficile in his stool. I also explained that we do not use loperamide in this situation. (2) Syncope and collapse Is this a current diagnosis for this admission?: Yes Plan: Patient will be treated with IV fluids to replace his vascular volume and resolve his dehydration. He will be observed closely during his hospital course with initially only being allowed out of bed with assistance. 10/04/2018-the patient is still likely volume depleted. I have increased the rate of his IV fluids. We will monitor his intake and output. We also have to compensate for the vomiting. 10/05/2018-he feels greatly improved today. We will continue IV fluids and see if he could take in enough liquids. 10/06/2018-resolved (3) Concussion Qualifiers: Encounter type: initial encounter Loss of consciousness presence/duration: with LOC of unspecified duration Qualified Code(s): S06.0X9A - Concussion with loss of consciousness of unspecified duration, initial encounter Is this a current diagnosis for this admission?: Yes Plan: Patient will be observed throughout his hospital course with neuro checks performed every 4 hours for the first 24 hours and on a as needed basis thereafter. 10/04/2018-the patient is complaining of a headache. His CT scan was negative h owever he likely has a headache associated with concussion. Continue to monitor. Hopefully the IV fluids will help. 10/05/2018-he was having a bad headache yesterday likely from his fall with head trauma. No headache today. 10/06/2018-symptoms appear to have resolved. No headache. (4) Nausea and vomiting Qualifiers: Vomiting type: bilious vomiting Qualified Code(s): R11.14 - Bilious vomiting Is this a current diagnosis for this admission?: Yes Plan: The patient was having increased vomiting today. He was unable to take fluids or retain any of his medicines. Abdominal films showed dilated loops of bowel. The patient is likely developing an ileus from the enterocolitis. He may need a nasogastric tube. Because he requires significant amounts of pain medication I have ordered IV medications as well as oral. 10/05/2018-we did initiate a trial of Reglan IV. This seems to have helped. Antiemetics available as needed. 10/06/2018-the patient has some dyspepsia and his appetite has declined from yesterday. I will reinstitute the metoclopramide. I will order it 5 mg by mouth before meals and at bedtime. (5) Ileus Is this a current diagnosis for this admission?: Yes Plan: X-ray revealed dilated loops of bowel. If in fact the patient still has elements of ileus we will have a surgical consultation and he may require CT scanning. I did start scheduled doses of metoclopramide to see if this helps. 10/05/2018-appears to be resolved. 10/06/2018-resolved (6) Acute kidney injury Is this a current diagnosis for this admission?: Yes Plan: Patient receive IV fluids to replenish his vascular volume and correct his dehydration. His renal functions will be followed on a regular basis throughout his hospital course. 10/05/2018-resolved (7) Tobacco use disorder, severe, dependence Is this a current diagnosis for this admission?: Yes Plan: Patient will be treated with a nicotine patch available to him as needed. Smoking cessation is advised and brief smoking cessation counseling is given. 10/04/2018-nicotine patch as needed 10/05/2018-continue nicotine patch 10/06/2018-nicotine patch is ordered. The patient reported that he is done with smoking. We discussed the benefits to stopping including better healing and decrease risk for lung and heart disease. His is supportive. (8) Chronic pain due to injury Is this a current diagnosis for this admission?: Yes Plan: 10/04/2018-the patient is on significant doses of narcotic analgesia including 50 mg of MS Contin extended release twice daily and oxycodone immediate release as needed. The Nubain was not controlling his pain. Despite the ileus there is a concern for withdrawal. I did order some MS Contin but intravenous Dilaudid to help with pain management. Once he is back on oral diet we will work back towards his regular regimen. He has had back surgery with significant hardware present. In addition to his back pain he has phantom pain in his left leg. 10/05/2018-he feels much better back on most of his pain medications. I explained that with his nausea and vomiting I had to make some changes in dosing. We will work her way back to his baseline regimen. 10/06/2018-continue current regimen. Some of his medications are on the formulary. He can return to those after discharge. 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 We will get him back on Lyrica. I have started at a slightly lower dose than his baseline and we will increase this back to baseline as he improves. He does have intravenous Dilaudid available. 10/05/2018-continue Lyrica. 10/06/2018-improved. Continue Lyrica. - Time Time Spent with patient: 25-34 minutes Smoking Cessation Education: 3 to 10 minutes Medications reviewed and adjusted accordingly: Yes Anticipated discharge: Home
[2018-10-06] MEDS: PANTOPRAZOLE SODIUM 40 MG TABLET.DR PO SCH (17:38)
[2018-10-06] MEDS: METOCLOPRAMIDE HCL 10 MG TABLET PO SCH (21:06)
[2018-10-06] MEDS: ALPRAZOLAM 0.5 MG TABLET PO PRN (21:06)
[2018-10-06] MEDS: POTASSIUM CHLORIDE 10 MEQ CAPSULE.ER PO SCH (21:06)
[2018-10-07] MEDS: PREGABALIN 75 MG CAPSULE PO SCH ×4 (03:50→18:38)
[2018-10-07] MEDS: PANTOPRAZOLE SODIUM 40 MG TABLET.DR PO SCH ×2 (06:03→18:38)
[2018-10-07] MEDS: HYDROMORPHONE HCL INJ/PF 2 MG/ML AMPULE IV PRN ×4 (06:03→23:58)
[2018-10-07] MEDS: ONDANSETRON HCL INJ/PF 4 MG/2 ML SDV IV PRN ×2 (06:05→12:52)
[2018-10-07] MEDS: NORMAL SALINE 1000 ML 1,000 ML IV PRN (06:14)
[2018-10-07] MEDS: HEPARIN SOD (PORCINE) 5,000 UNIT/ML 1 ML SYRINGE SUBCUT SCH ×2 (06:57→13:37)
[2018-10-07 07:39] LABS: ABSOLUTE BASOPHILS # (AUTO) 0.1 10^3/uL (0.0-0.2); ABSOLUTE EOSINOPHILS # (AUTO) 0.2 10^3/uL (0.0-0.6); ABSOLUTE MONOCYTES (AUTO) 0.7 10^3/uL (0.1-1.4); ABSOLUTE NEUT (AUTO) 8.7 10^3/uL (1.7-8.2); BASOPHILS % (AUTO) 0.8 % (0-2); EOSINOPHILS % (AUTO) 1.8 % (0-6); HEMATOCRIT 25.6 % (37.9-51.0); HEMOGLOBIN 8.8 g/dL (13.5-17.0); LYMPHOCYTES % (AUTO) 9.3 % (13-45); MEAN CORPUSCULAR HEMOGLOBIN 28.6 pg (27.0-33.4); MEAN CORPUSCULAR HGB CONC 34.4 g/dL (32.0-36.0); MEAN CORPUSCULAR VOLUME 83 fl (80-97); MONOCYTES % (AUTO) 6.9 % (3-13); PLATELET COUNT 325 10^3/uL (150-450); RED BLOOD COUNT 3.09 10^6/uL (4.35-5.55); RED CELL DISTRIBUTION WIDTH 13.2 % (11.5-14.0); SEGMENTED NEUTROPHILS % (AUTO) 81.2 % (42-78); TOTAL CELLS COUNTED % (AUTO) 100 %; WHITE BLOOD COUNT 10.7 10^3/uL (4.0-10.5)
[2018-10-07 07:58] LABS: ANION GAP 6 (5-19); BLOOD UREA NITROGEN 12 mg/dL (7-20); CALCIUM 8.2 mg/dL (8.4-10.2); CARBON DIOXIDE 24 mmol/L (22-30); CHLORIDE 104 mmol/L (98-107); GLUCOSE 74 mg/dL (75-110); POTASSIUM 3.7 mmol/L (3.6-5.0); SODIUM 133.7 mmol/L (137-145)
[2018-10-07] MEDS: METOCLOPRAMIDE HCL 10 MG TABLET PO SCH ×2 (08:25→10:46)
[2018-10-07] MEDS: FLUTICASONE NASAL SPRAY 50 MCG/SPRY 120 SPRAY/16 GM NASL SCH (10:43)
[2018-10-07] MEDS: AMMONIUM LACTATE 12% LOTION 225GM BOTTLE TP SCH ×2 (10:43→18:38)
[2018-10-07] MEDS: POTASSIUM CHLORIDE 10 MEQ CAPSULE.ER PO SCH (10:46)
[2018-10-07] MEDS: ESCITALOPRAM OXALATE 10 MG TABLET PO SCH (10:46)
[2018-10-07] MEDS: HYDROXYZINE PAMOATE 50 MG CAPSULE PO SCH (10:46)
[2018-10-07] MEDS: MORPHINE SULFATE SR 30 MG TABLET PO SCH (10:47)
[2018-10-07] MEDS: RIFAXIMIN 550 MG TABLET PO SCH ×2 (10:48→18:38)
[2018-10-07] MEDS ORDERED: DEXTROSE 50%-WATER 25 GM/50 ML DISP.SYRIN IV PRN ×2 (13:37)
[2018-10-07] MEDS ORDERED: DEXTROSE 40% GEL 15 GM TUBE PO PRN ×2 (13:37)
[2018-10-07] MEDS ORDERED: GLUCAGON,HUMAN RECOMB 1 MG INJ SUBCUT PRN (13:37)
[2018-10-07] MEDS ORDERED: LORAZEPAM INJ 2 MG/1 ML VIAL IV PRN (13:48)
[2018-10-07] MEDS ORDERED: ONDANSETRON HCL INJ/PF 4 MG/2 ML SDV IV PRN (13:50)
[2018-10-07] MEDS ORDERED: DEXTROSE 5%-NORMAL SALINE 1,000 ML with POTASSIUM CHLORIDE 10 MEQ IV PRN ×2 (13:54)
--- NOTE | 2018-10-07 14:37 | PDOC PROGRESS REPORT ---
Subjective Progress Note for:: 10/07/18 Subjective:: The patient is doing quite poorly again today. He is having bilious vomiting. It is worse when he tries to eat or drink. He is still stooling. He feels miserable, worse than yesterday. Reason For Visit: RECURRENT C DIFF ENTEROCOLITIS Physical Exam Vital Signs: Temp Pulse Resp BP Pulse Ox 98.1 F 83 17 159/85 H 96 10/07/18 11:26 10/07/18 11:26 10/07/18 11:26 10/07/18 11:26 10/07/18 11:26 Intake & Output 10/06/18 10/07/18 10/08/18 06:59 06:59 06:59 Intake Total 2800 3080 Output Total 1300 1875 Balance 1500 1205 Weight 119 kg 119 kg General appearance: PRESENT: cooperative, severe distress, well-developed Head exam: PRESENT: atraumatic, normocephalic Respiratory exam: PRESENT: clear to auscultation harrison, symmetrical. ABSENT: accessory muscle use, rales, rhonchi, tachypnea, wheezes Cardiovascular exam: PRESENT: RRR, +S1, +S2 GI/Abdominal exam: PRESENT: distended, firm, tenderness - Across the abdomen.. ABSENT: normal bowel sounds - High-pitched bowel sounds. Neurological exam: PRESENT: alert, awake, oriented to person, oriented to place, oriented to time, oriented to situation Psychiatric exam: PRESENT: other - Affect reflects his significant discomfort. ABSENT: agitated, anxious Results Laboratory Results: 10/07/18 07:12 10/07/18 07:12 10/07/18 10/07/18 07:12 07:12 WBC 10.7 H RBC 3.09 L Hgb 8.8 L Hct 25.6 L MCV 83 MCH 28.6 MCHC 34.4 RDW 13.2 Plt Count 325 Seg Neutrophils % 81.2 H Lymphocytes % 9.3 L Monocytes % 6.9 Eosinophils % 1.8 Basophils % 0.8 Absolute Neutrophils 8.7 H Absolute Lymphocytes 1.0 Absolute Monocytes 0.7 Absolute Eosinophils 0.2 Absolute Basophils 0.1 Sodium 133.7 L Potassium 3.7 Chloride 104 Carbon Dioxide 24 Anion Gap 6 BUN 12 Creatinine 0.83 Est GFR ( Amer) > 60 Est GFR (Non-Af Amer) > 60 Glucose 74 L Calcium 8.2 L Magnesium 1.7 10/03/18 10/03/18 10/04/18 16:00 16:00 06:00 Creatine Kinase 1278 H 756 H Troponin I < 0.012 10/04/18 10/04/18 14:26 22:24 Creatine Kinase 516 H 326 H Troponin I Impressions: Abdomen/Pelvis CT 10/03/18 00:00 IMPRESSION: There is some fluid in the colon, raising the possibility of an enteritis. Findings as described. Cervical Spine CT 10/03/18 14:36 IMPRESSION: Anterolisthesis of C3 on C4. Multilevel degenerative disc disease. Facet arthropathy. Spondylosis. Prior ACDF. Cannot exclude right upper lobe pneumonia. Head CT 10/03/18 14:36 IMPRESSION: NORMAL BRAIN CT WITHOUT CONTRAST. EVIDENCE OF ACUTE STROKE: NO. KUB X-Ray 10/04/18 00:00 IMPRESSION: Possible mildly dilated small bowel loops in the left lower quadrant. Gas and stool noted throughout the colon with transit of previously- seen oral contrast into the colon suggests non obstructive process. Assessment and Plan - Diagnosis (1) Clostridium difficile enterocolitis Is this a current diagnosis for this admission?: Yes Plan: Patient be treated with supportive care utilizing IV fluids and will receive oral vancomycin 125 mg every 6 hours. Will use Nubain 20 mg IV every 4 hours on a scheduled basis for control of his abdominal cramping and discomfort as well as treatment of his chronic pain syndrome. 10/04/2018-the patient was not tolerating the oral vancomycin. I changed to rifaximin because of the ongoing nausea and vomiting started intravenous metronidazole. Once he can tolerate oral intake I will discontinue the IV antibiotics. He still has significant abdominal pain. 10/05/2018-patient is now able to take oral medications. I have started rifaximin and I will discontinue the IV metronidazole. 10/06/2018-complete rifaximin as ordered. Once again I explained that the patient cannot be discharged if there is a chance that he still has C. difficile in his stool. I also explained that we do not use loperamide in this situation. 10/07/2018-he is now distended and most likely has recurrent ileus. He did b shahriar when he was on rifaximin and IV metronidazole. I restarted the IV metronidazole and will continue the rifaximin. (2) Syncope and collapse Is this a current diagnosis for this admission?: Yes Plan: Patient will be treated with IV fluids to replace his vascular volume and resolve his dehydration. He will be observed closely during his hospital course with initially only being allowed out of bed with assistance. 10/04/2018-the patient is still likely volume depleted. I have increased the rate of his IV fluids. We will monitor his intake and output. We also have to compensate for the vomiting. 10/05/2018-he feels greatly improved today. We will continue IV fluids and see if he could take in enough liquids. 10/06/2018-resolved (3) Concussion Qualifiers: Encounter type: initial encounter Loss of consciousness presence/duration: with LOC of unspecified duration Qualified Code(s): S06.0X9A - Concussion with loss of consciousness of unspecified duration, initial encounter Is this a current diagnosis for this admission?: Yes Plan: Patient will be observed throughout his hospital course with neuro checks performed every 4 hours for the first 24 hours and on a as needed basis thereafter. 10/04/2018-the patient is complaining of a headache. His CT scan was negative however he likely has a headache associated with concussion. Continue to monitor. Hopefully the IV fluids will help. 10/05/2018-he was having a bad headache yesterday likely from his fall with head trauma. No headache today. 10/06/2018-symptoms appear to have resolved. No headache. 10/07/2018-he has recurrent headache today but it may likely be from the vomiting and pain (4) Nausea and vomiting Qualifiers: Vomiting type: bilious vomiting Qualified Code(s): R11.14 - Bilious vomiting Is this a current diagnosis for this admission?: Yes Plan: The patient was having increased vomiting today. He was unable to take fluids or retain any of his medicines. Abdominal films showed dilated loops of bowel. The patient is likely developing an ileus from the enterocolitis. He may need a nasogastric tube. Because he requires significant amounts of pain medication I have ordered IV medications as well as oral. 10/05/2018-we did initiate a trial of Reglan IV. This seems to have helped. Antiemetics available as needed. 10/06/2018-the patient has some dyspepsia and his appetite has declined from yesterday. I will reinstitute the metoclopramide. I will order it 5 mg by mouth before meals and at bedtime. 10/07/2018-the patient did better on IV Reglan. The abdomen is distended again. I have increased the Reglan to 10 mg IV every 6 hours. I also increase the Zofran to 8 mg. (5) Ileus Is this a current diagnosis for this admission?: Yes Plan: X-ray revealed dilated loops of bowel. If in fact the patient still has elements of ileus we will have a surgical consultation and he may require CT scanning. I did start scheduled doses of metoclopramide to see if this helps. 10/05/2018-appears to be resolved. 10/06/2018-resolved 10/07/2018-the patient's abdomen is distended and firm. He has high-pitched bowel sounds. We are inserting a nasogastric tube in I will place it on suction to empty his stomach. I have ordered repeat CT scan of the abdomen and pelvis with IV and oral contrast. We can administer the contrast of the NG tube and the patient may tolerate it better. He is back on Reglan but by IV. (6) Acute kidney injury Is this a current diagnosis for this admission?: Yes Plan: Patient receive IV fluids to replenish his vascular volume and correct his dehydration. His renal functions will be followed on a regular basis throughout his hospital course. 10/05/2018-resolved 10/07/2018-now that he will be n.p.o. I have resumed IV fluid (7) Tobacco use disorder, severe, dependence Is this a current diagnosis for this admission?: Yes Plan: Patient will be treated with a nicotine patch available to him as needed. Smoking cessation is advised and brief smoking cessation counseling is given. 10/04/2018-nicotine patch as needed 10/05/2018-continue nicotine patch 10/06/2018-nicotine patch is ordered. The patient reported that he is done with smoking. We discussed the benefits to stopping including better healing and decrease risk for lung and heart disease. His is supportive. 10/07/2018-nicotine patch available (8) Chronic pain due to injury Is this a current diagnosis for this admission?: Yes Plan: 10/04/2018-the patient is on significant doses of narcotic analgesia including 50 mg of MS Contin extended release twice daily and oxycodone immediate release as needed. The Nubain was not controlling his pain. Despite the ileus there is a concern for withdrawal. I did order some MS Contin but intravenous Dilaudid to help with pain management. Once he is back on oral diet we will work back towards his regular regimen. He has had back surgery with significant hardware present. In addition to his back pain he has phantom pain in his left leg. 10/05/2018-he feels much better back on most of his pain medications. I explained that with his nausea and vomiting I had to make some changes in dosing. We will work her way back to his baseline regimen. 10/06/2018-continue current regimen. Some of his medications are on the formulary. He can return to those after discharge. 10/07/2018-he is not on all of his current home regimen but he should have ad equate coverage with intravenous as needed medications. 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 We will get him back on Lyrica. I have started at a slightly lower dose than his baseline and we will increase this back to baseline as he improves. He does have intravenous Dilaudid available. 10/05/2018-continue Lyrica. 10/06/2018-improved. Continue Lyrica. 10/07/2018-as above (10) Anemia Qualifiers: Anemia type: other cause Other causes of anemia: other cause, not classified Qualified Code(s): D64.89 - Other specified anemias Is this a current diagnosis for this admission?: Yes Plan: 10/07/2018-the patient's hemoglobin has been going down. Yesterday it was 8.1. Today it is slightly improved at 8.8. It could be an acute change related to his acute illness. This is a recurrent episode of Clostridium difficile and his iron absorption may have been suboptimal over the last weeks to months. Continue to monitor. If his hemoglobin drops below 8 consider transfusion. - Time Time Spent with patient: 35 or more minutes Medications reviewed and adjusted accordingly: Yes - Inpatient Certification Based on my medical assessment, after consideration of the patient's comorbidities, presenting symptoms, or acuity I expect that the services needed warrant INPATIENT care.: Yes I certify that my determination is in accordance with my understanding of Medicare's requirements for reasonable and necessary INPATIENT services [42 CFR 412.3e].: Yes Medical Necessity: Significant Comorbidiites Make Outpatient Treatment Too Risky, Need For IV Fluids, Need for Pain Control, Need for IV Antibiotics
--- NOTE | 2018-10-07 15:01 | RADIOLOGY REPORT (SQ) ---
EXAM DESCRIPTION: KUB/ABDOMEN (SINGLE VIEW) COMPLETED DATE/TIME: 10/07/2018 2:52 pm REASON FOR STUDY: Ileus COMPARISON: 10/04/2018 NUMBER OF VIEWS: One view. TECHNIQUE: Erect radiographic image of the abdomen acquired. LIMITATIONS: None. FINDINGS: BOWEL GAS PATTERN: Dilated bowel loops. Appears to be the colon. Limited visualization of only the upper abdomen. No free air. OTHER: No other significant finding. IMPRESSION: Limited evaluation with only the upper abdomen. No free air. Dilated bowel which appea rs to be the large colon. TECHNICAL DOCUMENTATION: JOB ID: [id number] [employer]- All Rights Reserved Reading location - IP/workstation name: [email or web address]
[2018-10-07] MEDS ORDERED: METRONIDAZOLE 500 MG/NS RTU 500 MG/100 ML RTUPB IV SCH (18:00)
[2018-10-07] MEDS: METOCLOPRAMIDE HCL INJ/PF 10 MG/2 ML SDV IV SCH (18:20)
[2018-10-07] MEDS: METRONIDAZOLE 500 MG/NS RTU 500 MG/100 ML RTUPB IV SCH (18:20)
--- NOTE | 2018-10-07 19:24 | RADIOLOGY REPORT (SQ) ---
EXAM DESCRIPTION: CHEST SINGLE VIEW COMPLETED DATE/TIME: 10/07/2018 7:13 pm REASON FOR STUDY: Check NG tube placement COMPARISON: 07/03/2018 EXAM PARAMETERS: NUMBER OF VIEWS: One view. TECHNIQUE: Single frontal radiographic view of the lower chest and upper abdomen acquired. RADIATION DOSE: NA LIMITATIONS: Portable technique and exposure as well as positioning. FINDINGS: LUNGS AND PLEURA: The lung apices are excluded from view. There are some ill-defined opac ities in the lung bases bilaterally which may represent scarring but are incompletely evaluated on th is exam. MEDIASTINUM AND HILAR STRUCTURES: Not evaluated HEART AND VASCULAR STRUCTURES: Not evaluated BONES: No acute findings. HARDWARE: None in the chest. OTHER: There is suggestion of an enteric tube present, however the tube is not clearly visualized. IMPRESSION: Markedly limited examination due to positioning and exposure. Recommend repeating exami nation with attention to technique as the enteric tube cannot be clearly identified. TECHNICAL DOCUMENTATION: JOB ID: [id number] [employer]- All Rights Reserved Reading location - IP/workstation name: [email or web address]
--- NOTE | 2018-10-08 00:02 | RADIOLOGY REPORT (SQ) ---
EXAM DESCRIPTION: XR CHEST 1 VIEW COMPLETED DATE/TME: 10/07/2018 00:00 CLINICAL HISTORY: 57 years, Male, NG TUBE PLACEMENT COMPARISON: Prior chest x-ray from today's date NUMBER OF VIEWS: 3 TECHNIQUE: 3 frontal views of the chest LIMITATIONS: None. FINDINGS: Stable cardiomegaly. Post surgical change cervical spine. Enteric tube with the distal tip partially seen in the proximal stomach. No pneumothorax. Patchy bibasilar infiltrates. Osteopenia IMPRESSION: Enteric tube with the tip partially seen in the proximal stomach. copyright 2010 [employer]- All Rights Reserved
[2018-10-08] MEDS: HEPARIN SOD (PORCINE) 5,000 UNIT/ML 1 ML SYRINGE SUBCUT SCH ×4 (00:16→21:59)
[2018-10-08] MEDS: MORPHINE SULFATE SR 30 MG TABLET PO SCH ×3 (00:17→21:58)
[2018-10-08] MEDS: METRONIDAZOLE 500 MG/NS RTU 500 MG/100 ML RTUPB IV SCH ×4 (01:37→18:01)
[2018-10-08] MEDS: PREGABALIN 75 MG CAPSULE PO SCH ×4 (01:38→18:00)
[2018-10-08] MEDS: METOCLOPRAMIDE HCL INJ/PF 10 MG/2 ML SDV IV SCH ×4 (01:38→18:01)
[2018-10-08] MEDS: PANTOPRAZOLE SODIUM 40 MG TABLET.DR PO SCH ×2 (06:12→18:00)
[2018-10-08] MEDS: HYDROMORPHONE HCL INJ/PF 2 MG/ML AMPULE IV PRN ×3 (08:19→18:02)
[2018-10-08] MEDS: POTASSI CL 20 MEQ/D5NS 1L 1000 ML IV PRN ×2 (08:20→21:57)
[2018-10-08] MEDS: AMMONIUM LACTATE 12% LOTION 225GM BOTTLE TP SCH ×2 (10:00→18:01)
--- NOTE | 2018-10-08 10:31 | RADIOLOGY REPORT (SQ) ---
EXAM DESCRIPTION: CT ABD/PELVIS WITH IV ORAL COMPLETED DATE/TIME: 10/08/2018 10:19 am REASON FOR STUDY: Abdominal pain nausea vomiting distention COMPARISON: 10/03/2018 TECHNIQUE: CT scan of the abdomen and pelvis performed with intravenous and oral contrast using zuri baldomero scanning technique with dynamic intravenous contrast injection. Images reviewed with lung, soft t issue, and bone windows. Reconstructed coronal and sagittal MPR images reviewed. Delayed images for e valuation of the urinary system also acquired. All images stored on PACS. All CT scanners at this facility use dose modulation, iterative reconstruction, and/or weight based d osing when appropriate to reduce radiation dose to as low as reasonably achievable (ALARA). [facility]: Dose Right [facility]: CareDose [facility]: Dose Right [facility]: Teradose 4D [facility]: Xceedium CONTRAST TYPE AND DOSE: contrast/concentration: Isovue 350.00 mg/ml; Total Contrast Delivered: 100.0 ml; Total Saline Delivered: 72.0 ml RENAL FUNCTION: Creatinine 0.83 RADIATION DOSE: CT Rad equipment meets quality standard of care and radiation dose reduction techniq ues were employed. CTDIvol: 21.1 mGy. DLP: 2592 mGy-cm. . LIMITATIONS: None. FINDINGS: LOWER CHEST: No significant findings. No nodules or infiltrates. LIVER: Normal size. No masses. No dilated ducts. SPLEEN: Normal size. No focal lesions. PANCREAS: No masses. No significant calcifications. No adjacent inflammation or peripancreatic fluid collections. Pancreatic duct not dilated. GALLBLADDER: Surgically absent. ADRENAL GLANDS: No significant masses or asymmetry. RIGHT KIDNEY AND URETER: No solid masses. No significant calcifications. No hydronephrosis or hyd roureter. LEFT KIDNEY AND URETER: No solid masses. No significant calcifications. No hydronephrosis or hydr oureter. AORTA AND VESSELS: No aneurysm. No dissection. Renal arteries, SMA, celiac without stenosis. RETROPERITONEUM: No retroperitoneal adenopathy, hemorrhage or masses. BOWEL AND PERITONEAL CAVITY: Small bowel unremarkable. The colon is generally dilated with fluid and contrast present. Loss of normal haustral george. No evidence for obstruction. No pericolonic fat stranding. APPENDIX: Normal. PELVIS: No significant masses. Normal bladder. No free fluid. ABDOMINAL WALL: No masses. No hernias. BONES: No significant or acute findings. OTHER: Surgical changes. IMPRESSION: Generalize colitis. No obstruction. TECHNICAL DOCUMENTATION: JOB ID: [id number] Quality ID # [id number]: Final reports with documentation of one or more dose reduction techniques (e.g., Au tomated exposure control, adjustment of the mA and/or kV according to patient size, use of iterative reconstruction technique) 2010 [employer]- All Rights Reserved Reading location - IP/workstation name: [email or web address]
[2018-10-08] MEDS: FLUTICASONE NASAL SPRAY 50 MCG/SPRY 120 SPRAY/16 GM NASL SCH (10:49)
[2018-10-08] MEDS: RIFAXIMIN 550 MG TABLET PO SCH ×2 (10:50→18:10)
--- NOTE | 2018-10-08 16:41 | PDOC PROGRESS REPORT ---
Subjective Progress Note for:: 10/08/18 Subjective:: Better today. Nausea vomiting has improved. Denies abdominal pain. Diarrhea has markedly improved. Denies any chills. at bedside and updated patient and about his condition. Reason For Visit: RECURRENT C DIFF ENTEROCOLITIS Physical Exam Vital Signs: Temp Pulse Resp BP Pulse Ox 98.2 F 75 18 148/83 H 97 10/08/18 12:00 10/08/18 12:00 10/08/18 12:00 10/08/18 12:00 10/08/18 12:00 Intake & Output 10/07/18 10/08/18 10/09/18 06:59 06:59 06:59 Intake Total 3080 1791 200 Output Total 1875 1550 Balance 1205 241 200 Weight 119 kg 120 kg General appearance: PRESENT: cooperative, severe distress, well-developed Head exam: PRESENT: atraumatic, normocephalic Respiratory exam: PRESENT: clear to auscultation harrison, symmetrical. ABSENT: accessory muscle use, rales, rhonchi, tachypnea, wheezes Cardiovascular exam: PRESENT: RRR, +S1, +S2 GI/Abdominal exam: PRESENT: distended, firm, mild tenderness across the abdomen, bowel sounds normal Extremities: PRESENT --AKA left, no edema right. Neurological exam: PRESENT: alert, awake, oriented to person, oriented to place, oriented to time, oriented to situation Results Laboratory Results: 10/07/18 07:12 10/07/18 07:12 10/03/18 10/03/18 10/04/18 16:00 16:00 06:00 Creatine Kinase 1278 H 756 H Troponin I < 0.012 10/04/18 10/04/18 14:26 22:24 Creatine Kinase 516 H 326 H Troponin I Impressions: Cervical Spine CT 10/03/18 14:36 IMPRESSION: Anterolisthesis of C3 on C4. Multilevel degenerative disc disease. Facet arthropathy. Spondylosis. Prior ACDF. Cannot exclude right upper lobe pneumonia. Head CT 10/03/18 14:36 IMPRESSION: NORMAL BRAIN CT WITHOUT CONTRAST. EVIDENCE OF ACUTE STROKE: NO. Chest X-Ray 10/07/18 00:00 IMPRESSION: Enteric tube with the tip partially seen in the proximal stomach. copyright 2011 [employer]- All Rights Reserved KUB X-Ray 10/07/18 00:00 IMPRESSION: Limited evaluation with only the upper abdomen. No free air. Dilated bowel which appears to be the large colon. Abdomen/Pelvis CT 10/08/18 07:00 IMPRESSION: Generalize colitis. No obstruction. Assessment and Plan - Diagnosis (1) Clostridium difficile enterocolitis Is this a current diagnosis for this admission?: Yes Plan: Improving. Leukocytosis improving, diarrhea improved. We will continue IV Flagyl for now. Will resume diet with clear liquid diet and advance as tolerated. If patient tolerating, will change antibiotics to p.o. Patient also on rifaximin which apparently helped in the past. Will continue. Follow CBC and Chem-7 in a.m. (2) Ileus Is this a current diagnosis for this admission?: Yes Plan: Resolved on CT abdomen and pelvis done today, bowel sounds normal. Of note is that patient pulled out NG tube x2 overnight. (3) Nausea and vomiting Qualifiers: Vomiting type: bilious vomiting Qualified Code(s): R11.14 - Bilious vomiting Is this a current diagnosis for this admission?: Yes Plan: Improved. Start diet as earlier stated. 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 Continue Lyrica. (5) Syncope and collapse Is this a current diagnosis for this admission?: Yes Plan: Resolved. (6) Acute kidney injury Is this a current diagnosis for this admission?: Yes Plan: Resolved. However on IV fluid since he was n.p.o. Will reevaluate adequately taking in p.o.'s (7) Concussion Qualifiers: Encounter type: initial encounter Loss of consciousness presence/duration: with LOC of unspecified duration Qualified Code(s): S06.0X9A - Concussion with loss of consciousness of unspecified duration, initial encounter Is this a current diagnosis for this admission?: Yes Plan: Improved. Denies current headache. (8) Tobacco use disorder, severe, dependence Is this a current diagnosis for this admission?: Yes Plan: Smoking cessation counseling was done. Continue nicotine patch.
[2018-10-09] MEDS: METOCLOPRAMIDE HCL INJ/PF 10 MG/2 ML SDV IV SCH ×4 (00:19→19:02)
[2018-10-09] MEDS: PREGABALIN 75 MG CAPSULE PO SCH ×4 (00:20→19:00)
[2018-10-09] MEDS: METRONIDAZOLE 500 MG/NS RTU 500 MG/100 ML RTUPB IV SCH ×4 (00:20→19:01)
[2018-10-09] MEDS: HEPARIN SOD (PORCINE) 5,000 UNIT/ML 1 ML SYRINGE SUBCUT SCH ×3 (05:39→23:59)
[2018-10-09] MEDS: PANTOPRAZOLE SODIUM 40 MG TABLET.DR PO SCH ×2 (05:41→19:00)
[2018-10-09 08:17] LABS: HEMATOCRIT 27.1 % (37.9-51.0); MEAN CORPUSCULAR HEMOGLOBIN 27.4 pg (27.0-33.4); MEAN CORPUSCULAR HGB CONC 33.2 g/dL (32.0-36.0); MEAN CORPUSCULAR VOLUME 83 fl (80-97); PLATELET COUNT 357 10^3/uL (150-450); RED BLOOD COUNT 3.29 10^6/uL (4.35-5.55); RED CELL DISTRIBUTION WIDTH 13.8 % (11.5-14.0); WHITE BLOOD COUNT 10.1 10^3/uL (4.0-10.5)
[2018-10-09 08:25] LABS: ANION GAP 6 (5-19); BLOOD UREA NITROGEN 8 mg/dL (7-20); CALCIUM 8.4 mg/dL (8.4-10.2); CARBON DIOXIDE 24 mmol/L (22-30); CHLORIDE 106 mmol/L (98-107); GLUCOSE 105 mg/dL (75-110); POTASSIUM 3.3 mmol/L (3.6-5.0); SODIUM 135.6 mmol/L (137-145)
[2018-10-09 09:07] LABS: ABSOLUTE LYMPHOCYTES# (MANUAL) 0.8 10^3/uL (0.5-4.7); ABSOLUTE MONOCYTES # (MANUAL) 0.6 10^3/uL (0.1-1.4); ABSOLUTE NEUTROPHILS# (MANUAL) 8.5 10^3/uL (1.7-8.2); BASOPHILS % (MANUAL) 1 % (0-2); EOSINOPHILS % (MANUAL) 1 % (0-6); LYMPHOCYTES % (MANUAL) 8 % (13-45); MONOCYTES % (MANUAL) 6 % (3-13); SEGMENTED NEUTROPHILS % (MAN) 84 % (42-78); TOTAL CELLS COUNTED 100
[2018-10-09 09:08] LABS: HYPOCHROMASIA 1+; OVALOCYTES SLIGHT; PLATELET COMMENT ADEQUATE; POIKILOCYTOSIS SLIGHT; TOXIC GRANULATION SLIGHT
[2018-10-09] MEDS: HYDROMORPHONE HCL INJ/PF 2 MG/ML AMPULE IV PRN ×2 (09:41→20:34)
[2018-10-09] MEDS ORDERED: POTASSIUM CHLORIDE 10 MEQ CAPSULE.ER PO ONE (10:30)
[2018-10-09] MEDS: MORPHINE SULFATE SR 30 MG TABLET PO SCH ×2 (10:51→23:58)
[2018-10-09] MEDS: RIFAXIMIN 550 MG TABLET PO SCH ×2 (10:52→19:02)
[2018-10-09] MEDS: FLUTICASONE NASAL SPRAY 50 MCG/SPRY 120 SPRAY/16 GM NASL SCH (10:52)
[2018-10-09] MEDS: AMMONIUM LACTATE 12% LOTION 225GM BOTTLE TP SCH ×2 (10:53→19:01)
[2018-10-09] MEDS: POTASSI CL 20 MEQ/D5NS 1L 1000 ML IV PRN (11:05)
[2018-10-09] MEDS ORDERED: ONDANSETRON HCL INJ/PF 4 MG/2 ML SDV IV PRN (12:00)
--- NOTE | 2018-10-09 20:04 | PDOC PROGRESS REPORT ---
Subjective Progress Note for:: 10/09/18 Subjective:: Continues to do better. Normal nausea and vomiting. Denies abdominal pain. Diarrhea has also greatly improved. Denies fever at home chills. at bedside and she and patient were updated about patient's condition. Plan is for discharge home in a.m. if tolerating oral intake on his oral medications. Reason For Visit: RECURRENT C DIFF ENTEROCOLITIS Physical Exam Vital Signs: Temp Pulse Resp BP Pulse Ox 97.9 F 87 16 136/73 H 96 10/09/18 16:20 10/09/18 16:20 10/09/18 16:20 10/09/18 16:20 10/09/18 16:20 Intake & Output 10/08/18 10/09/18 10/10/18 06:59 06:59 06:59 Intake Total 1791 3498 2010 Output Total 1550 1070 Balance 241 3498 940 Weight 120 kg 123.3 kg General appearance: PRESENT: cooperative, well-developed Head exam: PRESENT: atraumatic, normocephalic Respiratory exam: PRESENT: clear to auscultation bilaterally, symmetrical. ABSENT: accessory muscle use, rales, rhonchi, tachypnea, wheezes Cardiovascular exam: PRESENT: RRR, +S1, +S2 GI/Abdominal exam: PRESENT: soft, mild tenderness across the abdomen, bowel sounds normal Extremities: PRESENT --AKA left, no edema right. Neurological exam: PRESENT: alert, awake, oriented to person, oriented to place, oriented to time, oriented to situation Results Laboratory Results: 10/09/18 07:22 10/09/18 07:21 10/09/18 10/09/18 07:21 07:22 WBC 10.1 RBC 3.29 L Hgb 9.0 L Hct 27.1 L MCV 83 MCH 27.4 MCHC 33.2 RDW 13.8 Plt Count 357 Seg Neutrophils % Not Reportable Lymphocytes % Not Reportable Monocytes % Not Reportable Eosinophils % Not Reportable Basophils % Not Reportable Absolute Neutrophils Not Reportable Absolute Lymphocytes Not Reportable Absolute Monocytes Not Reportable Absolute Eosinophils Not Reportable Absolute Basophils Not Reportable Sodium 135.6 L Potassium 3.3 L Chloride 106 Carbon Dioxide 24 Anion Gap 6 BUN 8 Creatinine 0.77 Est GFR ( Amer) > 60 Est GFR (Non-Af Amer) > 60 Glucose 105 Calcium 8.4 10/04/18 16:40 Blood Blood Culture - Final NO GROWTH IN 5 DAYS 10/03/18 10/03/18 10/04/18 16:00 16:00 06:00 Creatine Kinase 1278 H 756 H Troponin I < 0.012 10/04/18 10/04/18 14:26 22:24 Creatine Kinase 516 H 326 H Troponin I Impressions: Cervical Spine CT 10/03/18 14:36 IMPRESSION: Anterolisthesis of C3 on C4. Multilevel degenerative disc disease. Facet arthropathy. Spondylosis. Prior ACDF. Cannot exclude right upper lobe pneumonia. Head CT 10/03/18 14:36 IMPRESSION: NORMAL BRAIN CT WITHOUT CONTRAST. EVIDENCE OF ACUTE STROKE: NO. Chest X-Ray 10/07/18 00:00 IMPRESSION: Enteric tube with the tip partially seen in the proximal stomach. copyright 2010 [facility]- All Rights Reserved KUB X-Ray 10/07/18 00:00 IMPRESSION: Limited evaluation with only the upper abdomen. No free air. Dilated bowel which appears to be the large colon. Abdomen/Pelvis CT 10/08/18 07:00 IMPRESSION: Generalize colitis. No obstruction. Assessment and Plan - Diagnosis (1) Clostridium difficile enterocolitis Is this a current diagnosis for this admission?: Yes Plan: Improving. Leukocytosis improved, diarrhea improved. We will d/c IV Flagyl as he is now taking in p.o.'s and tolerating. Will D/C rifaximin. Follow CBC and Chem-7 in a.m. (2) Ileus Is this a current diagnosis for this admission?: Yes Plan: Resolved on CT abdomen and pelvis done yestoday, bowel sounds normal. (3) Nausea and vomiting Qualifiers: Vomiting type: bilious vomiting Qualified Code(s): R11.14 - Bilious vomiting Is this a current diagnosis for this admission?: Yes Plan: Improved. Start diet and tolerating. 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 Continue Lyrica. (5) Syncope and collapse Is this a current diagnosis for this admission?: Yes Plan: Resolved. (6) Acute kidney injury Is this a current diagnosis for this admission?: Yes Plan: Resolved. However on IV fluid since he was n.p.o. Will continue for now (7) Concussion Qualifiers: Encounter type: initial encounter Loss of consciousness presence/duration: with LOC of unspecified duration Qualified Code(s): S06.0X9A - Concussion with loss of consciousness of unspecified duration, initial encounter Is this a current diagnosis for this admission?: Yes Plan: Improved. Denies current headache. (8) Tobacco use disorder, severe, dependence Is this a current diagnosis for this admission?: Yes Plan: Smoking cessation counseling was done. Continue nicotine patch. - Plan Summary Plan Summary: Patient feels markedly improved. Possible discharge home in a.m. if tolerating po and his po's meds.
[2018-10-09] MEDS: VANCOMYCIN HCL INJ 500 MG VIAL PO SCH (23:58)
[2018-10-10] MEDS: METOCLOPRAMIDE HCL INJ/PF 10 MG/2 ML SDV IV SCH ×4 (01:00→17:38)
[2018-10-10] MEDS: PREGABALIN 75 MG CAPSULE PO SCH ×4 (01:00→17:38)
[2018-10-10] MEDS: HYDROMORPHONE HCL INJ/PF 2 MG/ML AMPULE IV PRN ×2 (02:00→07:13)
[2018-10-10] MEDS: VANCOMYCIN HCL INJ 500 MG VIAL PO SCH ×4 (02:15→22:28)
[2018-10-10] MEDS: PANTOPRAZOLE SODIUM 40 MG TABLET.DR PO SCH ×2 (06:41→17:38)
[2018-10-10] MEDS: HEPARIN SOD (PORCINE) 5,000 UNIT/ML 1 ML SYRINGE SUBCUT SCH ×3 (06:42→22:28)
[2018-10-10 06:50] LABS: ABSOLUTE BASOPHILS # (AUTO) 0.1 10^3/uL (0.0-0.2); ABSOLUTE EOSINOPHILS # (AUTO) 0.4 10^3/uL (0.0-0.6); ABSOLUTE NEUT (AUTO) 5.6 10^3/uL (1.7-8.2); HEMATOCRIT 25.6 % (37.9-51.0); HEMOGLOBIN 8.8 g/dL (13.5-17.0); LYMPHOCYTES % (AUTO) 22.3 % (13-45); MEAN CORPUSCULAR HGB CONC 34.2 g/dL (32.0-36.0); MEAN CORPUSCULAR VOLUME 82 fl (80-97); PLATELET COUNT 302 10^3/uL (150-450); RED BLOOD COUNT 3.13 10^6/uL (4.35-5.55); RED CELL DISTRIBUTION WIDTH 13.6 % (11.5-14.0); SEGMENTED NEUTROPHILS % (AUTO) 61.7 % (42-78); TOTAL CELLS COUNTED % (AUTO) 100 %; WHITE BLOOD COUNT 9.1 10^3/uL (4.0-10.5)
[2018-10-10 07:11] LABS: ANION GAP 6 (5-19); BLOOD UREA NITROGEN 5 mg/dL (7-20); CALCIUM 8.2 mg/dL (8.4-10.2); CARBON DIOXIDE 23 mmol/L (22-30); CHLORIDE 107 mmol/L (98-107); GLUCOSE 95 mg/dL (75-110); POTASSIUM 3.7 mmol/L (3.6-5.0); SODIUM 136.1 mmol/L (137-145)
[2018-10-10] MEDS: POTASSI CL 20 MEQ/D5NS 1L 1000 ML IV PRN (07:14)
[2018-10-10] MEDS ORDERED: (PENDING PHARMACY ID) (Morphine Sulfate/Naltrexone [Embeda Er 50-2 Mg Capsule] 1 CAP) PO PRN (07:47)
[2018-10-10] MEDS ORDERED: (PENDING PHARMACY ID) (Lisinopril/Hydrochlorothiazide [Lisinopril-Hctz 20-25 Mg Tab] 1 TAB PO SCH (08:00)
[2018-10-10] MEDS ORDERED: (PENDING PHARMACY ID) (Fexofenadine Hcl [Allegra Allergy] 180 MG) PO SCH (08:00)
[2018-10-10] MEDS: AMMONIUM LACTATE 12% LOTION 225GM BOTTLE TP SCH ×2 (10:23→17:33)
[2018-10-10] MEDS: MORPHINE SULFATE SR 30 MG TABLET PO SCH ×2 (10:32→22:28)
[2018-10-10] MEDS: ESCITALOPRAM OXALATE 10 MG TABLET PO SCH (10:32)
[2018-10-10] MEDS: LISINOPRIL 10 MG TABLET PO SCH (10:33)
[2018-10-10] MEDS: HYDROCHLOROTHIAZIDE 25 MG TABLET PO SCH (10:33)
[2018-10-10] MEDS: FLUTICASONE NASAL SPRAY 50 MCG/SPRY 120 SPRAY/16 GM NASL SCH (10:34)
--- NOTE | 2018-10-10 13:33 | PDOC PROGRESS REPORT ---
Subjective Progress Note for:: 10/10/18 Subjective:: 57-year-old male admitted with severe diarrhea found to have C. difficile KRISTINA presently on p.o. vancomycin 125 mg every 6 hours. Still having the 5-6 loose stools every night. Plan is to repeat the C. difficile PCR today if it is negative plan to discharge patient home tomorrow. Patient reluctently to agree to stay in the hospital for another day. Reason For Visit: RECURRENT C DIFF ENTEROCOLITIS Physical Exam Vital Signs: Temp Pulse Resp BP Pulse Ox 97.9 F 78 15 149/85 H 93 10/10/18 11:10 10/10/18 11:10 10/10/18 11:10 10/10/18 11:10 10/10/18 11:10 Intake & Output 10/09/18 10/10/18 10/11/18 06:59 06:59 06:59 Intake Total 3498 3735 236 Output Total 2370 450 Balance 3498 1365 -214 Weight 123.3 kg 125.1 kg General appearance: PRESENT: no acute distress, obese, well-developed Head exam: PRESENT: atraumatic Eye exam: PRESENT: PERRLA Mouth exam: PRESENT: moist, tongue midline Neck exam: ABSENT: carotid bruit, JVD, lymphadenopathy, thyromegaly Respiratory exam: PRESENT: clear to auscultation harrison. ABSENT: rales, rhonchi, wheezes Cardiovascular exam: PRESENT: RRR. ABSENT: diastolic murmur, rubs, systolic murmur GI/Abdominal exam: PRESENT: normal bowel sounds, soft. ABSENT: distended, guarding, mass, organolmegaly, rebound, tenderness Extremities exam: PRESENT: other - Left BKA Neurological exam: PRESENT: alert, awake, oriented to person, oriented to place, oriented to time, oriented to situation, CN II-XII grossly intact. ABSENT: motor sensory deficit Psychiatric exam: PRESENT: appropriate affect, normal mood. ABSENT: homicidal ideation, suicidal ideation Results Laboratory Results: 10/10/18 06:20 10/10/18 06:20 10/10/18 10/10/18 06:20 06:20 WBC 9.1 RBC 3.13 L Hgb 8.8 L Hct 25.6 L MCV 82 MCH 28.0 MCHC 34.2 RDW 13.6 Plt Count 302 Seg Neutrophils % 61.7 Lymphocytes % 22.3 Monocytes % 11.0 Eosinophils % 4.0 Basophils % 1.0 Absolute Neutrophils 5.6 Absolute Lymphocytes 2.0 Absolute Monocytes 1.0 Absolute Eosinophils 0.4 Absolute Basophils 0.1 Sodium 136.1 L Potassium 3.7 Chloride 107 Carbon Dioxide 23 Anion Gap 6 BUN 5 L Creatinine 0.77 Est GFR ( Amer) > 60 Est GFR (Non-Af Amer) > 60 Glucose 95 Calcium 8.2 L 10/04/18 17:40 Blood Blood Culture - Final NO GROWTH IN 5 DAYS 10/04/18 16:40 Blood Blood Culture - Final NO GROWTH IN 5 DAYS 10/03/18 10/03/18 10/04/18 16:00 16:00 06:00 Creatine Kinase 1278 H 756 H Troponin I < 0.012 10/04/18 10/04/18 14:26 22:24 Creatine Kinase 516 H 326 H Troponin I Impressions: Cervical Spine CT 10/03/18 14:36 IMPRESSION: Anterolisthesis of C3 on C4. Multilevel degenerative disc disease. Facet arthropathy. Spondylosis. Prior ACDF. Cannot exclude right upper lobe pneumonia. Head CT 10/03/18 14:36 IMPRESSION: NORMAL BRAIN CT WITHOUT CONTRAST. EVIDENCE OF ACUTE STROKE: NO. Chest X-Ray 10/07/18 00:00 IMPRESSION: Enteric tube with the tip partially seen in the proximal stomach. copyright 2010 [employer]- All Rights Reserved KUB X-Ray 10/07/18 00:00 IMPRESSION: Limited evaluation with only the upper abdomen. No free air. Dilated bowel which appears to be the large colon. Abdomen/Pelvis CT 10/08/18 07:00 IMPRESSION: Generalize colitis. No obstruction. Assessment and Plan - Diagnosis (1) Clostridium difficile enterocolitis Is this a current diagnosis for this admission?: Yes Plan: Improving. Leukocytosis improved, diarrhea improved. We will d/c IV Flagyl as he is now taking in p.o.'s and tolerating. Will D/C rifaximin. Follow CBC and Chem-7 in a.m. 10/10/2018-patient came with the C. difficile cell enterocolitis presently on p.o. vancomycin. Still having to 5-6 loose stools every night. Plan to recheck C. difficile today if it is negative plan to discharge him home later tonight or tomorrow. (2) Hyponatremia Is this a current diagnosis for this admission?: Yes Plan: 10/10/2018-patient came in with hyponatremia most likely secondary to nausea vomitings and diarrhea today's serum sodium is 136 hyponatremia is resolved. (3) Nausea and vomiting Qualifiers: Vomiting type: bilious vomiting Qualified Code(s): R11.14 - Bilious vo miting Is this a current diagnosis for this admission?: Yes Plan: Improved. Start diet and tolerating. 10/10/2018-patient came into nausea and vomitings though symptoms are resolved now. (4) Syncope and collapse Is this a current diagnosis for this admission?: Yes Plan: Resolved. 10/10/2018-patient came in with syncope and collapse though symptoms are resolved now. (5) Ileus Is this a current diagnosis for this admission?: Yes Plan: Resolved on CT abdomen and pelvis done yestoday, bowel sounds normal. 10/10/2018-CT scan of the abdomen pelvis was done 2 days ago indicates generalized colitis no obvious obstruction. Patient on.p.o. vancomycin. Afebrile. - Time Time Spent with patient: 15-24 minutes Medications reviewed and adjusted accordingly: Yes Anticipated discharge: Home
[2018-10-10] MEDS: OXYCODONE HCL IR 5 MG TABLET PO PRN (15:48)
[2018-10-11] MEDS: PREGABALIN 75 MG CAPSULE PO SCH ×3 (02:00→12:16)
[2018-10-11] MEDS: VANCOMYCIN HCL INJ 500 MG VIAL PO SCH ×3 (03:19→14:42)
[2018-10-11] MEDS: HEPARIN SOD (PORCINE) 5,000 UNIT/ML 1 ML SYRINGE SUBCUT SCH ×2 (05:56→14:38)
[2018-10-11] MEDS: METOCLOPRAMIDE HCL INJ/PF 10 MG/2 ML SDV IV SCH ×3 (05:56→12:15)
[2018-10-11] MEDS: PANTOPRAZOLE SODIUM 40 MG TABLET.DR PO SCH (05:57)
[2018-10-11] MEDS ORDERED: LORATADINE 10 MG TABLET PO SCH (08:00)
[2018-10-11] MEDS: AMMONIUM LACTATE 12% LOTION 225GM BOTTLE TP SCH (09:30)
[2018-10-11] MEDS: LISINOPRIL 10 MG TABLET PO SCH (09:40)
[2018-10-11] MEDS: ESCITALOPRAM OXALATE 10 MG TABLET PO SCH (09:40)
[2018-10-11] MEDS: HYDROCHLOROTHIAZIDE 25 MG TABLET PO SCH (09:40)
[2018-10-11] MEDS: MORPHINE SULFATE SR 30 MG TABLET PO SCH (09:40)
[2018-10-11] MEDS: FLUTICASONE NASAL SPRAY 50 MCG/SPRY 120 SPRAY/16 GM NASL SCH (09:41)
[2018-10-11 10:56] LABS: ABSOLUTE BASOPHILS # (AUTO) 0.1 10^3/uL (0.0-0.2); ABSOLUTE EOSINOPHILS # (AUTO) 0.2 10^3/uL (0.0-0.6); ABSOLUTE LYMPHOCYTES (AUTO) 1.3 10^3/uL (0.5-4.7); ABSOLUTE MONOCYTES (AUTO) 0.8 10^3/uL (0.1-1.4); ABSOLUTE NEUT (AUTO) 9.2 10^3/uL (1.7-8.2); BASOPHILS % (AUTO) 0.6 % (0-2); EOSINOPHILS % (AUTO) 1.3 % (0-6); HEMATOCRIT 27.1 % (37.9-51.0); HEMOGLOBIN 9.1 g/dL (13.5-17.0); LYMPHOCYTES % (AUTO) 11.2 % (13-45); MEAN CORPUSCULAR HEMOGLOBIN 27.5 pg (27.0-33.4); MEAN CORPUSCULAR HGB CONC 33.6 g/dL (32.0-36.0); MEAN CORPUSCULAR VOLUME 82 fl (80-97); MONOCYTES % (AUTO) 7.2 % (3-13); PLATELET COUNT 302 10^3/uL (150-450); RED CELL DISTRIBUTION WIDTH 13.5 % (11.5-14.0); SEGMENTED NEUTROPHILS % (AUTO) 79.7 % (42-78); TOTAL CELLS COUNTED % (AUTO) 100 %; WHITE BLOOD COUNT 11.5 10^3/uL (4.0-10.5)
[2018-10-11 12:28] LABS: ALANINE AMINOTRANSFERASE 23 U/L (21-72); ALBUMIN 2.5 g/dL (3.5-5.0); ALKALINE PHOSPHATASE 71 U/L (38-126); ANION GAP 6 (5-19); ASPARTATE AMINO TRANSFERASE 10 U/L (17-59); BILIRUBIN,DIRECT 0.3 mg/dL (0.0-0.4); BILIRUBIN,TOTAL 0.4 mg/dL (0.2-1.3); BLOOD UREA NITROGEN 5 mg/dL (7-20); CALCIUM 8.1 mg/dL (8.4-10.2); CARBON DIOXIDE 25 mmol/L (22-30); CHLORIDE 103 mmol/L (98-107); GLUCOSE 100 mg/dL (75-110); POTASSIUM 3.7 mmol/L (3.6-5.0); SODIUM 133.5 mmol/L (137-145)
[2018-10-11 12:50] VITALS: BP 150/94
--- NOTE | 2018-10-11 14:03 | PDOC DISCHARGE SUMMARY ---
General - Admit/Disc Date/PCP Admission Date/Primary Care Provider: 10/03/18 20:05 ISELA DAVIS NP Discharge Date: 10/11/18 - Discharge Diagnosis (1) Clostridium difficile enterocolitis Is this a current diagnosis for this admission?: Yes Summary: mproving. Leukocytosis improved, diarrhea improved. We will d/c IV Flagyl as he is now taking in p.o.'s and tolerating. Will D/C rifaximin. Follow CBC and Chem-7 in a.m. 10/10/2018-patient came with the C. difficile cell enterocolitis presently on p.o. vancomycin. Still having to 5-6 loose stools every night. Plan to recheck C. difficile today if it is negative plan to discharge him home later tonight or tomorrow. 10/11/2018-c diff came back positive again yesterday. Patient is expressing desire to go home on p.o. vancomycin today. (2) Hyponatremia Is this a current diagnosis for this admission?: Yes Summary: 10/10/2018-patient came in with hyponatremia most likely secondary to nausea vomitings and diarrhea today's serum sodium is 136 hyponatremia is resolved. 10/11/2018-patient serum sodium today is 133.5. Hyponatremia may be secondary to diarrhea. (3) Nausea and vomiting Is this a current diagnosis for this admission?: Yes Summary: 10/11/2018-patient was admitted for nausea and vomiting's. Most likely it is due to C. difficile colitis. Nausea vomiting's are resolved. Patient is able to tolerate regular diet. (4) Syncope and collapse Is this a current diagnosis for this admission?: Yes Summary: 10/11/2018-patient came in with syncopal episodes and collapse most likely secondary to severe diarrhea caused by C. difficile. Syncope is resolved. (5) Ileus Is this a current diagnosis for this admission?: Yes Summary: 10/11/2018-patient came in with eye ileus follow-up CT scan shows resolution. Patient does not have any problem with the diet or with bowel movements. Is going home today. - Additional Information Resuscitation Status: Full Code Discharge Diet: Cardiac Discharge Activity: Activity As Tolerated Prescriptions: Vancomycin HCl 125 mg PO QID 7 Days cap Home Medications: Alprazolam [Xanax 0.5 mg Tablet] 0.5 mg PO Q12HP PRN 10/03/18 Ammonium Lactate [Lac-Hydrin 12% Lotion 225Gm/Bottle] 1 applic TOP BID 10/03/18 Escitalopram Oxalate [Lexapro 10 mg Tablet] 10 mg PO DAILY 10/03/18 Fexofenadine HCl [Sumaya Allergy] 180 mg PO QAM 10/03/18 Fluticasone Propionate [Flonase Nasal Industry 50 Mcg/Industry 16 gm] 2 spray NASL DAILY 10/03/18 Hydroxyzine HCl [Atarax 50 mg Tablet] 100 mg PO BID 10/03/18 Lisinopril/Hydrochlorothiazide [Lisinopril-Hctz 20-25 mg Tab] 1 tab PO DAILY 10/03/18 Morphine Sulfate/Naltrexone [Embeda ER 50-2 mg Capsule] 1 cap PO Q12HP PRN 10/03/18 Oxycodone HCl 10 mg PO Q6HP PRN 10/03/18 Vancomycin HCl 125 mg PO QID 7 Days cap 10/11/18 History of Present Illness History of Present Illness: MILAGROS FAIRBANKS JR is a 57 year old male 57 year old male who presented to the emergency room with a 4-day history of multiple diarrhea stools. He admits numerous watery diarrhea stools on a daily basis progressively worsening, to become severe, over the last several days. Today, after having a severe diarrhea stool, he stood up from the toilet and passed out striking his head on the floor and was unconscious for unknown period of time however after arousing he continued to lie on the floor due to his feelings of weakness. He admits the associated symptoms of mild nausea and moderate to severe abdominal cramping/pain. He admits prior similar symptoms with Clostridium difficile enterocolitis in the past. He denies identification of any aggravating or ameliorating factors for his diarrhea. In the emergency room he was found to have a mildly elevated white blood count 16,000 and a C. difficile toxin positive stool. CT scan also showed loops of bowel filled with fluid consistent with enteritis. Patient was subsequently admitted to the hospital for further evaluation and treatment of his recurrent Clostridium difficile enterocolitis. Hospital Course Hospital Course: 10/11/2018-patient came in at syncope and collapse most likely secondary to nausea vomiting diarrhea found to have C. difficile positive. Received 20-week course of p.o. vancomycin and repeat cultures came back positive again. Patient expressed desire to go home today and I reluctantly discharging him and strongly advised him to use extreme precautions to prevent the spread of C. difficile in the household. Patient verbalized response. Physical Exam Vital Signs: Temp Pulse Resp BP Pulse Ox 98.6 F 87 18 150/94 H 99 10/11/18 12:49 10/11/18 12:49 10/11/18 12:49 10/11/18 12:49 10/11/18 12:49 Intake & Output 10/10/18 10/11/18 10/12/18 06:59 06:59 06:59 Intake Total 3735 236 Output Total 2370 1500 Balance 1365 -1264 Weight 125.1 kg 125.3 kg General appearance: PRESENT: no acute distress, well-developed Head exam: PRESENT: atraumatic Eye exam: PRESENT: PERRLA Ear exam: PRESENT: normal external ear exam Neck exam: ABSENT: carotid bruit, JVD, lymphadenopathy, thyromegaly Respiratory exam: PRESENT: clear to auscultation harrison. ABSENT: rales, rhonchi, wheezes Cardiovascular exam: PRESENT: RRR. ABSENT: diastolic murmur, rubs, systolic murmur GI/Abdominal exam: PRESENT: normal bowel sounds, soft. ABSENT: distended, guarding, mass, organolmegaly, rebound, tenderness Rectal exam: PRESENT: deferred Extremities exam: PRESENT: other - Left BKA. Neurological exam: PRESENT: alert, awake, oriented to person, oriented to place, oriented to time, oriented to situation, CN II-XII grossly intact. ABSENT: motor sensory deficit Psychiatric exam: PRESENT: appropriate affect, normal mood. ABSENT: homicidal ideation, suicidal ideation Results Laboratory Results: 10/11/18 10:14 10/11/18 10:14 10/11/18 10/11/18 10:14 10:14 WBC 11.5 H RBC 3.30 L Hgb 9.1 L Hct 27.1 L MCV 82 MCH 27.5 MCHC 33.6 RDW 13.5 Plt Count 302 Seg Neutrophils % 79.7 H Lymphocytes % 11.2 L Monocytes % 7.2 Eosinophils % 1.3 Basophils % 0.6 Absolute Neutrophils 9.2 H Absolute Lymphocytes 1.3 Absolute Monocytes 0.8 Absolute Eosinophils 0.2 Absolute Basophils 0.1 Sodium 133.5 L Potassium 3.7 Chloride 103 Carbon Dioxide 25 Anion Gap 6 BUN 5 L Creatinine 0.72 Est GFR ( Amer) > 60 Est GFR (Non-Af Amer) > 60 Glucose 100 Calcium 8.1 L Magnesium 1.4 L Total Bilirubin 0.4 AST 10 L ALT 23 Alkaline Phosphatase 71 Total Protein 5.0 L Albumin 2.5 L 10/03/18 10/03/18 10/04/18 16:00 16:00 06:00 Creatine Kinase 1278 H 756 H Troponin I < 0.012 10/04/18 10/04/18 14:26 22:24 Creatine Kinase 516 H 326 H Troponin I Impressions: Cervical Spine CT 10/03/18 14:36 IMPRESSION: Anterolisthesis of C3 on C4. Multilevel degenerative disc disease. Facet arthropathy. Spondylosis. Prior ACDF. Cannot exclude right upper lobe pneumonia. Head CT 10/03/18 14:36 IMPRESSION: NORMAL BRAIN CT WITHOUT CONTRAST. EVIDENCE OF ACUTE STROKE: NO. Chest X-Ray 10/07/18 00:00 IMPRESSION: Enteric tube with the tip partially seen in the proximal stomach. copyright 2010 [employer]- All Rights Reserved KUB X-Ray 10/07/18 00:00 IMPRESSION: Limited evaluation with only the upper abdomen. No free air. Dila meryl bowel which appears to be the large colon. Abdomen/Pelvis CT 10/08/18 07:00 IMPRESSION: Generalize colitis. No obstruction. Qualifiers - * PATIENT BEING DISCHARGED WITH ANY OF THE FOLLOWING DIAGNOSIS: No VTE patient discharged on overlapping Therapy?: No
[2018-10-11] MEDS: OXYCODONE HCL IR 5 MG TABLET PO PRN (14:38)
[2018-10-11] MEDS: MAGNESIUM SULFATE/D5W 1 GM/100 ML RTUPB IV SCH ×2 (14:38→15:56)
== END 2018-10-11 19:26 | disposition home health service (06) | DRG 372 ==
LOC: ER 13:18 → EH 20:05 → 5 21:54
PROVIDERS: ADMIT Emergency Medicine; ATTEND Emergency Medicine
DX: A04.71 Enterocolitis due to Clostridium difficile, recurrent (principal); S06.0X9A Concussion with loss of consciousness of unspecified duration, initial encounter; E87.1 Hypo-osmolality and hyponatremia; K56.7 Ileus, unspecified; N17.9 Acute kidney failure, unspecified; R55 Syncope and collapse; M81.0 Age-related osteoporosis without current pathological fracture; G89.4 Chronic pain syndrome; G54.6 Phantom limb syndrome with pain; D64.89 Other specified anemias; F17.210 Nicotine dependence, cigarettes, uncomplicated; Z89.512 Acquired absence of left leg below knee; Z79.899 Other long term (current) drug therapy; Z82.49 Family history of ischemic heart disease and other diseases of the circulatory system; Z91.013 Allergy to seafood; Z88.8 Allergy status to other drugs, medicaments and biological substances; Z91.048 Other nonmedicinal substance allergy status
CPT/HCPCS: 36415; 70450; 71045; 72125; 74018; 74177; 80048; 80053; 81001; 82550; 82962; 83605; 83690; 83735; 84439; 84443; 84481; 84484; 85025; 87040; 87493; 93005; 93010; 94799; 96361; 96365; 96372; 96375; 99285; A9270-GY; J0500; J1170; J1644; J2060; J2300; J2405; J2765; J3370; J3475; J3480; J3490; J7030; J7120

== ENCOUNTER 2018-10-15 05:17 | Emergency (ER) | payer OTHER ==
[2018-10-15] MEDS ORDERED: PROPOFOL 0 MG/0 ML INFUS..BTL IV ONE (05:31)
--- NOTE | 2018-10-15 06:16 | ER Document Report ---
ED General - General Stated Complaint: SHORTNESS OF BREATH Primary Care Provider: ISELA DAVIS NP [Primary Care Provider] - Follow up as needed Notes: Patient is a 57-year-old male who presents via ambulance in respiratory distress. Patient was recent discharge from hospital 2 days ago after having a C. difficile infection. Patient arrives poorly responsive and obviously having difficulty breathing. Patient is unable to talk or answer questions at this time. says the patient called out tonight when she found him working very hard to breathe and looking unwell and therefore she called the ambulance. She said yesterday he was doing well. TRAVEL OUTSIDE OF THE [place] IN LAST 30 DAYS: No - Related Data Allergies/Adverse Reactions: shellfish derived Allergy (Severe, Verified 09/19/18 14:11) Anaphylaxis gabapentin [From Neurontin] Adverse Reaction (Verified 09/19/18 14:11) shake, sweat cats Allergy (Unknown, Uncoded 09/19/18 14:11) Past Medical History - Social History Smoking Status: Unknown if Ever Smoked Frequency of alcohol use: None Drug Abuse: None Family History: Hypertension. denies: CAD, DM, Malignancy - Past Medical History Cardiac Medical History: Reports: Hx Peripheral Vascular Disease Denies: Hx Coronary Artery Disease, Hx Heart Attack, Hx Hypertension, Hx Pulmonary Embolism Pulmonary Medical History: Reports: Hx Pneumonia Denies: Hx Asthma, Hx Bronchitis, Hx COPD, Hx Respiratory Failure, Hx Sleep Apnea, Hx Tuberculosis Neurological Medical History: Denies: Hx Cerebrovascular Accident, Hx Seizures Endocrine Medical History: Denies: Hx Diabetes Mellitus Type 1, Hx Diabetes Mellitus Type 2 Renal/ Medical History: Denies: Hx Peritoneal Dialysis Malignancy Medical History: Denies Hx Lung Cancer GI Medical History: Denies: Hx Cirrhosis, Hx Hepatitis Musculoskeletal Medical History: Reports Hx Arthritis, Denies Hx Fibromyalgia, Denies Hx Gout, Denies Hx Muscular Dystrophy Skin Medical History: Denies Hx Eczema, Denies Hx Psoriasis Traumatic Medical History: Denies: Hx Fractures Infectious Medical History: Reports: Hx C-Diff. Denies: Hx Hepatitis, Hx HIV Past Surgical History: Reports: Hx Appendectomy, Hx Orthopedic Surgery - Total of at least 15 surgeries on his left knee before the AKA, Hx Tonsillectomy, Other - Spinal surgery of neck and back. Denies: Hx Bowel Surgery, Hx Cece cystectomy, Hx Coronary Artery Bypass Graft, Hx Gastric Bypass Surgery, Hx Herniorrhaphy, Hx Pacemaker - Immunizations Hx Diphtheria, Pertussis, Tetanus Vaccination: Yes Hx Pneumococcal Vaccination: 03/20/15 Review of Systems - Review of Systems -: Yes ROS unobtainable due to patient's medical condition - Patient is too sick to speak or answer questions Physical Exam - Notes Notes: General Appearance: Patient almost completely unresponsive with very little purposeful movement. Vitals: reviewed, See vital signs table. Head: no swelling or tenderness to the head Eyes: Pupils very sluggish but equal bilaterally. Mouth: No decreasd moisture Throat: No tonsillar inflammation, No airway obstruction, No lymphadenopathy Neck: Supple, no neck tenderness, No thyromegaly Lungs: Very slow breathing. Heart: Tachycardic rate, Regular rythm, No murmur, no rub Abdomen: Normal BS, soft, No rigidity, No abdominal tenderness, No guarding, no rebound, no abdominal masses, no organomegaly Extremities: [id number] amputation of left lower extremity. 2+ edema in right lower extremity. Skin: warm, dry, appropriate color, no rash Neuro: Unresponsive. Pupils 4mm equal but sluggish. Course - Re-evaluation Re-evalutation: 10/15/18 06:48 When I first entered the room the patient was on a nonrebreather. He had very shallow breathing with this. I informed nurses to obtain a Ambu bag so that we could help him breathe. Patient was very poorly responsive and had very little purposeful movement. Skin color was pale. I spoke with the who just arrived and asked her if he had any advanced directive wishes. She says that he is a full code and would be okay with being placed on a ventilator. Therefore I called respiratory therapy to come so we could intubate the patient and place him on the ventilator. While we are manually ventilating the patient his pulse became more and more faint and then we lost pulses and immediately started CPR. CPR was continued and peripheral IV was placed in left arm. I also placed an IO in the right tibia. Patient was given a liter bolus IV fluids as well as several rounds of epinephrine. Patient was also given an amp of bicarb with an amp of calcium gluconate. Patient was intermittently between PEA and asystole. Eventually we did get pulses back. In the meantime I had the nurses mix a epinephrine drip. While mixing epinephrine drip patient lost pulses again. We only maintained pulses for approximately 1 to 2 minutes. We continued with several rounds of epinephrine and another amp of bicarb. We did regain pulses again. Epinephrine drip was running. Despite being on epinephrine drip we lost pulses again. He continued CPR again with a few rounds of epinephrine. Patient was continuously on epinephrine drip. We regained pulses briefly again. I was able to intubate the patient as he was becoming difficult to bag for the RT's. Patient was intubated. We maintained pulses for another couple minutes and then we lost them again. This continued to happen where the patient would go between asystole and PEA. We would eventually get pulses but would always lose him. I eventually placed the patient on both an epi and nor epi drip. With both drips running at high dosages. Despite this we could never maintain pulses for more than several minutes. At the end we would only regain very faint thready pulses and they would only last 30 to 45 seconds despite being on high dose of epinephrine and norepinephrine drips. I therefore pronounced the patient as he cannot maintain a pulse and he had no cardiac activity on bedside ultrasound. I informed the family and their questions were answered. Dictation of this chart was performed using voice recognition software; therefore, there may be some unintended grammatical errors. Procedures - Intubation Orotracheal Airway evaluation: Obese Mallampati Classification: Class 2 Intubation method: Orotracheal Blade type: Gianni Blade size: 4 Equipment used: Glidescope ETT size: 7.5 Breath Sounds after Intubation: Equal Post Intubation Xray: No - Patient not stable long enough to onbtain xray Intubation Complications: No complications Discharge - Discharge Clinical Impression: Cardiac arrest Respiratory failure Qualifiers: Chronicity: acute Respiratory failure complication: hypoxia Qualified Code(s): J96.01 - Acute respiratory failure with hypoxia Disposition: Referrals: ISELA DAVIS NP [Primary Care Provider] - Follow up as needed
[2018-10-15 08:24] VITALS: BP 126/88
--- NOTE | 2018-10-15 09:10 | EKG REPORT ---
SEVERITY:- ABNORMAL ECG - SINUS RHYTHM RIGHT BUNDLE BRANCH BLOCK : Confirmed by: Robbie Hernández MD 15-Oct-2018 09:10:09
[2018-10-15] MEDS ORDERED: EPINEPHRINE INJ 1 MG/10 ML DISP.SYRIN ONE (15:33)
[2018-10-15] MEDS ORDERED: SODIUM BICARBONATE 8.4% INJ 50 MEQ/50 ML DISP.SYRIN ONE (15:33)
[2018-10-15] MEDS ORDERED: CALCIUM GLUCONATE 1000 MG/10 ML INJ IV ONE (15:33)
== END 2018-10-15 08:02 | disposition expired ==
LOC: ER 05:17
PROC: 0BH17EZ Insertion of Endotracheal Airway into Trachea, Via Natural or Artificial Opening (ICD-10-PCS; principal; 2018-10-15)
DX: I46.9 Cardiac arrest, cause unspecified (principal); J96.01 Acute respiratory failure with hypoxia
CPT/HCPCS: 31500; 93005; 93010; J0610; J0171; J3490